=== PATIENT | male | born 1980 | race Caucasian/White ===

== ENCOUNTER 2017-11-16 19:10 | Emergency (ER) | payer OTHER, MEDICAID, SELFPAY ==
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
[2017-11-16 19:22] VITALS: BP 171/113; PULSE 94; RESP 15; TEMP 36.4; O2SAT 100; BMI 19.1
[2017-11-16] MEDS: DOXYCYCLINE HYCLATE 100 MG TABLET PO (19:53)
[2017-11-16] MEDS: IBUPROFEN 400 MG TABLET 800 MG PO (19:53)
[2017-11-16] MEDS: levETIRAcetam 250 MG TABLET 1000 MG PO (19:54)
[2017-11-16 20:17] VITALS: BP 160/90; PULSE 92; RESP 18; TEMP 36.3; O2SAT 98
--- NOTE | 2017-11-21 16:38 | PC.NURSE ---
Called for pt follow up,no answer
== END 2017-11-16 20:17 | disposition home or self-care (01) ==
PROVIDERS: Emergency Provider Emergency Medicine
DX: L03.116 Cellulitis of left lower limb (principal)
CPT/HCPCS: 99282; 99283

== ENCOUNTER 2019-07-07 16:43 | Emergency (ER) | payer MEDICARE, MEDICAID, SELFPAY ==
[2019-07-07 16:56] VITALS: BP 173/111; PULSE 79; RESP 22; TEMP 37.1; O2SAT 99; BMI 22.4
--- NOTE | 2019-07-07 16:59 | DI.RAD.S_ITS ---
PROCEDURE: XR HAND LT MIN 3V INDICATIONS: swelling / pain TECHNIQUE: 3 views of the hand(s) acquired. COMPARISON: [facility], , HAND 3V LEFT, 07/25/2009, 17:20. FINDINGS: Bones: There is suggestion of cortical irregularity involving the base of the left fourth or fifth metacarpal seen only on the lateral projection. There is moderate overlying soft tissue swelling. No definite fractures or dislocations identified otherwise. Carpal bones are normally aligned. No suspicious bony lesions. Soft tissues: No suspicious soft tissue calcifications. IMPRESSION: Moderate soft tissue swelling of the left hand with possible nondisplaced base of fourth or fifth metacarpal fracture seen only on the lateral projection. Recommend immobilization and repeat imaging in 10-14 days. Dictated by: Jamal Rao M.D. on 07/07/2019 at 17:23 Approved by: Jamal Rao M.D. on 07/07/2019 at 17:25
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
[2019-07-07] MEDS: CLINDAMYCIN 150 MG CAPSULE 300 MG PO (19:53)
[2019-07-07] MEDS: KETOROLAC 60 MG/2 ML VIAL IM (19:53)
[2019-07-07 20:05] VITALS: BP 155/91; PULSE 82; RESP 19; O2SAT 98
== END 2019-07-07 20:11 | disposition home or self-care (01) ==
PROVIDERS: Emergency Provider Nurse Practitioner Family
DX: S62.339A Displaced fracture of neck of unspecified metacarpal bone, initial encounter for closed fracture (principal); L03.114 Cellulitis of left upper limb; W22.8XXA Striking against or struck by other objects, initial encounter
CPT/HCPCS: 29125; 73130; 96372; 99283; 99284; J1885

== ENCOUNTER 2019-08-01 17:34 | Emergency (ER) | payer MEDICARE, MEDICAID, SELFPAY ==
--- NOTE | 2019-08-01 18:13 | ED_ITS ---
HPI - Extremity Injury (Upper) General Chief Complaint: Extremity Problem,Nontraumatic Stated Complaint: Bilateral wrist/hand pain Time Seen by Provider: 08/01/19 18:02 Source: patient Mode of arrival: Ambulatory Limitations: no limitations History of Present Illness HPI narrative: 39M daily smoker and user of IV drugs presents with bilateral hand and wrist pain since falling off his scooter a few days ago. His pain is worse with motion and improves with rest. He denies other injury. Also he had a small superficial abscess on the dorsum of R foream which he drained himself, but has some surrounding erythema. He denies systemic findings such as fever, chills, nausea or vomiting. Has no chest pain or shortness of breath. Finally, patient states that he is out of his seizure medication MD complaint: injury to: left, right, wrist and hand Onset (ago): day(s) Other injuries: none Handedness: right Place: outdoors Severity: moderate Relieving factors: immobilization Exacerbating factors: movement of extremity Context: fall and direct blow Associated symptoms: denies other symptoms Related Data Home Medications Medication Instructions Recorded Confirmed Diltiazem Hydrochloride (Cardizem) 240 mg PO Q DAY #0 10/28/09 FUROSEMIDE (Lasix) 20 mg Q DAY #0 10/28/09 HYDROCHLOROTHIAZIDE (Hydrodiuril / 25 mg Q DAY #0 10/28/09 Hctz) LISINOPRIL (Zestril / Prinivil) 10 mg Q DAY #0 10/28/09 [ISOSORBIDE] 30 mg PO Q DAY #0 10/28/09 [LEVETIRACETA] 1,500 mg BID #0 11/04/09 Previous Rx's Medication Instructions Recorded levetiracetam [Keppra] 1,000 mg PO BID #120 tab 11/16/17 sertraline 25 mg PO DAILY #30 tab 11/16/17 clindamycin HCl 300 mg PO QID #40 cap 07/07/19 doxycycline hyclate 100 mg PO BID #20 cap 08/01/19 levetiracetam [Keppra] 1,500 mg PO BID 30 Days #180 tab 08/01/19 Allergies Allergy/AdvReac Type Severity Reaction Status Date / Time morphine [MORPHINE] Allergy Severe mccann on Verified 11/16/17 19:22 skin Penicillins [PENICILLINS] AdvReac Severe vomiting Verified 11/16/17 19:22 Review of Systems Constitutional Constitutional: Denies chills, Denies fatigue, Denies fever(s), Denies frequent falls, Denies lethargy and Denies weakness Eyes Eyes: Denies change in vision, Denies eye discharge, Denies irritation and Denies loss of vision ENT Ears, Nose, Mouth, and Throat: Denies change in voice, Denies dizziness, Denies neck pain, Denies sore throat and Denies throat swelling Cardiovascular Cardiovascular: Denies chest pain, Denies irregular heart rhythm, Denies lightheadedness, Denies palpitations, Denies dyspnea, Denies dyspnea on exertion and Denies orthopnea Respiratory Respiratory: Denies cough, Denies dyspnea, Denies dyspnea on exertion and Denies wheezing Gastrointestinal Gastrointestinal: Denies abdominal pain, Denies change in bowel habits, Denies diarrhea, Denies nausea and Denies vomiting Musculoskeletal Musculoskeletal: Reports arthralgias, Reports joint swelling, Denies neck pain and Denies numbness Integumentary/Breasts Skin/Breast: Denies pruritus, Reports erythema, Denies rash, Reports skin pain, Reports skin swelling and Denies wounds Neurologic Neurologic: Denies behavioral changes, Denies confusion, Denies dizziness, Denies frequent falls, Denies loss of vision, Denies numbness and Denies weakness Psychiatric Psychiatric: Denies anxiety, Denies behavioral changes, Denies confusion, Denies depression, Denies homicidal ideation and Denies suicidal ideation Endocrine Endocrine: Denies fatigue, Denies flushing and Denies palpitations Hematologic/Lymphatic Hematologic/Lymphatic: Denies easy bruising Allergic/Immunologic Allergic/Immunologic: Denies urticaria, Denies throat swelling and Denies wheezing Patient History Medical History Epilepsy (Acute) Hypertension (Acute) Surgical History No pertinent past surgical history (Acute) Social History Smoking Status: Current every day smoker Smoking Status: Current every day smoker tobacco type: cigarettes alcohol intake frequency: a few times a week Substance Use Type: marijuana Exam Narrative Exam Narrative: GENERAL: [39] year old patient appears stated age. Well- nourished, well-developed patient, in mild distress. HEAD: Atraumatic. Normocephalic. EYES: Pupils equal round and reactive. Extraocular motions intact. No scleral icterus. No injection or drainage. ENT: Nose without bleeding, purulent drainage. Throat without erythema, tonsill ar hypertrophy or exudate. Airway patent. NECK: Trachea midline. Non tender CARDIOVASCULAR: Regular rate and rhythm without murmurs, gallops, or rubs. RESPIRATORY: Clear to auscultation. Breath sounds equal bilaterally. No wheezes, rales, or rhonchi. GASTROINTESTINAL: Abdomen soft, non-tender, nondistended. EXTREMITIES: Pain with full ROM of B/L hand/wrist. No obvious deformity. Closed. No numbness or tingling. BACK: Nontender without deformity or crepitance. No flank tenderness. NEURO: AOx3. SKIN: No rash or erythema of visible areas Initial Vital Signs Initial Vital Signs: Vital Signs Temperature 98.3 F 08/01/19 18:18 Pulse Rate 80 08/01/19 18:18 Respiratory Rate 18 08/01/19 18:18 Blood Pressure 166/113 H 08/01/19 18:18 Pulse Oximetry 99 08/01/19 18:18 Course Orders Ordered: ED Orders 08/01/19 18:13 XR hand LT min 3V Stat XR hand RT min 3V Stat XR wrist LT min 3V Stat XR wrist RT min 3V Stat Vital Signs Vital signs: Vital Signs - 8 hr 08/01/19 18:18 Temperature 98.3 F Pulse Rate 80 Respiratory Rate 18 Blood Pressure 166/113 H Pulse Oximetry 99 MDM - Extremity Injury (Upper) Imaging Data Extremity x-ray #1: Radiologist's Impression: [address] [address] XRay Report Signed Patient: Amish Marc LMR#: [id number] : 1980Acct:[id number] Age/Sex: 39 / MDate of Service: 08/01/19 Loc: ED Accession Number: [id number] Procedure: XR wrist RT min 3V Ordering Provider: Mike Powell D.O. PROCEDURE: XR WRIST RT MIN 3V INDICATIONS: fall with wrist pain TECHNIQUE: 4 views of the wrist were acquired. COMPARISON: [facility], , WRIST MINIMUM 3 VIEWS LEFT, 07/25/2009, 17:26. FINDINGS: Bones: No fractures or dislocations. No suspicious bony lesions. Scaphoid view: Scaphoid is intact. Soft tissues: No suspicious soft tissue calcifications. IMPRESSION: No acute right wrist fracture or dislocation. Dictated by: Nemesio Gray M.D. on 08/01/2019 at 18:43 Approved by: Nemesio Gray M.D. on 08/01/2019 at 18:[address] [address] XRay Report Signed Patient: Amish Marc LMR#: [id number] : 1980Acct:[id number] Age/Sex: 39 / MDate of Service: 08/01/19 Loc: ED Accession Number: [id number] Procedure: XR wrist LT min 3V Ordering Provider: Mike Powell D.O. PROCEDURE: XR WRIST LT MIN 3V INDICATIONS: fall with wrist pain TECHNIQUE: 4 views of the wrist were acquired. COMPARISON: [facility], WRIST MINIMUM 3 VIEWS LEFT, 07/25/2009, 17:26. FINDINGS: Bones: No fractures or dislocations. No suspicious bony lesions. Scaphoid view: Scaphoid is grossly intact. Soft tissues: No suspicious soft tissue calcifications. IMPRESSION: No acute left wrist fracture or dislocation. Dictated by: Nemesio Gray M.D. on 08/01/2019 at 18:42 Approved by: Nemesio Gray M.D. on 08/01/2019 at 18:43 Amish Marc 39 M [address] [address] XRay Report Signed Patient: Amish Marc LMR#: [id number] : 1980Acct:[id number] Age/Sex: 39 / MDate of Service: 08/01/19 Loc: ED Accession Number: [id number] Procedure: XR hand LT min 3V Ordering Provider: Mike Powell D.O. PROCEDURE: XR HAND LT MIN 3V INDICATIONS: fall with hand/wrist pain TECHNIQUE: 3 views of the hand(s) acquired. COMPARISON: [facility], XR HAND LT MIN 3V, 07/07/2019, 15:59. FINDINGS: Bones: No fractures or dislocations. Carpal bones are normally aligned. No s uspicious bony lesions. Soft tissues: No suspicious soft tissue calcifications. Mild dorsal soft tissue swelling is seen. IMPRESSION: Mild dorsal soft tissue swelling. No acute left hand fracture or dislocation. Dictated by: Nemesio Gray M.D. on 08/01/2019 at 18:44 Approved by: Nemesio Gray M.D. on 08/01/2019 at 18:45 Chart [facility] DATE TYPE STATUS REF RANGE/AUTHOR Hx 08/01/19 18:13 Gray,Nemesio 08/01/19 18:13 Gray,Nemesio 08/01/19 18:13 Gray,Nemesio 08/01/19 18:13 Gray,Nemesio 07/07/19 16:59 MairaAmish Pierson 39, M0 1980 [facility] ER, Main ED [place] 185.42cm 72.575kg BMI: 21.1kg/m? Extremity Problem,Nontraumatic Search Chart No Data to Display NF - Not included in interaction checking mccann on skin vomiting ONSET Today 18:18 Amish Marc 39 M 1980 [place] [address] XRay Report Signed Patient: Amish Marc LMR#: [id number] : 1980Acct:[id number] Age/Sex: 39 / MDate of Service: 08/01/19 Loc: ED Accession Number: [id number] Procedure: XR hand RT min 3V Ordering Provider: Mike Powell D.O. PROCEDURE: XR HAND RT MIN 3V INDICATIONS: fall with hand and wrist pain TECHNIQUE: 3 views of the hand(s) acquired. COMPARISON: [facility], CR, XR HAND LT MIN 3V, 07/07/2019, 15:59. FINDINGS: Bones: No fractures or dislocations. Carpal bones are normally aligned. No suspicious bony lesions. Soft tissues: No suspicious soft tissue calcifications. IMPRESSION: No acute right hand fracture or dislocation. Dictated by: Nemesio Gray M.D. on 08/01/2019 at 18:43 Approved by: Nemesio Gray M.D. on 08/01/2019 at 18:44 Discharge Plan Departure Patient Disposition: Home Clinical Impression: Acute wrist pain, Bilateral hand pain, Abscess Discharge Date/Time: 08/01/19 19:05 Instructions: DI for Cellulitis -- Adult, DI for Wrist Pain Activity Restrictions/Additional Instructions: *You have been diagnosed with [ bilateral hand and wrist pain, healing abscess and medical non-compliance ] *What to do: *Take medications as directed *Follow up with your primary care provider in 2-3 days, call for an appointment. Let them know you were seen in the Emergency Department and that we ask that you be seen in follow up *Return to ER if you should have any new, worsening or concerning symptoms 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: New doxycycline hyclate 100 mg capsule 100 mg PO BID Qty: 20 RF: 0 levetiracetam [Keppra] 500 mg tablet 1,500 mg PO BID 30 Days Qty: 180 RF: 0 No Action Diltiazem Hydrochloride (Cardizem) 240 mg PO Q DAY Qty: 0 RF: 0 LISINOPRIL (Zestril / Prinivil) 10 mg Q DAY Qty: 0 RF: 0 [ISOSORBIDE] 30 mg PO Q DAY Qty: 0 RF: 0 HYDROCHLOROTHIAZIDE (Hydrodiuril / Hctz) 25 mg Q DAY Qty: 0 RF: 0 FUROSEMIDE (Lasix) 20 mg Q DAY Qty: 0 RF: 0 [LEVETIRACETA] 1,500 mg BID Qty: 0 RF: 0 levetiracetam [Keppra] 500 mg tablet 1,000 mg PO BID Qty: 120 RF: 0 sertraline 25 mg tablet 25 mg PO DAILY Qty: 30 RF: 0 clindamycin HCl 300 mg capsule 300 mg PO QID Qty: 40 RF: 0
[2019-08-01 18:18] VITALS: BP 166/113; PULSE 80; RESP 18; TEMP 36.8; O2SAT 99; BMI 21.1
== END 2019-08-01 19:05 | disposition home or self-care (01) ==
PROVIDERS: Emergency Provider Emergency Medicine
DX: M25.532 Pain in left wrist (principal); M25.531 Pain in right wrist; L02.413 Cutaneous abscess of right upper limb; W05.1XXA Fall from non-moving nonmotorized scooter, initial encounter
CPT/HCPCS: 73110; 73130; 99283

== ENCOUNTER 2019-09-06 17:09 | Emergency (ER) | payer MEDICARE, MEDICAID, SELFPAY ==
[2019-09-06 17:13] VITALS: BP 179/106; PULSE 98; RESP 22; TEMP 37.2; O2SAT 100
[2019-09-06] MEDS: CLINDAMYCIN 150 MG CAPSULE 300 MG PO (19:25)
[2019-09-06] MEDS: LIDO 1%/SOD BICARB 8.4% (10ML) 10 ML SYRINGE INJ (19:26)
[2019-09-06 19:38] VITALS: BP 165/90; PULSE 88; RESP 16; TEMP 37.2; O2SAT 99
--- NOTE | 2019-09-06 20:33 | ED.SKABFB ---
HPI - Skin/Abscess/Foreign Bdy <PA Rodgers - Last Filed: 09/06/19 20:39> General Chief complaint: Skin/Abscess/Foreign Body Stated complaint: Abcess on Lt Arm Time Seen by Provider: 09/06/19 18:19 Source: patient Mode of arrival: Ambulatory Limitations: no limitations History of Present Illness HPI narrative: The patient is a 39-year-old male current smoker with history of IV drug use who presents with a chief complaint of an abscess on his left forearm. He has noticed it 4 days ago. He took a single doxycycline that he had left over from a previous prescription. Denies any fevers nausea vomiting or diarrhea. He states he usually tries to drain them himself, but did not do that this time. He states it is very hard, does not think that I would get anything out of it but would like me to try. Related Data Home Medications Medication Instructions Recorded Confirmed Diltiazem Hydrochloride (Cardizem) 240 mg PO Q DAY #0 10/28/09 FUROSEMIDE (Lasix) 20 mg Q DAY #0 10/28/09 HYDROCHLOROTHIAZIDE (Hydrodiuril / 25 mg Q DAY #0 10/28/09 Hctz) LISINOPRIL (Zestril / Prinivil) 10 mg Q DAY #0 10/28/09 [ISOSORBIDE] 30 mg PO Q DAY #0 10/28/09 [LEVETIRACETA] 1,500 mg BID #0 11/04/09 Previous Rx's Medication Instructions Recorded levetiracetam [Keppra] 1,000 mg PO BID #120 tab 11/16/17 sertraline 25 mg PO DAILY #30 tab 11/16/17 clindamycin HCl 300 mg PO QID #40 cap 07/07/19 doxycycline hyclate 100 mg PO BID #20 cap 08/01/19 clindamycin HCl 300 mg PO QID #40 cap 09/06/19 Allergies Allergy/AdvReac Type Severity Reaction Status Date / Time morphine [MORPHINE] Allergy Severe mccann on Verified 11/16/17 19:22 skin Penicillins [PENICILLINS] AdvReac Severe vomiting Verified 11/16/17 19:22 Review of Systems <PA Rodgers - Last Filed: 09/06/19 20:39> Review of Systems Narrative: GENERAL: Denies chills, fatigue, malaise, fever, sweats. HEENT: Denies sinus pain, ear pain, sore throat, difficulty swallowing, dizziness. RESPIRATORY: Denies dyspnea, cough, wheezing, hemoptysis, sputum. CARDIOVASCULAR: Denies chest pain, palpitations, orthopnea, edema, GASTROINTESTINAL: Denies nausea, vomiting, abdominal pain, diarrhea, constipation, melena. : Denies dysuria, frequency, incontinence, hematuria, urinary retention. MUSCULOSKELETAL: denies weakness, joint pain, or bony pain SKIN: See HPI NEUROLOGIC: Denies weakness, headache, numbness, change in speech, confusion, seizures, incoordination. PSYCHIATRIC: No concerning psychosocial issues. 12 point review of systems is negative except for those stated above Patient History <PA Rodgers - Last Filed: 09/06/19 20:39> Medical History (Updated 09/06/19 @ 19:13 by PA Rodgers) Epilepsy (Acute) Hypertension (Acute) Surgical History No pertinent past surgical history (Acute) Social History Smoking Status: Current every day smoker Smoking Status: Current every day smoker tobacco type: cigarettes alcohol intake frequency: a few times a week Substance Use Type: heroin Exam <PA Rodgers - Last Filed: 09/06/19 20:39> Narrative Exam Narrative: GENERAL: This is a well-nourished, well-developed patient, no acute distress HEAD: Atraumatic. Normocephalic. No temporal or scalp tenderness. EYES: Pupils equal round and reactive. Extraocular motions intact. No scleral icterus. No injection or drainage. ENT: Nose without bleeding, purulent drainage or septal hematoma. Throat without erythema, tonsillar hypertrophy or exudate. Uvula midline. Airway patent. NECK: Trachea midline. No JVD or lymphadenopathy. Supple, nontender, no meningeal signs. CARDIOVASCULAR: Regular rate and rhythm RESPIRATORY: Clear to auscultation. Breath sounds equal bilaterally. No wheezes, rales, or rhonchi. No cough. No increased respiratory effort. No accessory muscle use. GASTROINTESTINAL: Abdomen soft, non-tender, nondistended. No hepato-splenomegaly, or palpable masses. No guarding. EXTREMITIES: Full range of motion left arm, including left elbow and left wrist. Positive left radial pulse. Capillary refill less than 2 seconds all fingers left hand. Skin exam is noted. BACK: Nontender without deformity or crepitance. No flank tenderness. NEURO: AOx3. SKIN: The 2 x 2 cm abscess noted on posterior aspect of left forearm, surrounded by 8 cm of erythema. No obvious drainage. 0.5 cm area of fluctuant in noted in center. Initial Vital Signs Initial Vital Signs: Vital Signs Temperature 98.9 F 09/06/19 17:13 Pulse Rate 98 H 09/06/19 17:13 Respiratory Rate 22 09/06/19 17:13 Blood Pressure 179/106 H 09/06/19 17:13 Pulse Oximetry 100 09/06/19 17:13 <Faheem Penny DO - Last Filed: 09/06/19 23:52> Initial Vital Signs Initial Vital Signs: Vital Signs Temperature 98.9 F 09/06/19 17:13 Pulse Rate 98 H 09/06/19 17:13 Respiratory Rate 22 09/06/19 17:13 Blood Pressure 179/106 H 09/06/19 17:13 Pulse Oximetry 100 09/06/19 17:13 Procedures <PA Rodgers - Last Filed: 09/06/19 20:39> Abscess I/D I&D #1: Site: upper extremity Side (if applicable): left Local Anesthetic: lidocaine 1% and with bicarb Amount of anesthesia used (mL): 4 Technique: incised with #11 blade Irrigation: Yes Scores <PA Rodgers - Last Filed: 09/06/19 20:39> GCS [place] coma scale eye opening: Spontaneous [place] coma scale verbal response: Orientated [place] coma scale motor response: Obey commands [place] coma scale total score: 15 Course <PA Rodgers - Last Filed: 09/06/19 20:39> Orders Ordered: Discontinued Medications Clindamycin HCl (Cleocin) 300 mg PO NOW ONE Stop: 09/06/19 19:06 Last Admin: 09/06/19 19:25 Dose: 300 mg Documented by: SURJIT Lidocaine/Sodium Bicarbonate (Buffered Lidocaine 10 Ml Syr) 10 ml INJ NOW ONE Stop: 09/06/19 18:30 Last Admin: 09/06/19 19:26 Dose: 10 ml Documented by: SURJIT Vital Signs Vital signs: Vital Signs - 8 hr 09/06/19 17:13 09/06/19 19:38 Temperature 98.9 F 98.9 F Pulse Rate 98 H 88 Respiratory Rate 22 16 Blood Pressure 179/106 H 165/90 H Pulse Oximetry 100 99 <Faheem Penny DO - Last Filed: 09/06/19 23:52> Orders Ordered: Discontinued Medications Clindamycin HCl (Cleocin) 300 mg PO NOW ONE Stop: 09/06/19 19:06 Last Admin: 09/06/19 19:25 Dose: 300 mg Documented by: SURJIT Lidocaine/Sodium Bicarbonate (Buffered Lidocaine 10 Ml Syr) 10 ml INJ NOW ONE Stop: 09/06/19 18:30 Last Admin: 09/06/19 19:26 Dose: 10 ml Documented by: SURJIT Vital Signs Vital signs: Vital Signs - 8 hr 09/06/19 17:13 09/06/19 19:38 Temperature 98.9 F 98.9 F Pulse Rate 98 H 88 Respiratory Rate 22 16 Blood Pressure 179/106 H 165/90 H Pulse Oximetry 100 99 MDM - Skin/Abscess/Foreign Bdy <PA Rodgers - Last Filed: 09/06/19 20:39> MDM Narrative Medical decision making narrative: The patient is a 39-year-old male who presents with a chief complaint of possible abscess. He was very hard, very little fluctuance. I did offer to try to needle aspirate rather than incised with an 11 blade, but the patient elected for me to use a scalpel. He initially requested numbing medicine, the declined, and stated he wanted no more numbing medicine, so I stopped using lidocaine. Incised with an 11 blade. No pus was removed. Patient requested that I stop, so I did. Wound was cleansed with povidone iodine. Patient does need a MRSA coverage given that he has a history of MRSA, does use IV drugs. I placed him on clindamycin. Patient has no signs of systemic illness, is afebrile in the emergency department, eating and drinking well. He requested to leave. I discussed at length coming back to the emergency department for any acute concerns such as inability keep down food or fluids, high fevers etcetera. Patient has no questions or concerns upon discharge and states understanding of return precautions as well as follow-up care. Discharge Plan Departure Patient Disposition: Home Clinical Impression: Abscess of skin or subcutaneous tissue Qualifiers: Site of cutaneous abscess: extremity Site of cutaneous abscess of extremity: upper extremity Laterality: left Qualified Code(s): L02.414 - Cutaneous abscess of left upper limb Discharge Date/Time: 09/06/19 19:38 Instructions: DI for Skin Abscess Activity Restrictions/Additional Instructions: Thank you for trusting us with your care today Please follow-up with primary care provider. I have given contact information at Located within [facility] lands resource manager. I sent a prescription of an antibiotic to [facility]. Please take this with a yogurt or probiotic. I suggest continued warm packs as well. Please come back to the emergency department for any acute concerns. Please monitor for signs of systemic illness such as fever, extending redness etcetera. Please come back to the emergency department for any acute concerns 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: New clindamycin HCl 300 mg capsule 300 mg PO QID Qty: 40 RF: 0 No Action Diltiazem Hydrochloride (Cardizem) 240 mg PO Q DAY Qty: 0 RF: 0 LISINOPRIL (Zestril / Prinivil) 10 mg Q DAY Qty: 0 RF: 0 [ISOSORBIDE] 30 mg PO Q DAY Qty: 0 RF: 0 HYDROCHLOROTHIAZIDE (Hydrodiuril / Hctz) 25 mg Q DAY Qty: 0 RF: 0 FUROSEMIDE (Lasix) 20 mg Q DAY Qty: 0 RF: 0 [LEVETIRACETA] 1,500 mg BID Qty: 0 RF: 0 levetiracetam [Keppra] 500 mg tablet 1,000 mg PO BID Qty: 120 RF: 0 sertraline 25 mg tablet 25 mg PO DAILY Qty: 30 RF: 0 clindamycin HCl 300 mg capsule 300 mg PO QID Qty: 40 RF: 0 doxycycline hyclate 100 mg capsule 100 mg PO BID Qty: 20 RF: 0 Referrals: [facility] [Outside] <Faheem Penny, DO - Last Filed: 09/06/19 23:52> Cosign ED Attending Cosignature Attestation: Dr Penny Co-Sign Statement: I was available for consultation during this patient's emergency department visit. This chart is signed by myself for administrative purposes only. I did not have direct contact with this patient during this visit. They were seen independently by the APC.
== END 2019-09-06 19:38 | disposition home or self-care (01) ==
PROVIDERS: Emergency Provider Nurse Practitioner Family
DX: L02.414 Cutaneous abscess of left upper limb (principal)
CPT/HCPCS: 10060; 99283

== ENCOUNTER → 2019-10-02 15:34 | Outpatient (CLI) | payer MEDICARE, MEDICAID, SELFPAY ==
--- NOTE | 2019-10-02 15:39 | DI.US.S_ITS ---
PROCEDURE: US PERIPH VENOUS LOW EXTREM RT INDICATIONS: LEG EDEMA RIGHT TECHNIQUE: Real-time imaging, as well as color and pulse Doppler interrogation, were performed of the lower extremity deep veins from the inguinal ligament to the popliteal fossa. COMPARISON: None. FINDINGS: The common femoral, femoral and popliteal veins are normally compressible, and free of intraluminal thrombus. Color and pulse Doppler demonstrate normal phasic intraluminal flow. There is normal augmentation response to distal compression maneuver. IMPRESSION: No deep venous thrombosis identified within the right lower extremity. Dictated by: Yony Mcmullen [facility] Interpreted: Negro Luna MD on 10/02/2019 at 16:53 Approved by: Negro Luna M.D. on 10/05/2019 at 13:05
== END ==
PROVIDERS: Referring Provider Family Medicine; Visit Provider Family Medicine
DX: R60.0 Localized edema (principal)
CPT/HCPCS: 93971

== ENCOUNTER 2019-10-21 21:34 | Inpatient (IN) | payer MEDICARE, MEDICAID, SELFPAY ==
[2019-10-21 21:42] VITALS: BP 169/99; PULSE 90; RESP 22; TEMP 36.5; O2SAT 99; BMI 26.4
--- NOTE | 2019-10-21 22:16 | DI.CT.S_ITS ---
PROCEDURE: CT ABDOMEN PELVIS W CON INDICATIONS: abscess Left lower quadrant with abdominal pain , deep vs superficial TECHNIQUE: After the administration of intravenous contrast, 5 mm thick sections acquired from the diaphragm to the symphysis. 5 mm coronal and sagittal reformats were acquired. For radiation dose reduction, the following was used: automated exposure control, adjustment of mA and/or kV according to patient size. COMPARISON: None. FINDINGS: Image quality: Excellent. ABDOMEN: Lung bases: A 3 mm nodule is incidentally noted in the posterior right lung base. The heart is normal in size. Solid organs: Liver is normal in size and enhancement. Gallbladder appears normal. Biliary system is non dilated. Pancreas enhances normally. Spleen is normal in size and enhancement. No adrenal nodules. The right kidney appears small with multifocal cortical scarring, which appears chronic. An exophytic cyst is seen at the inferior pole of the left kidney measuring up to 2 x 1.5 cm. The left kidney has a partially duplex and anteriorly rotated appearance without signs of significant hydronephrosis. Peritoneum and bowel: The appendix appears normal. Bowel loops demonstrate normal wall thickness and caliber. Moderate stool is noted in the colon. No free fluid or air. Nodes and vessels: No retroperitoneal or mesenteric adenopathy by size criteria. Aorta and inferior vena cava are normal in size. Miscellaneous: Subcutaneous edema is noted at the left anterior abdominal wall just anterior to the anterosuperior iliac crest. No definite drainable fluid collection is seen in this location. No involvement of the abdominal musculature or intra-abdominal extension is seen. PELVIS: Genitourinary: Bladder wall thickness is normal. Miscellaneous: No inguinal hernias or adenopathy. Bones: No suspicious bony lesions. No vertebral body compression fractures. Area of sclerosis in the right superior femoral head is suspicious for remote prior osteonecrosis without articular surface collapse. IMPRESSION: Subcutaneous edema at the left lower anterior abdominal wall is compatible with the clinical area of infection. No drainable abscess is seen. There is no intra-abdominal extension or involvement of the abdominal wall musculature. Dictated by: Negro Luna M.D. on 10/22/2019 at 8:26 Approved by: Negro Luna M.D. on 10/22/2019 at 8:37
--- NOTE | 2019-10-21 22:17 | DI.RAD.S_ITS ---
PROCEDURE: XR CHEST 1V INDICATIONS: fever, IVDA TECHNIQUE: One view of the chest was acquired. COMPARISON: [facility], , CHEST 1 VIEW, 10/28/2009, 12:12. FINDINGS: Surgical changes and devices: None. Lungs and pleura: Lungs are clear. No pleural effusions or pneumothorax. Mediastinum: Mediastinal contours appear normal. Heart is at the upper limits of normal for size. Bones and chest wall: No suspicious bony lesions. Overlying soft tissues appear unremarkable. IMPRESSION: No acute cardiopulmonary disease process. Dictated by: Pilar Mcdonald MD, PhD on 10/22/2019 at 7:53 Approved by: Pilar Mcdonald MD, PhD on 10/22/2019 at 7:54
[2019-10-21 22:28] VITALS: PULSE 82; RESP 14; O2SAT 99
[2019-10-21 22:30] VITALS: BP 151/89; PULSE 80; RESP 15; O2SAT 99
[2019-10-21] MEDS: SODIUM CHLORIDE 0.9% 1,000 ML 1000 ML IV (22:35)
[2019-10-21] MEDS: NICOTINE 21 MG PATCH TOP (22:36)
[2019-10-21 22:42] LABS: Add Manual Diff / Slide Review NO; Basophils Absolute Auto 0 /uL (0-100); Basophils Percent Auto 0.2 % (0-2); Eosinophils Absolute Auto 100 /uL (0-450); Eosinophils Percent Auto 1.4 % (2-4); Hematocrit 35.7 % (41-53); Hemoglobin 12.4 g/dL (13.5-17.5); Lymphocytes Absolute Auto 1600 /uL (1100-4500); Lymphocytes Percent Auto 17.6 % (25-40); Mean Corpuscular HGB Conc 34.9 % (30-36); Mean Corpuscular Hemoglobin 30.5 PG (26-34); Mean Corpuscular Volume 87.3 fL (80-100); Monocytes Absolute Auto 900 /uL (0-900); Monocytes Percent Auto 9.3 % (3-14); Neutrophils Absolute Auto 6600 /uL (1500-7000); Neutrophils Percent Auto 71.5 % (50-75); Platelet Count 181 X10^3/uL (150-400); Red Blood Cell Count 4.08 X10^6/uL (4.5-5.9); Red Cell Distribution Width 13.6 % (11.6-14.8); White Blood Cell Count 9.2 X10^3/uL (4.5-11.0)
[2019-10-21 22:48] LABS: Alanine Aminotransferase 14 IU/L (<50); Albumin 3.7 g/dL (3.5-5.0); Albumin Globulin Ratio 0.9 (1.0-2.8); Alkaline Phosphatase 108 U/L (38-126); Aspartate Aminotransferase 23 IU/L (17-59); BUN Creatinine Ratio 14.9 (6-22); Bilirubin Total 0.5 mg/dL (0.2-1.3); Blood Urea Nitrogen 15 mg/dL (9-20); Calcium 8.8 mg/dL (8.4-10.2); Carbon Dioxide 36 mmol/L (22-32); Chloride 97 mmol/L (98-107); Estimated Glomerular Filt Rate > 60.0 mL/min (>60); Globulin 4.1 g/dL (1.7-4.1); Glucose 109 mg/dL (70-100); HEMOLYSIS < 15 (0-50); Lipase 20 U/L (23-300); Magnesium 1.7 mg/dL (1.6-2.3); Sodium 136 mmol/L (137-145); Total Protein 7.8 g/dL (6.3-8.2)
[2019-10-21 22:49] LABS: Lactate (Lactic Acid) 0.9 mmol/L (0.7-2.1)
[2019-10-21 23:00] VITALS: PULSE 88; RESP 18
[2019-10-21 23:00] LABS: Troponin I < 0.012 ng/mL (0.01-0.034)
[2019-10-21 23:03] LABS: Procalcitonin 0.05 ng/mL (<0.5)
[2019-10-21] MEDS: VANCOMYCIN 1,500 MG/300 ML FROZ.PIGGY 200 MG IV (23:21)
[2019-10-21 23:30] VITALS: PULSE 90; RESP 19; O2SAT 98
--- NOTE | 2019-10-21 23:44 | PC.NURSE ---
Multiple raised/red areas all over body from IV drug use. MD Fajardo started EJ IV. Left hand red/swollen. Right forearm with wound from pt trying to address abscess himself, new bandage placed by MD. Left calf red/swollen. Left lower abdomen with red/raised/hard area, bruising also present. Last used this afternoon. Says he wants to get help with detox/rehab.
[2019-10-21 23:48] VITALS: BP 147/80; PULSE 93; RESP 19; O2SAT 97
[2019-10-22] VITALS (20 sets, daily range): BP systolic 128–159; BP diastolic 77–100; PULSE 80–102; RESP 12–21; TEMP 35.6–36.8; O2SAT 92–100; BMI 25.6
[2019-10-22 01:19] LABS: Bacteria Urine None Seen; RBC Urine None Seen (0-5/HPF); WBC Urine None Seen (0-5/HPF)
[2019-10-22 01:24] LABS: Appearance Urine UA CLEAR; Bilirubin Urine UA NEGATIVE (NEGATIVE); Color Urine UA YELLOW; Glucose Urine UA NEGATIVE (Negative); Ketones Urine UA NEGATIVE (NEGATIVE); Leukocyte Esterase Urine UA NEGATIVE (NEGATIVE); Nitrite Urine UA NEGATIVE (Negative); Occult Blood Urine UA NEGATIVE (Negative); Protein Urine UA NEGATIVE (Negative); Specific Gravity Urine UA 1.015 (1.000-1.035); Urobilinogen Urine UA 0.2 E.U./dL (0.2)
[2019-10-22 01:29] LABS: Culture Indicated Urine Cult Not Indicated; Urine Comments Microscopic Normal
--- NOTE | 2019-10-22 01:36 | ED.SKABFB ---
HPI - Skin/Abscess/Foreign Bdy General Chief complaint: Skin/Abscess/Foreign Body Stated complaint: Multiple wounds Time Seen by Provider: 10/21/19 21:41 Source: patient Mode of arrival: Ambulatory Limitations: no limitations History of Present Illness HPI narrative: 39-year-old gentleman with the long history of opiate use disorder with IV drug use presents with a complaint of abscesses all over. He was seen in an urgent care clinic last week was started on doxycycline and told to follow-up in the emergency room as he had enough issues that the provider there did not think that oral antibiotics were going to be adequate. He states that he has had fevers and chills, generally feeling unwell, increasing pain, fatigue, exertional dyspnea, developing abdominal pain and multiple skin areas of concern for abscess formation. He states is interested in treatment, will commit to staying in the hospital and would like help with long-term inpatient care for his drug use disorder. He notes that he did use heroin earlier today and is not currently experiencing any withdrawal symptoms. Related Data Home Medications Medication Instructions Recorded Confirmed Diltiazem Hydrochloride (Cardizem) 240 mg PO Q DAY #0 10/28/09 FUROSEMIDE (Lasix) 20 mg Q DAY #0 10/28/09 HYDROCHLOROTHIAZIDE (Hydrodiuril / 25 mg Q DAY #0 10/28/09 Hctz) LISINOPRIL (Zestril / Prinivil) 10 mg Q DAY #0 10/28/09 [ISOSORBIDE] 30 mg PO Q DAY #0 10/28/09 [LEVETIRACETA] 1,500 mg BID #0 11/04/09 Previous Rx's Medication Instructions Recorded levetiracetam [Keppra] 1,000 mg PO BID #120 tab 11/16/17 sertraline 25 mg PO DAILY #30 tab 11/16/17 clindamycin HCl 300 mg PO QID #40 cap 07/07/19 doxycycline hyclate 100 mg PO BID #20 cap 08/01/19 clindamycin HCl 300 mg PO QID #40 cap 09/06/19 Allergies Allergy/AdvReac Type Severity Reaction Status Date / Time morphine [MORPHINE] Allergy Severe mccann on Verified 10/21/19 21:42 skin Penicillins [PENICILLINS] AdvReac Severe vomiting Verified 10/21/19 21:42 Review of Systems Review of Systems Narrative: Remainder of review of systems including constitutional, ENT, cardiovascular, respiratory, GI, , musculoskeletal, skin, neurologic and psychiatric systems reviewed and are unremarkable except as noted in HPI. Patient History Medical History (Updated 10/22/19 @ 01:58 by Gladys Fajardo MD) Epilepsy (Acute) Hypertension (Acute) Opioid use disorder (Acute) Surgical History No pertinent past surgical history (Acute) Social History Smoking Status: Current every day smoker Smoking Status: Current every day smoker tobacco type: cigarettes alcohol intake frequency: a few times a week Substance Use Type: marijuana, heroin and methamphetamine Exam Narrative Exam Narrative: General: Appears generally unwell, pale mildly diaphoretic, able to relay complete history and is cooperative HEENT: No trauma to his head, pupils are 2-3 mm and reactive, sclera are mildly injected, poor dentition with dry mucous membranes Neck: Thrombophlebitis of the right external jugular from injection use with no redness or abscess Chest: Clear auscultation, no wheezes no rhonchi Cardiac: Mild tachycardia with regular rate and rhythm. With careful auscultation I do not hear murmurs or clicks Abdomen: Mildly tender throughout. He has 4 x 6 area of increasing erythema that does not feel fluctuant just superior to the anterior iliac crest with significant tendinous extending deeper and medially from this superficial area of cellulitis Spine and pelvis: No tenderness along the axial lumbar spine. No tenderness with pelvic ring manipulation Skin: Significant track allred. Significant scarring and scabs from methamphetamine ?picking?, cellulitis involving the left lower extremity beginning probably from a posterior tibial vein injection site. Left hand with cellulitis, swelling, erythema over the dorsum. Neurologic: Globally weak but nonfocal Extremities: Good peripheral perfusion. He has multiple scratches on his fingernails that I believe are trauma related and not splinter hemorrhages. The tips of his toes there are couple small petechiae toe areas that are more concerning for splinter hemorrhages Psych: Frightened, anxious, no evidence of auditory or visual hallucinations Initial Vital Signs Initial Vital Signs: Vital Signs Temperature 97.7 F 10/21/19 21:42 Pulse Rate 90 10/21/19 21:42 Respiratory Rate 22 10/21/19 21:42 Blood Pressure 169/99 H 10/21/19 21:42 Pulse Oximetry 99 10/21/19 21:42 Scores ABCD2 Citation: Lancet. 2006Mar 09;369(9198):283-92. Validation and refinement of scores to predict very early stroke risk after transient ischaemic attack. Snehal SC1, William PM, Cassy MN, Eliceo MF, Asad JS, Shayy AL, Bernabe S. Course Orders Ordered: ED Orders 10/21/19 22:05 Blood Culture Stat 10/21/19 22:10 Complete Blood Count AUTO DIFF Stat Comprehensive Metabolic Panel Stat Lactate (Lactic Acid) Stat Lipase Stat Magnesium Stat Procalcitonin Stat Troponin I Stat 10/21/19 22:16 CT abdomen pelvis w con Stat 10/21/19 22:17 XR chest 1V Stat 10/22/19 01:07 Urinalysis and Microscopic Stat 10/22/19 04:30 Complete Blood Count AUTO DIFF DAILY Comprehensive Metabolic Panel DAILY 10/22/19 04:47 COVID19 -ED/INPAT/OR/L&D Stat Imipenem/Cilastatin Sodium 1, (000 mg/ Sodium Chloride) 250 mls @ 250 mls/hr IV Q8HR DARLENE Discontinued Medications Sodium Chloride (Normal Saline 0.9%) 1,000 mls @ 1,000 mls/hr IV BOLUS ONE Stop: 10/21/19 23:14 Last Infusion: 10/22/19 01:52 Dose: 0 mls/hr Documented by: Admin: 10/21/19 22:35 Dose: 1,000 mls/hr Documented by: GADIEL Imipenem/Cilastatin Sodium 1, (000 mg/ Sodium Chloride) 250 mls @ 250 mls/hr IV NOW ONE Stop: 10/21/19 22:21 Last Admin: 10/22/19 01:52 Dose: Not Given Documented by: BHAVNA Vancomycin HCl/Dextrose (Vancomycin) 1,500 mg in 300 mls @ 200 mls/hr IV NOW ONE Stop: 10/21/19 23:49 Last Infusion: 10/22/19 01:16 Dose: 0 mls/hr Documented by: Admin: 10/21/19 23:21 Dose: 200 mls/hr Documented by: GADIEL Imipenem/Cilastatin Sodium 250 (mg/ Sodium Chloride) 100 mls @ 200 mls/hr IV NOW ONE Stop: 10/22/19 01:28 Last Admin: 10/22/19 02:04 Dose: Not Given Documented by: BHAVNA Imipenem/Cilastatin Sodium 1, (000 mg/ Sodium Chloride) 250 mls @ 250 mls/hr IV NOW ONE Stop: 10/22/19 01:33 Last Infusion: 10/22/19 03:13 Dose: 0 mls/hr Documented by: Admin: 10/22/19 01:45 Dose: 250 mls/hr Documented by: BHAVNA Nicotine (Nicoderm) 21 mg TOP NOW ONE Stop: 10/21/19 22:16 Last Admin: 10/21/19 22:36 Dose: 21 mg Documented by: GADIEL Potassium Chloride (Klor-Con M20) 40 meq PO NOW ONE Stop: 10/22/19 01:48 Last Admin: 10/22/19 02:30 Dose: 40 meq Documented by: BHAVNA Vital Signs Vital signs: Vital Signs - 8 hr 10/21/19 23:00 10/21/19 23:30 10/21/19 23:48 Pulse Rate 88 90 93 H Respiratory Rate 18 19 19 Blood Pressure 147/80 H Pulse Oximetry 98 97 10/22/19 00:00 10/22/19 00:30 10/22/19 01:00 Pulse Rate 92 H 97 H 93 H Respiratory Rate 16 17 17 Blood Pressure 142/81 H 159/88 H 148/86 H Pulse Oximetry 96 94 96 10/22/19 01:30 10/22/19 02:00 10/22/19 02:30 Pulse Rate 83 89 92 H Respiratory Rate 15 16 15 Blood Pressure 151/88 H 151/93 H 151/83 H Pulse Oximetry 96 95 93 10/22/19 03:00 10/22/19 03:30 10/22/19 04:00 Pulse Rate 88 92 H 94 H Respiratory Rate 16 17 17 Blood Pressure 145/82 H 155/91 H 145/97 H Pulse Oximetry 93 94 92 10/22/19 04:30 10/22/19 05:00 10/22/19 05:30 Pulse Rate 101 H 84 86 Respiratory Rate 21 16 12 Blood Pressure 157/90 H 134/77 137/85 Pulse Oximetry 93 93 93 10/22/19 06:00 Pulse Rate 82 Respiratory Rate 13 Blood Pressure 146/88 H Pulse Oximetry 93 MDM - Skin/Abscess/Foreign Bdy Medical Records Attestation: I reviewed the patient's medical records. Lab Data Attestation: I reviewed the patient's lab results. Result diagrams: 10/22/19 04:30 10/22/19 04:30 Labs: Lab Results 10/21/19 10/21/19 10/21/19 Range/Units 22:10 22:10 22:10 WBC 9.2 (4.5-11.0) X10^3/uL RBC 4.08 L (4.5-5.9) X10^6/uL Hgb 12.4 L (13.5-17.5) g/dL Hct 35.7 L (41-53) % MCV 87.3 (80-100) fL MCH 30.5 (26-34) PG MCHC 34.9 (30-36) % RDW 13.6 (11.6-14.8) % Plt Count 181 (150-400) X10^3/uL Neut % (Auto) 71.5 (50-75) % Lymph % (Auto) 17.6 L (25-40) % [place] % (Auto) 9.3 (3-14) % Eos % (Auto) 1.4 L (2-4) % Baso % (Auto) 0.2 (0-2) % Neut # (Auto) 6600 (7341-9823) /uL Lymph # (Auto) 1600 (1742-6776) /uL [place] # (Auto) 900 (0-900) /uL Eos # (Auto) 100 (0-450) /uL Baso # (Auto) 0 (0-100) /uL Sodium 136 L (137-145) mmol/L Potassium 3.0 L (3.4-5.1) mmol/L Chloride 97 L (98-107) mmol/L Carbon Dioxide 36 H (22-32) mmol/L BUN 15 (9-20) mg/dL Creatinine 1.01 (0.66-1.25) mg/dL Estimated GFR > 60.0 (>60) mL/min BUN/Creatinine Ratio 14.9 (6-22) Glucose 109 H (70-100) mg/dL Lactate (0.7-2.1) mmol/L Calcium 8.8 (8.4-10.2) mg/dL Magnesium 1.7 (1.6-2.3) mg/dL Total Bilirubin 0.5 (0.2-1.3) mg/dL AST 23 (17-59) IU/L ALT 14 (<50) IU/L Alkaline Phosphatase 108 (38-126) U/L Troponin I < 0.012 (0.01-0.034) ng/mL Total Protein 7.8 (6.3-8.2) g/dL Albumin 3.7 (3.5-5.0) g/dL Globulin 4.1 (1.7-4.1) g/dL Albumin/Globulin Ratio 0.9 L (1.0-2.8) Lipase 20 L (23-300) U/L Procalcitonin 0.05 (<0.5) ng/mL Urine Color Urine Appearance Urine pH (4.5-8.0) Ur Specific [place] (1.000-1.035) Urine Protein (Negative) Urine Glucose (UA) (Negative) g/dL Urine Ketones (NEGATIVE) Urine Occult Blood (Negative) Urine Nitrate (Negative) Urine Bilirubin (NEGATIVE) Urine Urobilinogen (0.2) E.U./dL Ur Leukocyte Esterase (NEGATIVE) Urine RBC (0-5/HPF) Urine WBC (0-5/HPF) Urine Bacteria (None) Ur Culture Indicated? Micro UA Comment COVID-19 PCR (Negative) 10/21/19 10/22/19 10/22/19 Range/Units 22:10 01:07 04:30 WBC 9.6 (4.5-11.0) X10^3/uL RBC 4.09 L (4.5-5.9) X10^6/uL Hgb 12.4 L (13.5-17.5) g/dL Hct 35.8 L (41-53) % MCV 87.5 (80-100) fL MCH 30.2 (26-34) PG MCHC 34.5 (30-36) % RDW 13.3 (11.6-14.8) % Plt Count 163 (150-400) X10^3/uL Neut % (Auto) 75.1 H (50-75) % Lymph % (Auto) 15.0 L (25-40) % [place] % (Auto) 7.8 (3-14) % Eos % (Auto) 1.6 L (2-4) % Baso % (Auto) 0.5 (0-2) % Neut # (Auto) 7200 H (9107-6269) /uL Lymph # (Auto) 1400 (9629-3862) /uL [place] # (Auto) 800 (0-900) /uL Eos # (Auto) 200 (0-450) /uL Baso # (Auto) 0 (0-100) /uL Sodium (137-145) mmol/L Potassium (3.4-5.1) mmol/L Chloride (98-107) mmol/L Carbon Dioxide (22-32) mmol/L BUN (9-20) mg/dL Creatinine (0.66-1.25) mg/dL Estimated GFR (>60) mL/min BUN/Creatinine Ratio (6-22) Glucose (70-100) mg/dL Lactate 0.9 (0.7-2.1) mmol/L Calcium (8.4-10.2) mg/dL Magnesium (1.6-2.3) mg/dL Total Bilirubin (0.2-1.3) mg/dL AST (17-59) IU/L ALT (<50) IU/L Alkaline Phosphatase (38-126) U/L Troponin I (0.01-0.034) ng/mL Total Protein (6.3-8.2) g/dL Albumin (3.5-5.0) g/dL Globulin (1.7-4.1) g/dL Albumin/Globulin Ratio (1.0-2.8) Lipase (23-300) U/L Procalcitonin (<0.5) ng/mL Urine Color Yellow Urine Appearance Clear Urine pH 6.0 (4.5-8.0) Ur Specific [place] 1.015 (1.000-1.035) Urine Protein Negative (Negative) Urine Glucose (UA) Negative (Negative) g/dL Urine Ketones Negative (NEGATIVE) Urine Occult Blood Negative (Negative) Urine Nitrate Negative (Negative) Urine Bilirubin Negative (NEGATIVE) Urine Urobilinogen 0.2 (0.2) E.U./dL Ur Leukocyte Esterase Negative (NEGATIVE) Urine RBC None seen (0-5/HPF) Urine WBC None seen (0-5/HPF) Urine Bacteria None seen (None) Ur Culture Indicated? Cult not indicated Micro UA Comment Microscopic normal COVID-19 PCR (Negative) 10/22/19 10/22/19 Range/Units 04:30 04:47 WBC (4.5-11.0) X10^3/uL RBC (4.5-5.9) X10^6/uL Hgb (13.5-17.5) g/dL Hct (41-53) % MCV (80-100) fL MCH (26-34) PG MCHC (30-36) % RDW (11.6-14.8) % Plt Count (150-400) X10^3/uL Neut % (Auto) (50-75) % Lymph % (Auto) (25-40) % [place] % (Auto) (3-14) % Eos % (Auto) (2-4) % Baso % (Auto) (0-2) % Neut # (Auto) (5132-4421) /uL Lymph # (Auto) (1268-5544) /uL [place] # (Auto) (0-900) /uL Eos # (Auto) (0-450) /uL Baso # (Auto) (0-100) /uL Sodium 134 L (137-145) mmol/L Potassium 3.8 (3.4-5.1) mmol/L Chloride 99 (98-107) mmol/L Carbon Dioxide 33 H (22-32) mmol/L BUN 13 (9-20) mg/dL Creatinine 0.79 (0.66-1.25) mg/dL Estimated GFR > 60.0 (>60) mL/min BUN/Creatinine Ratio 16.5 (6-22) Glucose 120 H (70-100) mg/dL Lactate (0.7-2.1) mmol/L Calcium 8.4 (8.4-10.2) mg/dL Magnesium (1.6-2.3) mg/dL Total Bilirubin 0.9 (0.2-1.3) mg/dL AST 25 (17-59) IU/L ALT 13 (<50) IU/L Alkaline Phosphatase 109 (38-126) U/L Troponin I (0.01-0.034) ng/mL Total Protein 7.2 (6.3-8.2) g/dL Albumin 3.3 L (3.5-5.0) g/dL Globulin 3.9 (1.7-4.1) g/dL Albumin/Globulin Ratio 0.8 L (1.0-2.8) Lipase (23-300) U/L Procalcitonin (<0.5) ng/mL Urine Color Urine Appearance Urine pH (4.5-8.0) Ur Specific [place] (1.000-1.035) Urine Protein (Negative) Urine Glucose (UA) (Negative) g/dL Urine Ketones (NEGATIVE) Urine Occult Blood (Negative) Urine Nitrate (Negative) Urine Bilirubin (NEGATIVE) Urine Urobilinogen (0.2) E.U./dL Ur Leukocyte Esterase (NEGATIVE) Urine RBC (0-5/HPF) Urine WBC (0-5/HPF) Urine Bacteria (None) Ur Culture Indicated? Micro UA Comment COVID-19 PCR Negative (Negative) MDM Narrative Medical decision making narrative: 39-year-old gentleman with severe opiate use disorder who is interested in help with inpatient treatment. Currently left lower extremity cellulitis developing cellulitis and phlegmon not yet an abscess over the left anterior iliac crest without evidence of full abscess formation or intra-abdominal component. Significant constipation likely contributing to his abdominal pain consistent with his chronic opioid use. Still concern for with endocarditis however white count and CRP are both unremarkable. Suspect that he would benefit from an echocardiogram and to sets of blood cultures (4 bottles) were drawn prior to antibiotic starting today. He is not septic at this point within normal lactic acid normal blood pressure and normal white blood cell count. No intra-abdominal component aside from the severe obstipation. He is mildly hypokalemic. With the cellulitis and multiple other abscesses, worse while taking oral doxycycline, I believe admission and IV antibiotics at this point is most appropriate. Social work consult to help with discharge planning and addiction treatment will also be helpful. 130 Will call hospitalist, Dr Dey 340 confirm night hospitalist 345 general warehouse associate confirms hospitalist, number and inabilty to reach her. suggests calling day hospitalist. Will order am labs, and next abx dose and wait for early am to call day hospitalist. 650 Dr Song returns call, accepts admti. Discharge Plan Departure Patient Disposition: Admitted As Inpatient Clinical Impression: Opioid use disorder, Cellulitis of left leg, Abdominal wall cellulitis, Cellulitis of hand
[2019-10-22] MEDS: IMIPENEM/CILASTATIN 1,000 MG in SODIUM CHLORIDE 0.9% 250 ML IV (01:45)
[2019-10-22] MEDS: POTASSIUM CHLORIDE 20 MEQ TAB 40 MEQ PO (02:30)
[2019-10-22 04:41] LABS: Add Manual Diff / Slide Review NO; Basophils Absolute Auto 0 /uL (0-100); Basophils Percent Auto 0.5 % (0-2); Eosinophils Absolute Auto 200 /uL (0-450); Eosinophils Percent Auto 1.6 % (2-4); Hematocrit 35.8 % (41-53); Hemoglobin 12.4 g/dL (13.5-17.5); Lymphocytes Absolute Auto 1400 /uL (1100-4500); Mean Corpuscular HGB Conc 34.5 % (30-36); Mean Corpuscular Hemoglobin 30.2 PG (26-34); Mean Corpuscular Volume 87.5 fL (80-100); Monocytes Absolute Auto 800 /uL (0-900); Monocytes Percent Auto 7.8 % (3-14); Neutrophils Absolute Auto 7200 /uL (1500-7000); Neutrophils Percent Auto 75.1 % (50-75); Platelet Count 163 X10^3/uL (150-400); Red Blood Cell Count 4.09 X10^6/uL (4.5-5.9); Red Cell Distribution Width 13.3 % (11.6-14.8); White Blood Cell Count 9.6 X10^3/uL (4.5-11.0)
[2019-10-22 04:49] LABS: Alanine Aminotransferase 13 IU/L (<50); Albumin 3.3 g/dL (3.5-5.0); Albumin Globulin Ratio 0.8 (1.0-2.8); Alkaline Phosphatase 109 U/L (38-126); Aspartate Aminotransferase 25 IU/L (17-59); BUN Creatinine Ratio 16.5 (6-22); Bilirubin Total 0.9 mg/dL (0.2-1.3); Blood Urea Nitrogen 13 mg/dL (9-20); Calcium 8.4 mg/dL (8.4-10.2); Carbon Dioxide 33 mmol/L (22-32); Chloride 99 mmol/L (98-107); Estimated Glomerular Filt Rate > 60.0 mL/min (>60); Globulin 3.9 g/dL (1.7-4.1); Glucose 120 mg/dL (70-100); HEMOLYSIS 23 (0-50); Potassium 3.8 mmol/L (3.4-5.1); Sodium 134 mmol/L (137-145); Total Protein 7.2 g/dL (6.3-8.2)
[2019-10-22 05:12] LABS: COVID19 -Nasal RAPID Negative (Negative)
--- NOTE | 2019-10-22 06:26 | PC.NURSE ---
Pt asleep, waiting bed placement
--- NOTE | 2019-10-22 07:37 | PC.NURSE ---
Day shift: Pt on unit at [facility] 0735 from ED. Denies chest pain or nausea. C/o pain in bilat knees and back. He is A&Ox3 and calm and cooperative with care at this time. IV in left neck and is SL. Per ED RN Pt daily meth user. Left hand is swollen and redness present. Covid neg. Oriented to room and call light.
--- NOTE | 2019-10-22 08:21 | P.HP_ITS ---
History of Present Illness History of Present Illness Date Patient Seen: 10/22/19 Time Patient Seen: 08:21 Chief complaint: Multiple wounds Narrative: Amish Marc With a past medical history of epilepsy and hypertension who presented with multiple skin abscesses. He went to an urgent care and received a prescription for doxycycline last week, but these have been ineffective in patient presented to the ER with worsening pain at the sites. He denies recent fevers, chills. He denies any chest pain or palpitations, nausea, vomiting, abdominal pain other than from a lesion that is present on both sides. He denies any diarrhea or constipation. He has not had any shortness of breath or dyspnea on exertion. He states that he uses heroin daily, smokes met hamphetamine, occasionally uses alcohol and marijuana. He reports that all of his abscesses are at sites of previous injections, including his hands, legs, arms, and abdomen. He denies lesions in any place that he did not inject. His last heroin use was yesterday morning. In the emergency room, his vital signs are unremarkable. Initial laboratory findings did not show any leukocytosis with a WBC count of 9.6. He has a mild anemia with a hemoglobin of 12.4, but no other abnormal findings on his CBC. Chemistries showed a sodium of 134 and a CO2 of 33. Glucose was 120. Troponin was negative. Procalcitonin was negative. Urinalysis was negative for infection. COVID-19 PCR was negative. He was started on imipenem and vancomycin in the emergency room. He was admitted to Medicine for further management of multiple injection site abscesses. Patient History Medical History (Updated 10/22/19 @ 01:58 by Gladys Fajardo MD) Epilepsy (Acute) Hypertension (Acute) Opioid use disorder (Acute) Surgical History No pertinent past surgical history (Acute) Family & Social History Safety & Behavioral: Feels Safe in Current Yes Environment Tobacco & Substance use: Smoking Status Current every day smoker alcohol intake frequency a few times a week Substance Use Type marijuana,heroin,methamphetamine Meds Home Medications and Allergies Home Medications Medication Instructions Recorded Confirmed Type Diltiazem Hydrochloride (Cardizem) 240 mg PO Q DAY #0 10/28/09 History FUROSEMIDE (Lasix) 20 mg Q DAY #0 10/28/09 History HYDROCHLOROTHIAZIDE (Hydrodiuril / 25 mg Q DAY #0 10/28/09 History Hctz) LISINOPRIL (Zestril / Prinivil) 10 mg Q DAY #0 10/28/09 History [ISOSORBIDE] 30 mg PO Q DAY #0 10/28/09 History [LEVETIRACETA] 1,500 mg BID #0 11/04/09 History levetiracetam [Keppra] 1,000 mg PO BID #120 tab 11/16/17 Rx sertraline 25 mg PO DAILY #30 tab 11/16/17 Rx clindamycin HCl 300 mg PO QID #40 cap 07/07/19 Rx doxycycline hyclate 100 mg PO BID #20 cap 08/01/19 Rx clindamycin HCl 300 mg PO QID #40 cap 09/06/19 Rx Allergies Allergy/AdvReac Type Severity Reaction Status Date / Time morphine [MORPHINE] Allergy Severe mccann on Verified 10/21/19 21:42 skin Penicillins [PENICILLINS] AdvReac Severe vomiting Verified 10/21/19 21:42 Review of Systems Review of Systems Narrative: All other systems reviewed with the patient and are negative unless otherwise stated. Exam Vital Signs (past 8 hours): - 10/22/19 00:30 10/22/19 01:00 10/22/19 01:30 Temperature Pulse Rate 97 H 93 H 83 Respiratory Rate 17 17 15 Blood Pressure 159/88 H 148/86 H 151/88 H Pulse Oximetry 94 96 96 10/22/19 02:00 10/22/19 02:30 10/22/19 03:00 Temperature Pulse Rate 89 92 H 88 Respiratory Rate 16 15 16 Blood Pressure 151/93 H 151/83 H 145/82 H Pulse Oximetry 95 93 93 10/22/19 03:30 10/22/19 04:00 10/22/19 04:30 Temperature Pulse Rate 92 H 94 H 101 H Respiratory Rate 17 17 21 Blood Pressure 155/91 H 145/97 H 157/90 H Pulse Oximetry 94 92 93 10/22/19 05:00 10/22/19 05:30 10/22/19 06:00 Temperature Pulse Rate 84 86 82 Respiratory Rate 16 12 13 Blood Pressure 134/77 137/85 146/88 H Pulse Oximetry 93 93 93 10/22/19 07:30 Temperature 96.3 F L Pulse Rate 80 Respiratory Rate 18 Blood Pressure 133/83 Pulse Oximetry 99 Oxygen Delivery Method Room Air Oxygen Flow Rate 0 Narrative Exam Narrative: GENERAL APPEARANCE: Well developed, well nourished, young male. Shifting frequently and mildly diaphoretic. SKIN: multiple small areas of induration, erythma, and warmth including in his upper extremities, lower extremities. There are track allred in his left upper extremity with erythema and tenderness. Worst area is his left lower extremity with circumferential erythema, moderate tenderness, and possible small induration. HEENT: Normocephalic atraumatic, extraocular muscles are intact, oropharynx is clear and mucous membranes are moist, neck is supple without adenopathy NECK: Supple and symmetric. There was no thyroid enlargement, and no tenderness, or masses were felt. CHEST: Normal AP diameter and normal contour without any kyphoscoliosis. LUNGS: Auscultation of the lungs revealed no wheezes, rhonchi, or rales. CARDIOVASCULAR: There was a regular rate and rhythm without any murmurs, gallops, rubs. Peripheral pulses were 2+ and symmetric. ABDOMEN: Soft and nontender with normal bowel sounds. No ascites was noted. MUSCULOSKELETAL: There was no tenderness or effusions noted. Muscle strength and tone were normal. EXTREMITIES: No cyanosis, clubbing. There is bilateral hand edema. NEUROLOGIC: Alert and oriented x 3. Strength is +5/5 in the Upper Extremities and Lower Extremities Bilaterally. Sensation to touch was normal. Objective Labs Result Diagrams: 10/22/19 04:30 10/22/19 04:30 Labs: Laboratory Results - last 24 hr 10/21/19 10/21/19 10/21/19 22:10 22:10 22:10 WBC 9.2 RBC 4.08 L Hgb 12.4 L Hct 35.7 L MCV 87.3 MCH 30.5 MCHC 34.9 RDW 13.6 Plt Count 181 Neut % (Auto) 71.5 Lymph % (Auto) 17.6 L [place] % (Auto) 9.3 Eos % (Auto) 1.4 L Baso % (Auto) 0.2 Neut # (Auto) 6600 Lymph # (Auto) 1600 [place] # (Auto) 900 Eos # (Auto) 100 Baso # (Auto) 0 Sodium 136 L Potassium 3.0 L Chloride 97 L Carbon Dioxide 36 H BUN 15 Creatinine 1.01 Estimated GFR > 60.0 BUN/Creatinine Ratio 14.9 Glucose 109 H Lactate Calcium 8.8 Magnesium 1.7 Total Bilirubin 0.5 AST 23 ALT 14 Alkaline Phosphatase 108 Troponin I < 0.012 Total Protein 7.8 Albumin 3.7 Globulin 4.1 Albumin/Globulin Ratio 0.9 L Lipase 20 L Procalcitonin 0.05 Urine Color Urine Appearance Urine pH Ur Specific [place] Urine Protein Urine Glucose (UA) Urine Ketones Urine Occult Blood Urine Nitrate Urine Bilirubin Urine Urobilinogen Ur Leukocyte Esterase Urine RBC Urine WBC Urine Bacteria Ur Culture Indicated? Micro UA Comment COVID-19 10/21/19 10/22/19 10/22/19 22:10 01:07 04:30 WBC 9.6 RBC 4.09 L Hgb 12.4 L Hct 35.8 L MCV 87.5 MCH 30.2 MCHC 34.5 RDW 13.3 Plt Count 163 Neut % (Auto) 75.1 H Lymph % (Auto) 15.0 L [place] % (Auto) 7.8 Eos % (Auto) 1.6 L Baso % (Auto) 0.5 Neut # (Auto) 7200 H Lymph # (Auto) 1400 [place] # (Auto) 800 Eos # (Auto) 200 Baso # (Auto) 0 Sodium Potassium Chloride Carbon Dioxide BUN Creatinine Estimated GFR BUN/Creatinine Ratio Glucose Lactate 0.9 Calcium Magnesium Total Bilirubin AST ALT Alkaline Phosphatase Troponin I Total Protein Albumin Globulin Albumin/Globulin Ratio Lipase Procalcitonin Urine Color Yellow Urine Appearance Clear Urine pH 6.0 Ur Specific [place] 1.015 Urine Protein Negative Urine Glucose (UA) Negative Urine Ketones Negative Urine Occult Blood Negative Urine Nitrate Negative Urine Bilirubin Negative Urine Urobilinogen 0.2 Ur Leukocyte Esterase Negative Urine RBC None seen Urine WBC None seen Urine Bacteria None seen Ur Culture Indicated? Cult not indicated Micro UA Comment Microscopic normal COVID-19 10/22/19 10/22/19 04:30 04:47 WBC RBC Hgb Hct MCV MCH MCHC RDW Plt Count Neut % (Auto) Lymph % (Auto) [place] % (Auto) Eos % (Auto) Baso % (Auto) Neut # (Auto) Lymph # (Auto) [place] # (Auto) Eos # (Auto) Baso # (Auto) Sodium 134 L Potassium 3.8 Chloride 99 Carbon Dioxide 33 H BUN 13 Creatinine 0.79 Estimated GFR > 60.0 BUN/Creatinine Ratio 16.5 Glucose 120 H Lactate Calcium 8.4 Magnesium Total Bilirubin 0.9 AST 25 ALT 13 Alkaline Phosphatase 109 Troponin I Total Protein 7.2 Albumin 3.3 L Globulin 3.9 Albumin/Globulin Ratio 0.8 L Lipase Procalcitonin Urine Color Urine Appearance Urine pH Ur Specific [place] Urine Protein Urine Glucose (UA) Urine Ketones Urine Occult Blood Urine Nitrate Urine Bilirubin Urine Urobilinogen Ur Leukocyte Esterase Urine RBC Urine WBC Urine Bacteria Ur Culture Indicated? Micro UA Comment COVID-19 PCR Negative Assessment & Plan Assessment & Plan narrative: Amish Marc With a past medical history of epilepsy and hypertension who presented with multiple skin abscesses. He failed outpatient treatment with doxycycline and will be admitted for further management. 1. Multiple injection site skin and soft tissue infections/possible abscesses, acute, present on admission -patient with multiple injection site reactions and possible abscesses throughout. He does not have a procalcitonin elevation. Blood cultures are currently pending. Some concern for myositis or a large abscess in his left lower extremity which is the largest area of erythema and appears the most t carin. Will obtain an MRI for definitive imaging, this may also further elaborate if there is hematogenous spread given the multiple abscesses. -will continue broad therapy of meropenem and vancomycin pending blood cultures. If there appears to be a drainable collection will consult surgery. -depending on blood cultures there may be more concern for hematogenous spread and concern for endocarditis although he has no systemic signs of infection including fever or areas of infection other than at previous injection sites. -continue tylenol and toradol for pain control. Start methadone as noted below. Try and avoid additional opiate pain medications. -will send hepatitis panel and HIV testing 2. Heroin withdrawal, acute, present on admission -will start methadone 20 mg b.i.d. starting today -patient reports daily heroin use, using multiple bags 3. 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 Normocytic anemia, unclear chronicity, present on admission -unclear chronicity, no signs or symptoms of active bleeding. -will continue to follow. 5. HTN, chronic -patient reports taking medications for high blood pressure. Currently it only appears as if he has Lasix prescribed. His blood pressure is mildly elevated but this may be secondary to pain. Will manage pain and hold any additional agents given concern for severe infection. 6. Epilepsy, chronic -unclear Keppra dosing as an outpatient per patient but will continue at 1000 mg b.i.d. for nowl COVID-19 status: Negative Code: Full Dispo: Admitted under inpatient status as his stay is expected to exceed 2 midn ights.
--- NOTE | 2019-10-22 08:53 | DI.MRI.S_ITS ---
PROCEDURE: MR LOWER LEG LT WO CON COMPARISON: None. INDICATIONS: evaluation of possible abscess, myositis LLE hx IV drug use Technique: Multiplanar and multisequence MR images of left lower leg were obtained without IV contrast infusion. FINDINGS: Image quality: Diagnostic. Significant patient motion is noted. Bones and joints: There is no marrow edema. No fracture or dislocation. No bony erosive changes or cortical destruction. No periosteal reaction. No suspicious intraosseous lesion is seen. Soft tissues: Significant soft tissue swelling and edema throughout lower leg is seen particularly over medial and posterior aspect of lower leg extending to around the ankle joint. No discrete drainable fluid collection is seen. There is mild edema involving medial head of gastrocnemius muscle near musculotendinous junction suggestive of mild mild ascites. No intramuscular fluid collection. No other area of muscle signal abnormality. IMPRESSION: 1. Extensive cellulitis throughout right lower leg particularly along posterior medial aspect extending to ankle level. No discrete drainable abscess collection is identified. 2. Suggestion of low-grade mild situs involving superficial portion of the medial head gastrocnemius muscle. No other area of muscle signal abnormality. 3. No evidence of osteomyelitis. Dictated by: Nemesio Gray M.D. on 10/22/2019 at 11:41 Approved by: Nemesio Gray M.D. on 10/22/2019 at 11:45
[2019-10-22] MEDS: MEROPENEM 1 GM/50 ML PIGGYBACK IV ×2 (09:17→17:42)
[2019-10-22] MEDS: METHADONE 10 MG TABLET 20 MG PO ×2 (09:56→21:39)
[2019-10-22] MEDS: HEPARIN 5,000 UNIT/ML VIAL 5000 UNIT SUBCUT ×2 (09:58→21:38)
--- NOTE | 2019-10-22 10:06 | PC.NURSE ---
Day shift: Due to Pt's sores and cellulitis BLE's SCD's d/c'd per Dr Kim.
--- NOTE | 2019-10-22 10:36 | PC.NURSE ---
Day shift: Pt off unit for MRI at approx 1036.
[2019-10-22] MEDS: levETIRAcetam 250 MG TABLET 1000 MG PO ×2 (10:57→21:39)
--- NOTE | 2019-10-22 10:57 | PC.NURSE ---
Day shift: Pt back on AC unit at approx 1100.
[2019-10-22] MEDS: VANCOMYCIN 1,500 MG/300 ML FROZ.PIGGY 200 MG IV ×2 (14:10→21:38)
--- NOTE | 2019-10-22 15:45 | CM.SWNOTE ---
WEIGHT CHECKER Note WEIGHT CHECKER consult request received for this 39 yo male, resident of [place]. Patient presents w/multiple skin abscesses, active and daily user of heroin, meth, alcohol and marijuana. Patient states to staff and providers that he is interested in detox and treatment for poly substance abuse. Patient discussed in multidisciplinary rounds. Dr Kim indicates patient will require at least 3 days of IV abx and he is concerned that patient could have a blood infection and require transfer. For know, patient being treated here and monitored for s/sx of w/d, currently on Vanco for infection and Methadone for opioid w/d. This WEIGHT CHECKER met w/patient after multidisciplinary rounds, introduced role. Patient kept his eyes closed although was cooperative w/questions and calm. Patient states he has been to many treatment facilities, the last one was in [place], he was there for 2 days. Patient understands he will need a MADELAINE assessment before treatment, he has completed this process before. Patient agreeable to this WEIGHT CHECKER placing call to [facility] in [place] to arrange this on his behalf, with the intention he could complete MADELAINE assessment before DC . Patient admits to daily heroin and meth use. Patient unable to continue interview, lethargic and groggy, drifting off. Placed call to [facility] P#[phone], spoke to Berenice. She coordinated a bedside MADELAINE assessment between patient and Kemal Almendarez for Saturday at 1030. Tanesha has WEIGHT CHECKER team desk number for additional coordination or change in plans. Following closely for additional assessment and coordination of safe dispo on patient's behalf. KAREN Edwards
[2019-10-22] MEDS: ONDANSETRON 4 MG/2 ML INJ IV (15:53)
[2019-10-22] MEDS: ACETAMINOPHEN 325 MG TABLET 650 MG PO (15:53)
[2019-10-23] VITALS (12 sets, daily range): BP systolic 144–163; BP diastolic 79–103; PULSE 75–87; RESP 14–16; TEMP 36.1–36.9; O2SAT 97–100
[2019-10-23] MEDS: MEROPENEM 1 GM/50 ML PIGGYBACK IV ×3 (01:42→17:36)
[2019-10-23] MEDS: SODIUM CHLORIDE 0.9% 250 ML 21 ML IV (01:45)
[2019-10-23 03:38] LABS: Hepatitis B Core Antibody Positive (Negative)
[2019-10-23] MEDS: VANCOMYCIN 1,500 MG/300 ML FROZ.PIGGY 200 MG IV ×2 (05:01→13:44)
[2019-10-23 05:31] LABS: Add Manual Diff / Slide Review NO; Basophils Absolute Auto 0 /uL (0-100); Basophils Percent Auto 0.4 % (0-2); Eosinophils Absolute Auto 100 /uL (0-450); Eosinophils Percent Auto 1.1 % (2-4); Hematocrit 40.8 % (41-53); Hemoglobin 14.2 g/dL (13.5-17.5); Lymphocytes Absolute Auto 1600 /uL (1100-4500); Lymphocytes Percent Auto 19.5 % (25-40); Mean Corpuscular HGB Conc 34.8 % (30-36); Mean Corpuscular Hemoglobin 30.3 PG (26-34); Monocytes Absolute Auto 500 /uL (0-900); Monocytes Percent Auto 6.4 % (3-14); Neutrophils Absolute Auto 5800 /uL (1500-7000); Neutrophils Percent Auto 72.6 % (50-75); Platelet Count 191 X10^3/uL (150-400); Red Blood Cell Count 4.69 X10^6/uL (4.5-5.9)
[2019-10-23 05:43] LABS: Alanine Aminotransferase 15 IU/L (<50); Albumin 3.8 g/dL (3.5-5.0); Albumin Globulin Ratio 0.8 (1.0-2.8); Alkaline Phosphatase 129 U/L (38-126); Aspartate Aminotransferase 25 IU/L (17-59); BUN Creatinine Ratio 10.3 (6-22); Bilirubin Total 0.8 mg/dL (0.2-1.3); Bilirubin Unconjugated 0.7 mg/dL (0.0-1.1); Blood Urea Nitrogen 8 mg/dL (9-20); Calcium 9.4 mg/dL (8.4-10.2); Carbon Dioxide 30 mmol/L (22-32); Chloride 101 mmol/L (98-107); Estimated Glomerular Filt Rate > 60.0 mL/min (>60); Globulin 4.7 g/dL (1.7-4.1); Glucose 109 mg/dL (70-100); HEMOLYSIS < 15 (0-50); Magnesium 1.6 mg/dL (1.6-2.3); Potassium 3.7 mmol/L (3.4-5.1); Sodium 135 mmol/L (137-145); Total Protein 8.5 g/dL (6.3-8.2)
[2019-10-23] MEDS: KETOROLAC 10 MG TABLET PO ×2 (06:04→19:36)
[2019-10-23] MEDS: diphenhydrAMINE 25 MG TABLET 50 MG PO ×3 (06:36→19:37)
--- NOTE | 2019-10-23 06:40 | PC.NURSE ---
Pt. C/O anxiety states I'm having some withdrawals. Tossing & turning in bed, almost pulled out his Midline. Coordinator & I checked the placement & noted brisk blood return. Dressing to Midline changed with sterile aseptic technique. C/O pain medicated with 10 mg. of Toradol PO. Also requested Benadryl to help him relax & sleep. Dr. Song notified & received an order for 50 mg. of Benadryl PO Q6hrs. PRN. Order implemented will cont. POC & monitor.
[2019-10-23] MEDS: SODIUM CHLORIDE 0.9% FLUSH 10 ML IV ×3 (07:29→20:29)
[2019-10-23 07:48] LABS: Hepatitis B Surface Antigen NEGATIVE s/c (NEGATIVE)
[2019-10-23 08:01] LABS: HIV 1 & 2 Ab/Ag 4th Gen Combo NEGATIVE (NEGATIVE); Hep C Virus Ab w/Reflex Quant REACTIVE s/c (NEGATIVE)
--- NOTE | 2019-10-23 09:22 | PM.PN.1 ---
Subjective Subjective Date Patient Seen: 10/23/19 Time Patient Seen: 09:22 Interval history: Amish Marc With a past medical history of epilepsy, IVDU, and hypertension who presented with multiple sites of cellulitis corresponding to prior IV injection sites. Overnight he complains of feeling hot and having joint aches and pains as well as generalized malaise. He is quite diaphoretic this morning. He was started on methadone for heroin withdrawal. He had not yet received his morning dose. HIV testing was negative. Hep C Ab positive with reflex quant testing pending. Hep B core Ab positive with negative surface Ag. Exam Vital Signs (past 8 hours): - 10/23/19 03:00 10/23/19 03:08 10/23/19 08:44 Temperature 97.0 F L 98.1 F Pulse Rate 77 86 Respiratory Rate 16 14 Blood Pressure 144/79 H 151/90 H Pulse Oximetry 99 99 98 Oxygen Delivery Method Room Air Oxygen Flow Rate 0 Narrative Exam Narrative: GENERAL APPEARANCE: Well developed, well nourished, young male. Shifting frequently and diaphoretic, warm. SKIN: multiple small areas of induration, erythma, and warmth including in his upper extremities, lower extremities. There are track allred in his left upper extremity with erythema and tenderness. Worst area yesterday in his LLE has markedly improved with minimal erythema. HEENT: Normocephalic atraumatic, extraocular muscles are intact, oropharynx is clear and mucous membranes are moist, neck is supple without adenopathy NECK: Supple and symmetric. There was no thyroid enlargement, and no tenderness, or masses were felt. CHEST: Normal AP diameter and normal contour without any kyphoscoliosis. LUNGS: Auscultation of the lungs revealed no wheezes, rhonchi, or rales. CARDIOVASCULAR: There was a regular rate and rhythm without any murmurs, gallops, rubs. Peripheral pulses were 2+ and symmetric. ABDOMEN: Soft and nontender with normal bowel sounds. No ascites was noted. MUSCULOSKELETAL: There was no tenderness or effusions noted. Muscle strength and tone were normal. EXTREMITIES: No cyanosis, clubbing. There is bilateral hand edema. NEUROLOGIC: Alert and oriented x 3. Strength is +5/5 in the Upper Extremities and Lower Extremities Bilaterally. Sensation to touch was normal. Objective Labs Result Diagrams: 10/23/19 05:13 10/23/19 05:13 Labs: Laboratory Results - last 24 hr 10/21/19 10/23/19 10/23/19 22:10 05:13 05:13 WBC 8.0 RBC 4.69 Hgb 14.2 Hct 40.8 L MCV 87.0 MCH 30.3 MCHC 34.8 RDW 13.0 Plt Count 191 Neut % (Auto) 72.6 Lymph % (Auto) 19.5 L [place] % (Auto) 6.4 Eos % (Auto) 1.1 L Baso % (Auto) 0.4 Neut # (Auto) 5800 Lymph # (Auto) 1600 [place] # (Auto) 500 Eos # (Auto) 100 Baso # (Auto) 0 Sodium 135 L Potassium 3.7 Chloride 101 Carbon Dioxide 30 BUN 8 L Creatinine 0.78 Estimated GFR > 60.0 BUN/Creatinine Ratio 10.3 Glucose 109 H Calcium 9.4 Magnesium 1.6 Total Bilirubin 0.8 Conjugated Bilirubin 0.0 Unconjugated Bilirubin 0.7 AST 25 ALT 15 Alkaline Phosphatase 129 H Total Protein 8.5 H Albumin 3.8 Globulin 4.7 H Albumin/Globulin Ratio 0.8 L Hep Bs Antigen Hep B Core Total Ab Positive A Hepatitis C Antibody HIV 1&2 Ab/P24 Ag 4thGn 10/23/19 05:13 WBC RBC Hgb Hct MCV MCH MCHC RDW Plt Count Neut % (Auto) Lymph % (Auto) [place] % (Auto) Eos % (Auto) Baso % (Auto) Neut # (Auto) Lymph # (Auto) [place] # (Auto) Eos # (Auto) Baso # (Auto) Sodium Potassium Chloride Carbon Dioxide BUN Creatinine Estimated GFR BUN/Creatinine Ratio Glucose Calcium Magnesium Total Bilirubin Conjugated Bilirubin Unconjugated Bilirubin AST ALT Alkaline Phosphatase Total Protein Albumin Globulin Albumin/Globulin Ratio Hep Bs Antigen Negative Hep B Core Total Ab Hepatitis C Antibody Reactive H HIV 1&2 Ab/P24 Ag 4thGn Negative Assessment & Plan Assessment & Plan narrative: Amish Marc With a past medical history of epilepsy and hypertension who presented with multiple skin abscesses. He failed outpatient treatment with doxycycline and will be admitted for further management. 1. Multiple injection site skin and soft tissue infections, both cellulitis and myositis, acute, present on admission, active. -patient with multiple injection site reactions and possible abscesses throughout. He does not have a procalcitonin elevation. Blood cultures are currently pending. MRI of worst area on admission showed possible small area of myositits as well but no osteomyelitis and predominantly cellulitic changes. -will continue broad therapy of meropenem and vancomycin pending blood cultures. No apparent drainable collections on CT abdominal imaging or MRI of LLE. -depending on blood cultures there may be more concern for hematogenous spread and concern for endocarditis although he has no systemic signs of infection including fever or areas of infection other than at previous injection sites. -continue tylenol and toradol for pain control. Started methadone shortly after admission, continue 20 mg BID. Try and avoid additional opiate pain medications. -hep C ab reactive, pending quantitative testing -HepB core Ab positive, Surface antigen negative, likely previous infection. Surface Ab pending. 2. Heroin withdrawal, acute, present on admission -continue methadone 20 mg. He remains diaphoretic and uncomfortable today but this was prior to methadone dosing. May need dosing adjustments. -patient reports daily heroin use, using multiple bags. 3. 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 Normocytic anemia, unclear chronicity, present on admission -unclear chronicity, no signs or symptoms of active bleeding. -will continue to follow. 5. HTN, chronic -patient reports taking medications for high blood pressure. Currently it only appears as if he has Lasix prescribed. His blood pressure is mildly elevated but this may be secondary to pain. Will manage pain and withdrawal and hold any additional agents given concern for severe infection. 6. Epilepsy, chronic -unclear Keppra dosing as an outpatient per patient (records state ? 1500 mg BID) but will continue at 1000 mg b.i.d. for now. 7. History of Hep B infection 8. Hepatitis C, unclear chronicity COVID-19 status: Negative Code: Full Dispo: Admitted under inpatient status, depending on response to IV antibiotics may be able to discharge in the next few days.
[2019-10-23] MEDS: METHADONE 10 MG TABLET 20 MG PO ×2 (09:28→20:20)
[2019-10-23] MEDS: HEPARIN 5,000 UNIT/ML VIAL 5000 UNIT SUBCUT ×2 (09:29→20:22)
[2019-10-23] MEDS: levETIRAcetam 250 MG TABLET 1000 MG PO ×2 (09:35→20:26)
--- NOTE | 2019-10-23 09:58 | PC.NURSE ---
Day shift: Pt remains A&Ox3. Cooperative with care. Has been tossing and turning in bed. Midline IV remains patent. Took PO meds this AM with no difficulty. Per rounding report Pt will meet w/ chemical dependency person tomorrow and possible d/c to rehab facility. VS ok with slight increease in BP. Dr Kim aware. WBC's remain WNL. Pt also afebrile w/ temp 98.1. Pt has been diaphoretic though. aware of this as well. Improvent noted in LLE and Pt's left hand in term of the cellulitis. Call light in reach. Pt uses urinal w/ good output.
--- NOTE | 2019-10-23 10:12 | CM.DPC ---
DCP Inpt CD tx planning Per MD, pt's cellulitis seems to be improved but still waiting pending cultures to determine if pt may need a few more days of IV-Abx prior to d/c and likely ready for d/c Sun at the very earliest. Pt having some withdrawal symptoms and RN monitoring. LAMAR received a call from Tanesha at [facility] [phone] who confirms she will complete bedside assessment with pt tomorrow 10/24/19 at 1030 and gathered additional information on pt. Tanesha plans to call [facility] ([facility]) Inpt tx facility today towards creating a plan for pt to be admitted directly to them from the hospital but they do not accept weekend admits but will confirm they have openings and will work to coordinate acceptance when medically stable for possibly Saturday pending cultures and IV-Abx needs. Plan: LAMAR to follow closely tomorrow after Tanesha at [facility] completes bedside MADELAINE assessment towards getting pt into Inpt CD tx at d/c. KAREN Aldridge
[2019-10-23] MEDS: NICOTINE 14 PATCH 14 MG TOP (12:58)
[2019-10-23 13:24] LABS: Vancomycin Trough 18.9 ug/mL (10-20)
[2019-10-23] MEDS: ONDANSETRON 4 MG/2 ML INJ IV (16:22)
[2019-10-23] MEDS: SODIUM CHLORIDE 0.9% 500 ML 21 ML IV (17:51)
[2019-10-23] MEDS: ACETAMINOPHEN 325 MG TABLET 650 MG PO (19:37)
--- NOTE | 2019-10-23 19:48 | PC.NURSE ---
Pt is able to nod off, but is restless and rates pain 8/10. He has intense episodes of diaphoresis and nausea with no emesis. He has eaten one sandwich and a bag of chips in bites over last 6 hours. He stated he drank 2 fifths of vodka 1.5 to 2 d ago. He says he has a high tolerance to all drugs incl EtOH.
[2019-10-23] MEDS: VANCOMYCIN 1,250 MG in SODIUM CHLORIDE 0.9% 250 ML IV (21:45)
--- NOTE | 2019-10-23 22:54 | PC.NURSE ---
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 Showed to nurse and disposed of glove.
[2019-10-24] MEDS: diphenhydrAMINE 25 MG TABLET 50 MG PO ×2 (01:19→08:13)
[2019-10-24] MEDS: KETOROLAC 10 MG TABLET PO ×2 (01:19→08:13)
[2019-10-24] MEDS: MEROPENEM 1 GM/50 ML PIGGYBACK IV ×2 (01:20→10:43)
[2019-10-24] MEDS: SODIUM CHLORIDE 0.9% FLUSH 10 ML IV ×2 (01:20→08:13)
[2019-10-24 05:30] VITALS: BP 142/80; PULSE 72; RESP 16; TEMP 36.7; O2SAT 97
[2019-10-24 06:01] LABS: Hepatitis B Surf Ab Qualitativ Reactive (.)
[2019-10-24] MEDS: VANCOMYCIN 1,250 MG in SODIUM CHLORIDE 0.9% 250 ML IV (06:26)
[2019-10-24] MEDS: ACETAMINOPHEN 325 MG TABLET 650 MG PO (08:13)
[2019-10-24] MEDS: METHADONE 10 MG TABLET 20 MG PO (08:14)
[2019-10-24] MEDS: HEPARIN 5,000 UNIT/ML VIAL 5000 UNIT SUBCUT (08:14)
[2019-10-24] MEDS: NICOTINE 14 PATCH 14 MG TOP (08:14)
[2019-10-24] MEDS: levETIRAcetam 250 MG TABLET 1000 MG PO (08:17)
[2019-10-24 08:40] LABS: Add Manual Diff / Slide Review NO; Basophils Absolute Auto 0 /uL (0-100); Basophils Percent Auto 0.3 % (0-2); Eosinophils Absolute Auto 200 /uL (0-450); Eosinophils Percent Auto 2.6 % (2-4); Hematocrit 37.7 % (41-53); Hemoglobin 12.8 g/dL (13.5-17.5); Lymphocytes Absolute Auto 1900 /uL (1100-4500); Lymphocytes Percent Auto 25.1 % (25-40); Mean Corpuscular Hemoglobin 29.8 PG (26-34); Mean Corpuscular Volume 87.7 fL (80-100); Monocytes Absolute Auto 500 /uL (0-900); Neutrophils Absolute Auto 5000 /uL (1500-7000); Platelet Count 208 X10^3/uL (150-400); Red Cell Distribution Width 13.6 % (11.6-14.8); White Blood Cell Count 7.6 X10^3/uL (4.5-11.0)
--- NOTE | 2019-10-24 10:18 | CM.DPC ---
Addendum entered by KAREN Aldridge 10/24/19 13:18: ADD: Imaging completed on pt's hand and he was still adamant that he would like to leave the hospital and MD agreeable to write d/c orders and RN discussed discharge instructions and new medication and walked pt down to the exit of the hospital. LAMAR called Tanesha with [facility] ([phone]) and updated on pt d/c/AMA from the hospital and she will follow up with pt in the outpt setting. BF Original Note: DCP Cont: Per MD, pt's left hand still quite swollen and would like to get imaging of his hand to confirm no surgical intervention needed and cultures still pending to determine how long IV-Abx needed. SW updated MD, pt, and RN bedside during rounding that Tanesha from [facility] will be bedside at 1030 today to complete MADELAINE assessment to get pt right into Inpt CD tx and pt agreeable with MADELAINE assessment but states once he discharges he would like to go home first to take care of some things and then go to Inpt tx. SW encouraged him to discuss this with Tanesha when she arrives. Pt states that he is feeling like leaving AMA today as he cannot imagine staying in the hospital for another night. Pt's withdrawals higher today and pt more agitated. Pt willing to stay currently for MADELAINE assessment and imaging and then further discussion with MD towards determining if pt will remain in the hospital for medical care or leave AMA. Plan: SW to follow closely after MADELAINE assessment this morning and imaging to determine if pt can remain in the hospital for medical care until stable for discharge vs AMA. KAREN Aldridge
[2019-10-24 11:00] VITALS: BP 153/117; PULSE 88; RESP 18; TEMP 36.6; O2SAT 97
--- NOTE | 2019-10-24 11:33 | DI.RAD.S_ITS ---
PROCEDURE: XR HAND LT MIN 3V INDICATIONS: swelling TECHNIQUE: 3 views of the hand(s) acquired. COMPARISON: [facility], CR, XR HAND LT MIN 3V, 08/01/2019, 18:13. FINDINGS: Bones: No fractures or dislocations. Carpal bones are normally aligned. No suspicious bony lesions. Soft tissues: No suspicious soft tissue calcifications. Soft tissue swelling is noted. No soft tissue gas or radiopaque foreign body. IMPRESSION: Soft tissue swelling. No radiopaque foreign body. No evidence acute bony abnormality of the left hand Dictated by: Kervin Yanez M.D. on 10/24/2019 at 11:05 Approved by: Kervin Yanez M.D. on 10/24/2019 at 11:06
--- NOTE | 2019-10-24 12:17 | PC.NURSE ---
Discharge: Patient was quite anxious, nearly left AMA, but ended up staying long enough for hand x-ray to be completed and for Dr Dey to formally discharge him. Reviewed d/c instructions thoroughly. Patient aware that he needs to f/u with PCP next week, advised sooner is better than later. Instructed to return to hospital with any worsening of symptoms, or new onset symptoms. He knows that there is a script for Augmentin at his pharmacy- advised to take as directed and for full course. Patient verbalized understanding of all d/c info and stated no further questions. All belongings collected and sent with patient. Ambulated out accompanied by this lyric writer.
[2019-10-24 13:48] LABS: Alanine Aminotransferase 13 IU/L (<50); Albumin 3.4 g/dL (3.5-5.0); Albumin Globulin Ratio 0.9 (1.0-2.8); Alkaline Phosphatase 104 U/L (38-126); Aspartate Aminotransferase 23 IU/L (17-59); BUN Creatinine Ratio 16.9 (6-22); Bilirubin Total 0.3 mg/dL (0.2-1.3); Bilirubin Unconjugated 0.1 mg/dL (0.0-1.1); Blood Urea Nitrogen 15 mg/dL (9-20); Calcium 8.9 mg/dL (8.4-10.2); Carbon Dioxide 27 mmol/L (22-32); Chloride 102 mmol/L (98-107); Estimated Glomerular Filt Rate > 60.0 mL/min (>60); Globulin 3.9 g/dL (1.7-4.1); Glucose 108 mg/dL (70-100); HEMOLYSIS < 15 (0-50); Magnesium 1.8 mg/dL (1.6-2.3); Potassium 3.6 mmol/L (3.4-5.1); Sodium 137 mmol/L (137-145); Total Protein 7.3 g/dL (6.3-8.2)
--- NOTE | 2019-10-25 15:58 | P.DS_ITS ---
History of Present Illness History of Present Illness Date Patient Seen: 10/24/19 Chief complaint: Multiple wounds Narrative: Amish Marc With a past medical history of epilepsy and hyper tension who presented with multiple skin abscesses. He went to an urgent care and received a prescription for doxycycline last week, but these have been ineffective in patient presented to the ER with worsening pain at the sites. He denies recent fevers, chills. He denies any chest pain or palpitations, nausea, vomiting, abdominal pain other than from a lesion that is present on both sides. He denies any diarrhea or constipation. He has not had any shortness of breath or dyspnea on exertion. He states that he uses heroin daily, smokes methamphetamine, occasionally uses alcohol and marijuana. He reports that all of his abscesses are at sites of previous injections, including his hands, legs, arms, and abdomen. He denies lesions in any place that he did not inject. His last heroin use was yesterday morning. In the emergency room, his vital signs are unremarkable. Initial laboratory findings did not show any leukocytosis with a WBC count of 9.6. He has a mild anemia with a hemoglobin of 12.4, but no other abnormal findings on his CBC. Chemistries showed a sodium of 134 and a CO2 of 33. Glucose was 120. Troponin was negative. Procalcitonin was negative. Urinalysis was negative for infection. COVID-19 PCR was negative. He was started on imipenem and vancomycin in the emergency room. He was admitted to Medicine for further management of multiple injection site abscesses. Discharge Providers Provider Date of admission: 10/22/19 06:55 Discharge Date: 10/24/19 Consults: 10/22/19 08:[address] [facility] - Training Professional Routine Comment: IV drug use Discharge provider: Marley Dey MD Summary Hospital Course Discharge Diagnosis: 1. Multiple skin abscesses/ 2. Polysubstance abuse 3. Heroin withdrawal 4. Seizure disorder 5. Hypertension Hospital Course: Patient was admitted to the hospital for treatment of multiple skin abscesses. The patient was placed on antibiotics with some improvement. The patient developed acute withdrawal from opiates. He was placed on methadone with improvement of symptomatology the patient had significant swelling of bilateral hands. The right hand swelling improved however the left hand swelling persisted. It an x-ray of the left hand was negative. The patient became agitated. He insisted upon leaving and was actually attempting to leave the hospital Against Medical Advice. In lieu of that patient was discharged home with plans to follow-up with urgent care as an outpatient. Exam Vital Signs (past 8 hours): Oxygen Delivery Method Room Air Oxygen Flow Rate 0 Narrative Exam Narrative: Chronically ill-appearing male Lungs: Clear to auscultation Cardiac exam: Regular rate and rhythm normal S1-S2 Abdomen: Soft nontender non- Extremities: Left hand swollen, no palpable masses no fluctuant lesions the right neck also had a palpable area no fluctuance noted id no erythema, and rashes noted on the skin Objective Labs Result Diagrams: 10/24/19 08:20 10/24/19 08:20 Discharge Assessment & Plan Assessment and Plan Assessment: 1. Multiple skin abscesses 2. Polysubstance abuse 3. Heroin withdrawal 4. Hypertension 5. Seizure disorder Plan of Treatment: Follow-up with PCP at urgent care as directed Continue medications as prescribed Discharge Plan Discharge Plan Patient Disposition: Home Discharge comment: Follow up with PCP next week. Return to the ED for increased swelling, pain, or redness Discharge orders & Medications 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: New amoxicillin-pot clavulanate [Augmentin] 875-125 mg tablet 1 tab PO BID Qty: 14 RF: 0 Continued LISINOPRIL (Zestril / Prinivil) 10 mg Q DAY Qty: 0 RF: 0 [ISOSORBIDE] 30 mg PO Q DAY Qty: 0 RF: 0 FUROSEMIDE (Lasix) 20 mg Q DAY Qty: 0 RF: 0 [LEVETIRACETA] 1,500 mg BID Qty: 0 RF: 0 levetiracetam [Keppra] 500 mg tablet 1,000 mg PO BID Qty: 120 RF: 0 sertraline 25 mg tablet 25 mg PO DAILY Qty: 30 RF: 0 Diet/Activity/Treatments Diet: Diet as Tolerated Skin/Wound/Dressing Care Report to your healthcare provider any signs of infection, such as:: chills, fever, night sweats, increased pain, unusual drainage and unusual redness Visit Report/Discharge Packet Instructions: DI for Cellulitis -- Adult, Cellulitis, DI for Opioid Use Disorder, Amoxicillin and Clavulanic Acid Visit Report Forms: Patient Portal/API, Stroke Signs & Symptoms Discharges patient from system. Discharge Date/Time: 10/24/19 12:24
[2019-10-29 20:07] LABS: HCV Genotype 1a (.); HCV LOG 10 6.645 (.)
== END 2019-10-24 12:24 | disposition home or self-care (01) | DRG 603 ==
LOC: ED 10-22 01:48 → AC 10-22 06:56
PROVIDERS: Internal Medicine; Admitting Provider Family Medicine; Emergency Provider Emergency Medicine; Referring Provider Emergency Medicine; Visit Provider Family Medicine
DX: L03.116 Cellulitis of left lower limb (principal); L03.114 Cellulitis of left upper limb; F11.23 Opioid dependence with withdrawal; L02.414 Cutaneous abscess of left upper limb; F15.10 Other stimulant abuse, uncomplicated; F10.10 Alcohol abuse, uncomplicated; F12.10 Cannabis abuse, uncomplicated; G40.909 Epilepsy, unspecified, not intractable, without status epilepticus; F17.210 Nicotine dependence, cigarettes, uncomplicated; I10 Essential (primary) hypertension; Z11.59 Encounter for screening for other viral diseases; Z86.19 Personal history of other infectious and parasitic diseases
CPT/HCPCS: 36415; 36592; 71045; 73130; 73718; 74177; 80048; 80053; 80076; 80202; 81001; 83605; 83690; 83735; 84145; 84484; 85025; 86704; 86706; 86803; 87040; 87340; 87389; 87522; 87635; 87902; 96361; 96365; 96366; 96367; 99284; 99285; J0743; J1642; J1644; J2405; Q9967

== ENCOUNTER 2020-06-24 04:36 | Emergency (ER) | payer MEDICARE, MEDICAID, SELFPAY ==
[2019-10-22 10:09] VITALS: BMI 25.6
[2020-06-24 04:46] VITALS: BP 171/102; PULSE 91; RESP 16; TEMP 36.5; O2SAT 99; BMI 23.1
[2020-06-24 05:00] VITALS: PULSE 100; O2SAT 97
--- NOTE | 2020-06-24 05:05 | ED_ITS ---
HPI - Skin/Abscess/Foreign Bdy General Chief complaint: Skin/Abscess/Foreign Body Stated complaint: red streak going up left arm Time Seen by Provider: 06/24/20 04:55 Source: patient Mode of arrival: Ambulatory Limitations: no limitations History of Present Illness HPI narrative: 40-year-old gentleman with a history of opiate and methamphetamine use disorder. Recently hospitalized for multiple abscesses and then almost a week in the hospital. From there he has almost entirely stopped injecting and is set up with [facility] and scheduled to go to inpatient services. He comes in with an abscess developing the superior portion of the left antecubital fossa with dramatic cellulitis extending up toward the axilla. He describes no fevers, chills, myalgias no neuropathic pain down the forearm and no drainage from the area. He describes no palpitations, cough, chest pain, dyspnea, vomiting or diarrhea. Related Data Home Medications Medication Instructions Recorded Confirmed FUROSEMIDE (Lasix) 20 mg Q DAY #0 10/28/09 10/22/19 LISINOPRIL (Zestril / Prinivil) 10 mg Q DAY #0 10/28/09 10/22/19 [ISOSORBIDE] 30 mg PO Q DAY #0 10/28/09 10/22/19 [LEVETIRACETA] 1,500 mg BID #0 11/04/09 10/22/19 Previous Rx's Medication Instructions Recorded levetiracetam [Keppra] 1,000 mg PO BID #120 tab 11/16/17 sertraline 25 mg PO DAILY #30 tab 11/16/17 amoxicillin-pot clavulanate 1 tab PO BID #14 tab 10/24/19 [Augmentin] clindamycin HCl 300 mg PO TID #30 cap 06/24/20 sulfamethoxazole-trimethoprim 1 tab PO BID #20 tab 06/24/20 [Bactrim DS] Allergies Allergy/AdvReac Type Severity Reaction Status Date / Time morphine [MORPHINE] Allergy Severe mccann on Verified 10/21/19 21:42 skin Penicillins [PENICILLINS] AdvReac Severe vomiting Verified 10/21/19 21:42 Review of Systems Review of Systems Narrative: Remainder of complete review of systems is otherwise unremarkable except for that included in the HPI. Patient History Medical History Epilepsy Hypertension Opioid use disorder Surgical History No pertinent past surgical history Social History Smoking Status: Current every day smoker Smoking Status: Current every day smoker tobacco type: cigarettes alcohol intake frequency: a few times a week Substance Use Type: marijuana, heroin, IV drugs and methamphetamine Exam Narrative Exam Narrative: General: Alert appropriate in no acute distress Respiratory: Able to speak in full sentences, no obvious respiratory distress Skin: No obvious rashes, warm and dry Neurologic: Grossly intact no obvious asymmetries or abnormalities Psych: appropriate insight and affect, cooperative Extremity: Left upper extremity with firmness in the superior portion of the antecubital fossa with cellulitic spread of to the almost axillary area with no axillary adenopathy. Bedside ultrasound does indicate abscess formation rather than just phlegmon at the site. Initial Vital Signs Initial Vital Signs: Vital Signs Temperature 97.7 F 06/24/20 04:46 Pulse Rate 91 H 06/24/20 04:46 Respiratory Rate 16 06/24/20 04:46 Blood Pressure 171/102 H 06/24/20 04:46 Pulse Oximetry 99 06/24/20 04:46 Procedures Abscess I/D Left upper extremity: Site: upper extremity Side (if applicable): left Local Anesthetic: lidocaine 1% Amount of anesthesia used (mL): 5 Technique: incised with #11 blade Amount of fluid expressed (mL): 5 Irrigation: Yes Course Orders Ordered: ED Orders 06/24/20 05:31 Wound Culture and Gram Stain Stat Discontinued Medications Clindamycin HCl (Clindamycin 150 Mg Capsule) 300 mg PO NOW ONE Stop: 06/24/20 05:33 Trimethoprim/Sulfamethoxazole (Trimeth/Sulfa 160/800 (Ds) Tablet) 1 tab PO NOW ONE Stop: 06/24/20 05:33 Vital Signs Vital signs: Vital Signs - 8 hr 06/24/20 04:46 Temperature 97.7 F Pulse Rate 91 H Respiratory Rate 16 Blood Pressure 171/102 H Pulse Oximetry 99 MDM - Skin/Abscess/Foreign Bdy Medical Records Attestation: I reviewed the patient's medical records. MDM Narrative Medical decision making narrative: 40-year-old gentleman who has been doing significantly better since his most recent hospitalization for multiple abscesses. His skin is dramatically improved. He states that he has been doing very little injecting however the 1 time that he did has created this abscess in the forearm. Ultrasound did confirm abscess collection. Eleven blade scalp was used to open a 1.5 cm area approximately 5 cc of purulent material returns. The area is irrigated with saline with a bit more purulence return. Wound cultures are obtain. Will place him on both clindamycin and Septra assuming this is MRSA. Importance of completing all antibiotics reviewed with patient. Importance of returning should the abscess worsen or this cellulitis worsen or he show any signs or symptoms of sepsis. He is safe for home discharge Discharge Plan Departure Patient Disposition: Home Clinical Impression: Opioid use disorder Cellulitis Qualifiers: Site of cellulitis: extremity Site of cellulitis of extremity: upper extremity Laterality: left Qualified Code(s): L03.114 - Cellulitis of left upper limb Abscess of skin or subcutaneous tissue Qualifiers: Site of cutaneous abscess: extremity Site of cutaneous abscess of extremity: upper extremity Laterality: left Qualified Code(s): L02.414 - Cutaneous abscess of left upper limb Instructions: DI for Cellulitis -- Adult, DI for Skin Abscess Activity Restrictions/Additional Instructions: Thank you for coming in today You did have a bit of an abscess forming and we did drain the pus that was in place. You have quite a bit of cellulitis spreading out from that abscess. I have given you prescriptions for both Bactrim and clindamycin. It is very important that you complete 10 days of both antibiotics. If you feel that you are getting worse please return to the ER I wish you the best in your inpatient rehab stay coming up 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: New sulfamethoxazole-trimethoprim [Bactrim DS] 800-160 mg tablet 1 tab PO BID Qty: 20 RF: 0 clindamycin HCl 300 mg capsule 300 mg PO TID Qty: 30 RF: 0 No Action LISINOPRIL (Zestril / Prinivil) 10 mg Q DAY Qty: 0 RF: 0 [ISOSORBIDE] 30 mg PO Q DAY Qty: 0 RF: 0 FUROSEMIDE (Lasix) 20 mg Q DAY Qty: 0 RF: 0 [LEVETIRACETA] 1,500 mg BID Qty: 0 RF: 0 levetiracetam [Keppra] 500 mg tablet 1,000 mg PO BID Qty: 120 RF: 0 sertraline 25 mg tablet 25 mg PO DAILY Qty: 30 RF: 0 amoxicillin-pot clavulanate [Augmentin] 875-125 mg tablet 1 tab PO BID Qty: 14 RF: 0
[2020-06-24] MEDS: LIDOCAINE 2% INJ MDV 20 ML (05:14)
[2020-06-24 05:16] VITALS: BP 149/87; PULSE 91; O2SAT 98
[2020-06-24 05:30] VITALS: PULSE 85; O2SAT 98
[2020-06-24] MEDS: CLINDAMYCIN 150 MG CAPSULE 300 MG PO (05:44)
[2020-06-24] MEDS: TRIMETH/SULFA 160/800 (DS) TABLET 1 TAB PO (05:44)
== END 2020-06-24 05:54 | disposition home or self-care (01) ==
PROVIDERS: Emergency Provider Emergency Medicine
DX: L03.114 Cellulitis of left upper limb (principal); L02.414 Cutaneous abscess of left upper limb; F11.99 Opioid use, unspecified with unspecified opioid-induced disorder
CPT/HCPCS: 10060; 87070; 87075; 87077; 87205; 99283

== ENCOUNTER 2020-07-17 00:04 | Emergency (ER) | payer MEDICARE, MEDICAID, SELFPAY ==
[2019-10-22 10:09] VITALS: BMI 25.6
--- NOTE | 2020-07-17 00:14 | ED_ITS ---
HPI - General Adult General Chief complaint: Skin/Abscess/Foreign Body Stated complaint: thinks left shoulder is infected Time Seen by Provider: 07/17/20 00:14 History of Present Illness HPI narrative: 40-year-old gentleman with opioid use disorder presents with an abscess and cellulitis developing on the left upper arm. It developed an area where he ?muscled? some heroin of last week some time. Abscess developed in he did puncture it himself with significant drainage but in the last 48 hours he is noticing increasing erythema spreading to the medial aspect of his forearm and heading toward antecubital fossa. He describes nose fevers, cough, chills. He has had no vomiting or diarrhea recently. He continues to consider rehab but notes that his mother was admitted yesterday with stroke. She has a history of heavy alcohol use disorder and this is clearly caused him to seriously reconsider treatment options for himself. Related Data Home Medications Medication Instructions Recorded Confirmed FUROSEMIDE (Lasix) 20 mg Q DAY #0 10/28/09 10/22/19 LISINOPRIL (Zestril / Prinivil) 10 mg Q DAY #0 10/28/09 10/22/19 [ISOSORBIDE] 30 mg PO Q DAY #0 10/28/09 10/22/19 [LEVETIRACETA] 1,500 mg BID #0 11/04/09 10/22/19 Previous Rx's Medication Instructions Recorded levetiracetam [Keppra] 1,000 mg PO BID #120 tab 11/16/17 sertraline 25 mg PO DAILY #30 tab 11/16/17 amoxicillin-pot clavulanate 1 tab PO BID #14 tab 10/24/19 [Augmentin] clindamycin HCl 300 mg PO TID #30 cap 06/24/20 sulfamethoxazole-trimethoprim 1 tab PO BID #20 tab 06/24/20 [Bactrim DS] clindamycin HCl 300 mg PO BID 7 Days #14 cap 07/17/20 sulfamethoxazole-trimethoprim 1 tab PO BID #14 tab 07/17/20 [Bactrim DS] Allergies Allergy/AdvReac Type Severity Reaction Status Date / Time morphine [MORPHINE] Allergy Severe mccann on Verified 10/21/19 21:42 skin Penicillins [PENICILLINS] AdvReac Severe vomiting Verified 10/21/19 21:42 Review of Systems Review of Systems Narrative: Remainder of complete review of systems is otherwise unremarkable except for that included in the HPI. Patient History Medical History Epilepsy Hypertension Opioid use disorder Surgical History No pertinent past surgical history Social History Smoking Status: Current every day smoker Smoking Status: Current every day smoker tobacco type: cigarettes alcohol intake frequency: a few times a week Substance Use Type: marijuana, heroin, IV drugs and methamphetamine Exam Narrative Exam Narrative: General: Alert appropriate in no acute distress Respiratory: Able to speak in full sentences, no obvious respiratory distress Skin: No obvious rashes, warm and dry Neurologic: Grossly intact no obvious asymmetries or abnormalities Psych: appropriate insight and affect, cooperative Extremity: There is a 4 x 4 cm area of erythema and resolving abscess outer aspect of the left upper arm with a 1 cm puncture wound centrally no continued drainage. Medial to that and heading toward the medial portion of his elbow is expanding erythema consistent with cellulitis. Bedside ultrasound does not show new fluid collection that needs to be drained, there is significant induration throughout the tissue. Initial Vital Signs Initial Vital Signs: Vital Signs Temperature 97.5 F L 07/17/20 00:18 Pulse Rate 87 07/17/20 00:18 Respiratory Rate 16 07/17/20 00:18 Blood Pressure 198/121 H 07/17/20 00:18 Pulse Oximetry 100 07/17/20 00:18 Course Orders Ordered: Discontinued Medications Ceftriaxone Sodium (Ceftriaxone 2,000 Mg Vial) 1,000 mg IM NOW ONE Stop: 07/17/20 00:18 Last Admin: 07/17/20 00:54 Dose: 1,000 mg Documented by: MERE Lidocaine HCl (Lidocaine 1% 20 Ml) 4.2 ml INJ NOW ONE Stop: 07/17/20 00:18 Last Admin: 07/17/20 00:55 Dose: 4.2 ml Documented by: MERE Vital Signs Vital signs: Vital Signs - 8 hr 07/17/20 00:18 Temperature 97.5 F L Pulse Rate 87 Respiratory Rate 16 Blood Pressure 198/121 H Pulse Oximetry 100 Medical Decision Making Medical Records Medical records reviewed: Yes I reviewed the patient's medical records. MDM Narrative Medical decision making narrative: 40-year-old gentleman with recurrent abscess and cellulitis. He does note that he does have trouble consistently taking the antibiotics. Given a dose of IM ceftriaxone to try to get a jump start on treatment for the cellulitis. At this point he is not exhibiting any signs or symptoms of sepsis. We again discussed getting in to treatment either inpatient or outpatient. He continues to think about it. He is safe for home discharge Discharge Plan Departure Patient Disposition: Home Clinical Impression: Opioid use disorder Cellulitis Qualifiers: Site of cellulitis: extremity Site of cellulitis of extremity: upper extremity Laterality: left Qualified Code(s): L03.114 - Cellulitis of left upper limb Instructions: DI for Cellulitis -- Adult Activity Restrictions/Additional Instructions: Thank you for coming in today The area on your arm does not have more pus that needs to be drained. They are still quite a bit of swelling in the tissue and the bacteria are beginning to spread down the front of your arm You half to be consistent with your antibiotics. The big white once, Bactrim need to be morning and night for a minimum of 5 days The greenish capsules, clindamycin need to be 3 times a day for a minimum of 5 days Consider setting an alarm on your phone to remind you to take the medications If things are getting worse please come back Please consider following up with [facility] for methadone or [place] [facility] [phone] for suboxone. You can get to healthy and sober. I hope you mom recovers after her stroke. 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: New clindamycin HCl 300 mg capsule 300 mg PO BID 7 Days Qty: 14 RF: 0 sulfamethoxazole-trimethoprim [Bactrim DS] 800-160 mg tablet 1 tab PO BID Qty: 14 RF: 0 No Action LISINOPRIL (Zestril / Prinivil) 10 mg Q DAY Qty: 0 RF: 0 [ISOSORBIDE] 30 mg PO Q DAY Qty: 0 RF: 0 FUROSEMIDE (Lasix) 20 mg Q DAY Qty: 0 RF: 0 [LEVETIRACETA] 1,500 mg BID Qty: 0 RF: 0 levetiracetam [Keppra] 500 mg tablet 1,000 mg PO BID Qty: 120 RF: 0 sertraline 25 mg tablet 25 mg PO DAILY Qty: 30 RF: 0 sulfamethoxazole-trimethoprim [Bactrim DS] 800-160 mg tablet 1 tab PO BID Qty: 20 RF: 0 clindamycin HCl 300 mg capsule 300 mg PO TID Qty: 30 RF: 0 amoxicillin-pot clavulanate [Augmentin] 875-125 mg tablet 1 tab PO BID Qty: 14 RF: 0
[2020-07-17 00:18] VITALS: BP 198/121; PULSE 87; RESP 16; TEMP 36.4; O2SAT 100; BMI 23.1
[2020-07-17] MEDS: cefTRIAXone 2,000 MG VIAL 1000 MG IM (00:54)
[2020-07-17] MEDS: LIDOCAINE 1% 20 ML 4.2 ML INJ (00:55)
== END 2020-07-17 01:25 | disposition home or self-care (01) ==
PROVIDERS: Emergency Provider Emergency Medicine
DX: L03.114 Cellulitis of left upper limb (principal); F11.99 Opioid use, unspecified with unspecified opioid-induced disorder
CPT/HCPCS: 96372; 99283; J0696

== ENCOUNTER 2020-10-10 20:28 | Emergency (ER) | payer MEDICARE, MEDICAID, SELFPAY ==
[2019-10-22 10:09] VITALS: BMI 25.6
[2020-10-10 20:30] VITALS: BP 178/98; PULSE 91; RESP 14; TEMP 36.6; O2SAT 99
[2020-10-10] MEDS: LIDO 1%/SOD BICARB 8.4% (10ML) 10 ML SYRINGE INJ (22:36)
[2020-10-10] MEDS: KETOROLAC 30 MG/ML VIAL IM (22:36)
[2020-10-10] MEDS: cefTRIAXone 2,000 MG VIAL 2000 MG IM (22:36)
--- NOTE | 2020-10-11 01:39 | PC.NURSE ---
As I passed the room I observed Pt stuffing supplies into backpack. in his hand was a kurin device. I told him that that was not for him and asked him to show me what was in his backpack. I observed him having some gauze ( which was given to him by Physician) in his bag but nothing more, but was unable to see completely to the bottom of the bag. Pt was annoyed that I asked to look, but was compliant. I locked the IV drawer and he preceded to leave AMA.
--- NOTE | 2020-10-11 04:25 | ED_ITS ---
HPI - Extremity Problem General Chief complaint: Extremity Problem,Nontraumatic Stated complaint: RIGHT ARM SWELLING RED ABSCESS Time Seen by Provider: 10/10/20 22:00 Source: patient Mode of arrival: Ambulatory Limitations: no limitations History of Present Illness HPI Narrative: 40-year-old gentleman with history of opioid and methamphetamine use disorder presents with bright upper extremity abscess significant pain inability to fully extend his right elbow, fevers and complaints of mid back pain. He notes that he has been consistently using heroin and currently is homeless. He attributes the midback pain to sleeping in his car. He reports fevers, generally feeling unwell, body aches and notes that the right arm abscess swelling and dysfunction has been getting worse for the last at least week. He does believe that it is related to an injection in the area about a week ago. He also notes a poorly healing wound on his right anterior vital. He describes no obvious cough, palpitations, orthopnea, abdominal pain, diarrhea, constipation, dysuria. Related Data Home Medications Medication Instructions Recorded Confirmed FUROSEMIDE (Lasix) 20 mg Q DAY #0 10/28/09 10/22/19 LISINOPRIL (Zestril / Prinivil) 10 mg Q DAY #0 10/28/09 10/22/19 [ISOSORBIDE] 30 mg PO Q DAY #0 10/28/09 10/22/19 [LEVETIRACETA] 1,500 mg BID #0 11/04/09 10/22/19 levetiracetam 500 mg tablet 1,500 mg PO BID 10/10/20 10/10/20 Previous Rx's Medication Instructions Recorded levetiracetam 500 mg tablet 1,000 mg PO BID #120 tab 11/16/17 (Keppra) sertraline 25 mg tablet 25 mg PO DAILY #30 tab 11/16/17 amoxicillin 875 mg-potassium 1 tab PO BID #14 tab 10/24/19 clavulanate 125 mg tablet (Augmentin) clindamycin HCl 300 mg capsule 300 mg PO TID #30 cap 06/24/20 sulfamethoxazole 800 1 tab PO BID #20 tab 06/24/20 mg-trimethoprim 160 mg tablet (Bactrim DS) sulfamethoxazole 800 1 tab PO BID #14 tab 07/17/20 mg-trimethoprim 160 mg tablet (Bactrim DS) cephalexin 500 mg capsule 500 mg PO TID #30 cap 10/11/20 sulfamethoxazole 800 1 tab PO BID #20 tab 10/11/20 mg-trimethoprim 160 mg tablet (Bactrim DS) Allergies Allergy/AdvReac Type Severity Reaction Status Date / Time morphine [MORPHINE] Allergy Severe mccann on Verified 10/10/20 20:34 skin Penicillins [PENICILLINS] AdvReac Severe vomiting Verified 10/10/20 20:34 Review of Systems Review of Systems Narrative: Remainder of complete review of systems is otherwise unremarkable except for that included in the HPI. Patient History Medical History Epilepsy Hypertension Opioid use disorder Surgical History No pertinent past surgical history Social History Smoking Status: Current every day smoker Smoking Status: Current every day smoker tobacco type: cigarettes alcohol intake frequency: a few times a week Substance Use Type: marijuana, heroin, IV drugs and methamphetamine Exam Narrative Exam Narrative: General: 40-year-old gentleman in some pain due to the right upper extremity swelling and pain, able to give limited history HEENT: Moist mucous membranes, normal sclera with pinpoint pupils, Neck: No JVD, supple Respiratory: Lungs with mild scattered wheeze but no rales no rhonchi. Full and symmetrical air movement Cardiac: Tachycardic but otherwise Regular rate and rhythm, no murmurs with careful auscultation, no bruits Abdomen: Soft, nontender, good bowel tones, no flank pain Skin: Multiple track allred, pale. Neurologic: Grossly neurologically intact with no obvious asymmetries or abnormalities Extremities: Right upper extremity with large abscess in the proximal forearm. Unable to fully extend the elbow with erythema and tenderness extending across the dorsum of the forearm and edema extending down into the hand. Multiple track allred both upper extremities. Right anterior vital has a 2 x 1 cm ulcer that does not appear to be infected. Spine: Tenderness to palpation from T10-11 and 12 without obvious skin changes Psych: Appears intoxicated, distracted and somewhat agitated Initial Vital Signs Initial Vital Signs: Vital Signs Temperature 97.8 F 10/10/20 20:30 Pulse Rate 91 H 10/10/20 20:30 Respiratory Rate 14 10/10/20 20:30 Blood Pressure 178/98 H 10/10/20 20:30 Pulse Oximetry 99 10/10/20 20:30 Procedures Abscess I/D Right forearm: Site: upper extremity Side (if applicable): right Local Anesthetic: lidocaine 1% and with bicarb Amount of anesthesia used (mL): 10 Technique: incised with #11 blade Amount of fluid expressed (mL): 20 Irrigation: Yes Packing used?: plain Complications: other (Drainage was limited with significant swelling in the forearm and concern for intra-articular involvement as well.) Course Orders Ordered: Discontinued Medications Ceftriaxone Sodium (Ceftriaxone 2,000 Mg Vial) 2,000 mg IM NOW ONE Stop: 10/10/20 22:12 Last Admin: 10/10/20 22:36 Dose: 2,000 mg Documented by: SURJIT Ketorolac Tromethamine (Ketorolac 30 Mg/Ml Vial) 30 mg IM NOW ONE Stop: 10/10/20 22:12 Last Admin: 10/10/20 22:36 Dose: 30 mg Documented by: SURJIT Lidocaine/Sodium Bicarbonate (Lido 1%/Sod Bicarb 8.4% (10ml) 10 Ml Syringe) 10 ml INJ NOW ONE Stop: 10/10/20 22:12 Last Admin: 10/10/20 22:36 Dose: 10 ml Documented by: SURJIT Vital Signs Vital signs: Vital Signs - 8 hr 10/10/20 20:30 Temperature 97.8 F Pulse Rate 91 H Respiratory Rate 14 Blood Pressure 178/98 H Pulse Oximetry 99 MDM - Extremity (Nontraumatic) MDM Narrative Medical decision making narrative: 40-year-old gentleman with severe opioid use disorder large abscess of the right forearm that appears to have started in the right antecubital fossa. 20 cc of fluid, purulence, returned however and still concerned that there is significant purulence if not overt necrotic tissue present. Also concern for intra-articular involvement. Similarly, with T10-11 12 point tenderness, IV drug use and fevers and concern for possibility of an epidural abscess. All of these findings are reviewed with patient we strongly recommended hospital admission with IV antibiotics and further imaging studies of his spine as well as orthopedic consultation for surgical intervention in I and D of the elbow and right arm. Patient was adamant that he was not interested in staying. He needed to be redirected at least 4 times during his emergency room stay to wait for antibiotics and at least superficial I and D. He was given 2 g of IM ceftriaxone and left almost as soon as the I and D was completed. Asked him again to wait for printed discharge summary as well as antibiotic prescriptions and he chose not to. He left prior to obtaining dis charge instructions and prior to signing Against Medical Advice paperwork. I was very clear with him that I was concerned about multiple life-threatening infections, offered him multiple concessions and reassured him that we could help with his opioid addiction while in the hospital. He continued to decline additional care. Discharge Plan Departure Patient Disposition: Left Against Medical Advice Clinical Impression: Cellulitis and abscess of upper arm and forearm, Opioid use disorder Back pain Qualifiers: Back pain location: thoracic back pain Chronicity: acute Back pain laterality: midline Qualified Code(s): M54.6 - Pain in thoracic spine Instructions: DI for Cellulitis -- Adult Activity Restrictions/Additional Instructions: I am sorry that you felt that you were not able to stay in the hospital You have a large abscess of the right forearm that I am concerned could erode into the bone, your elbow joint or cause permanent disability of your right hand. I am also concerned that you are developing an infection in and around your spine as reason for your back pain Your IV drug use is killing you. Your risk for developing endocarditis, and infection around your heart goes up with each visit and each worsening abscess Please consider following up with [facility]amy or [facility] option for help with her opioid addiction. Even though you have chosen to go home today, you are welcome to return at any time and we will help you. 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: New sulfamethoxazole-trimethoprim [Bactrim DS] 800-160 mg tablet 1 tab PO BID Qty: 20 RF: 0 cephalexin 500 mg capsule 500 mg PO TID Qty: 30 RF: 0 No Action LISINOPRIL (Zestril / Prinivil) 10 mg Q DAY Qty: 0 RF: 0 [ISOSORBIDE] 30 mg PO Q DAY Qty: 0 RF: 0 FUROSEMIDE (Lasix) 20 mg Q DAY Qty: 0 RF: 0 [LEVETIRACETA] 1,500 mg BID Qty: 0 RF: 0 levetiracetam [Keppra] 500 mg tablet 1,000 mg PO BID Qty: 120 RF: 0 sertraline 25 mg tablet 25 mg PO DAILY Qty: 30 RF: 0 sulfamethoxazole-trimethoprim [Bactrim DS] 800-160 mg tablet 1 tab PO BID Qty: 20 RF: 0 clindamycin HCl 300 mg capsule 300 mg PO TID Qty: 30 RF: 0 levetiracetam 500 mg tablet 1,500 mg PO BID RF: 0 amoxicillin-pot clavulanate [Augmentin] 875-125 mg tablet 1 tab PO BID Qty: 14 RF: 0 sulfamethoxazole-trimethoprim [Bactrim DS] 800-160 mg tablet 1 tab PO BID Qty: 14 RF: 0 Stand Alone Forms: Against Medical Advice
== END 2020-10-11 01:27 | disposition left against medical advice (07) ==
PROVIDERS: Emergency Provider Emergency Medicine
DX: L03.113 Cellulitis of right upper limb (principal); L02.413 Cutaneous abscess of right upper limb; M54.6 Pain in thoracic spine; F11.99 Opioid use, unspecified with unspecified opioid-induced disorder; R50.9 Fever, unspecified
CPT/HCPCS: 10060; 96372; 96374; 96375; 99283; J0696; J1885

== ENCOUNTER 2021-01-27 06:18 | Inpatient (IN) | payer MEDICARE, MEDICAID, SELFPAY ==
[2019-10-22 10:09] VITALS: BMI 25.6
[2021-01-27] VITALS (16 sets, daily range): BP systolic 126–178; BP diastolic 59–109; PULSE 75–106; RESP 16–20; TEMP 36.7–37.6; O2SAT 94–100; BMI 24.8
--- NOTE | 2021-01-27 06:40 | ED_ITS ---
HPI - Skin/Abscess/Foreign Bdy <Charis Maurice, DO - Last Filed: 01/29/21 23:15> General Chief complaint: Skin/Abscess/Foreign Body Stated complaint: right arm infected x5 days Time Seen by Provider: 01/27/21 06:39 Source: patient Mode of arrival: Ambulatory Limitations: no limitations History of Present Illness HPI narrative: Patient is a 40-year-old male with who has history of IVDA heroin and methamphetamine, he states he has it seizure disorder, in the heart this order med of which he is taking medication for. A presenting today with 2 months of right arm swelling and redness. He says it has gotten worse. It initially started with an abscess which was I and D he went to halfway at that time and did not see antibiotics. Since and has slowly been getting worse. No fever or chi lls now no numbness tingling or Related Data Home Medications Medication Instructions Recorded Confirmed FUROSEMIDE (Lasix) 20 mg Q DAY #0 10/28/09 10/22/19 LISINOPRIL (Zestril / Prinivil) 10 mg Q DAY #0 10/28/09 10/22/19 [ISOSORBIDE] 30 mg PO Q DAY #0 10/28/09 10/22/19 [LEVETIRACETA] 1,500 mg BID #0 11/04/09 10/22/19 levetiracetam 500 mg tablet 1,500 mg PO BID 10/10/20 10/10/20 Previous Rx's Medication Instructions Recorded levetiracetam 500 mg tablet 1,000 mg PO BID #120 tab 11/16/17 (Keppra) sertraline 25 mg tablet 25 mg PO DAILY #30 tab 11/16/17 amoxicillin 875 mg-potassium 1 tab PO BID #14 tab 10/24/19 clavulanate 125 mg tablet (Augmentin) clindamycin HCl 300 mg capsule 300 mg PO TID #30 cap 06/24/20 sulfamethoxazole 800 1 tab PO BID #20 tab 06/24/20 mg-trimethoprim 160 mg tablet (Bactrim DS) sulfamethoxazole 800 1 tab PO BID #14 tab 07/17/20 mg-trimethoprim 160 mg tablet (Bactrim DS) cephalexin 500 mg capsule 500 mg PO TID #30 cap 10/11/20 sulfamethoxazole 800 1 tab PO BID #20 tab 10/11/20 mg-trimethoprim 160 mg tablet (Bactrim DS) Allergies Allergy/AdvReac Type Severity Reaction Status Date / Time morphine [MORPHINE] Allergy Severe mccann on Verified 10/10/20 20:34 skin Penicillins [PENICILLINS] AdvReac Severe vomiting Verified 10/10/20 20:34 <Mike Powell DO - Last Filed: 01/27/21 16:40> History of Present Illness HPI narrative: Patient is a 40-year-old male with who has history of IVDA heroin and methamphetamine, he states he has it seizure disorder, in the heart this order m ed of which he is taking medication for. A presenting today with 2 months of right arm swelling and redness. He says it has gotten worse. It initially started with an abscess which was I and D he went to halfway at that time and did not see antibiotics. Since and has slowly been getting worse. No fever or chills now no numbness tingling or weakness. Review of Systems <DO Eunice Medina Last Filed: 01/29/21 23:15> Review of Systems Narrative: GENERAL: Denies chills,fever HEENT: Denies throat pain RESPIRATORY: Denies dyspnea, cough, wheezing CARDIOVASCULAR: Denies chest pain, palpitations GASTROINTESTINAL: Denies nausea, vomiting MUSCULOSKELETAL: Denies extremity pain, injury SKIN: See PI NEUROLOGIC: Denies weakness, dizziness, headache, numbness 8 point review of systems is negative except for those stated above and HPI Patient History <DO Eunice Medina Last Filed: 01/29/21 23:15> Medical History (Updated 01/27/21 @ 10:49 by Mike Powell DO) Epilepsy Hypertension Opioid use disorder Surgical History No pertinent past surgical history Social History household members: none Smoking Status: Current every day smoker alcohol intake: current Smoking Status: Current every day smoker tobacco type: cigarettes alcohol intake frequency: a few times a week Substance Use Type: marijuana, heroin, IV drugs and methamphetamine Exam <DO Eunice Medina Last Filed: 01/29/21 23:15> Initial Vital Signs Initial Vital Signs: Vital Signs Temperature 99.5 F 01/27/21 06:28 Pulse Rate 106 H 01/27/21 06:28 Respiratory Rate 17 01/27/21 06:28 Blood Pressure 178/109 H 01/27/21 06:28 Pulse Oximetry 99 01/27/21 06:28 GENERAL: Dishevelled 40-year-old male sleepy but responds easily CARDIOVASCULAR: peripheral pulses in tact, cap refill <2 sec RESPIRATORY: No respiratory distress, speaks in full sentences without difficulty EXTREMITIES: Normal range of motion, no clubbing or edema. Neurovascularly int act NEUROLOGICAL: Cranial nerves II through XII grossly intact. Normal gait and speech. SKIN: Left arm forearm significantly swollen erythematous streaking up upper arm. Distal radial pulse intact to finger, compartments soft <Mike Powell DO - Last Filed: 01/27/21 16:40> Initial Vital Signs Initial Vital Signs: Vital Signs Temperature 99.5 F 01/27/21 06:28 Pulse Rate 106 H 01/27/21 06:28 Respiratory Rate 17 01/27/21 06:28 Blood Pressure 178/109 H 01/27/21 06:28 Pulse Oximetry 99 01/27/21 06:28 Course <Charis Richards, DO - Last Filed: 01/29/21 23:15> Orders Ordered: Acetaminophen (Acetaminophen 325 Mg Tablet) 650 mg PO Q6HR PRN PRN Reason: Fever/Mild Pain (1-3) Last Admin: 01/27/21 13:07 Dose: 650 mg Documented by: RHEA Chlordiazepoxide HCl (Chlordiazepoxide 25 Mg Capsule) 25 mg PO TID [facility] Last Admin: 01/29/21 21:07 Dose: 25 mg Documented by: Admin: 01/29/21 14:07 Dose: 25 mg Documented by: Admin: 01/29/21 09:21 Dose: 25 mg Documented by: Admin: 01/28/21 21:11 Dose: 25 mg Documented by: Admin: 01/28/21 16:39 Dose: 25 mg Documented by: Admin: 01/28/21 12:31 Dose: Not Given Documented by: Admin: 01/27/21 20:44 Dose: 25 mg Documented by: Admin: 01/27/21 17:03 Dose: 25 mg Documented by: Admin: 01/27/21 15:01 Dose: Not Given Documented by: RHEA Enoxaparin Sodium (Enoxaparin 40 Mg/0.4 Ml Syringe) 40 mg SUBCUT DAILY [facility] Last Admin: 01/29/21 09:00 Dose: Not Given Documented by: Admin: 01/28/21 09:11 Dose: 40 mg Documented by: Admin: 01/27/21 13:07 Dose: 40 mg Documented by: RHEA Gabapentin (Gabapentin 300 Mg Capsule) 300 mg PO TID [facility] Last Admin: 01/29/21 21:07 Dose: 300 mg Documented by: Admin: 01/29/21 14:08 Dose: 300 mg Documented by: Admin: 01/29/21 09:21 Dose: 300 mg Documented by: Admin: 01/28/21 21:10 Dose: 300 mg Documented by: Admin: 01/28/21 16:39 Dose: 300 mg Documented by: Admin: 01/28/21 12:31 Dose: Not Given Documented by: Admin: 01/27/21 21:13 Dose: 300 mg Documented by: Admin: 01/27/21 17:03 Dose: 300 mg Documented by: Admin: 01/27/21 15:01 Dose: Not Given Documented by: RHEA Heparin Sodium (Porcine) (Heparin Flush (Cl/Picc/Mid-Line) 50 Unit/5 Ml Syringe) 50 unit IV PRN PRN PRN Reason: Flush Last Admin: 01/28/21 05:56 Dose: 50 unit Documented by: EMMANUEL Heparin Sodium (Porcine) (Heparin Flush (Cl/Picc/Mid-Line) 50 Unit/5 Ml Syringe) 50 unit IV BID [facility] Last Admin: 01/29/21 21:07 Dose: 50 unit Documented by: Admin: 01/29/21 09:00 Dose: 50 unit Documented by: Admin: 01/28/21 21:10 Dose: 50 unit Documented by: Admin: 01/28/21 10:18 Dose: 50 unit Documented by: Admin: 01/27/21 20:44 Dose: 50 unit Documented by: EMMANUEL Hydromorphone HCl (Hydromorphone 1 Mg Inj) 1 mg IV Q4H PRN PRN Reason: Pain, Moderate (4-6) Last Admin: 01/29/21 01:34 Dose: 1 mg Documented by: Admin: 01/28/21 19:57 Dose: 1 mg Documented by: Admin: 01/28/21 15:08 Dose: 1 mg Documented by: Admin: 01/28/21 10:17 Dose: 1 mg Documented by: JANKI Potassium Chloride/Dextrose/Sod Cl (Dextrose 5%-0.45%Ns W/Kcl 20meq) 1,000 mls @ 100 mls/hr IV CONT [facility] Last Infusion: 01/29/21 18:34 Dose: 100 mls/hr Documented by: Infusion: 01/29/21 09:11 Dose: 0 mls/hr Documented by: Admin: 01/29/21 09:11 Dose: 100 mls/hr Documented by: Infusion: 01/29/21 07:09 Dose: 100 mls/hr Documented by: Admin: 01/28/21 21:09 Dose: 100 mls/hr Documented by: Infusion: 01/28/21 21:09 Dose: 100 mls/hr Documented by: Admin: 01/28/21 15:03 Dose: 100 mls/hr Documented by: Infusion: 01/28/21 12:39 Dose: 100 mls/hr Documented by: Admin: 01/28/21 02:39 Dose: 100 mls/hr Documented by: EMMANUEL Sodium Chloride (Normal Saline 0.9%) 250 mls @ 21 mls/hr IV Q24H PRN PRN Reason: Flush Last Infusion: 01/28/21 16:30 Dose: 0 mls/hr Documented by: Admin: 01/27/21 17:28 Dose: 21 mls/hr Documented by: RHEA Vancomycin HCl (Vancomycin) 1,250 mg in 250 mls @ 250 mls/hr IV Q8H [facility] Last Infusion: 01/29/21 19:47 Dose: 0 mls/hr Documented by: Admin: 01/29/21 18:31 Dose: 250 mls/hr Documented by: Admin: 01/29/21 13:26 Dose: Not Given Documented by: Infusion: 01/29/21 04:39 Dose: 250 mls/hr Documented by: Admin: 01/29/21 03:39 Dose: 250 mls/hr Documented by: Infusion: 01/28/21 21:06 Dose: 0 mls/hr Documented by: Admin: 01/28/21 19:46 Dose: 250 mls/hr Documented by: JACKELYN Cefepime HCl 1 gm/ Sodium (Chloride) 100 mls @ 200 mls/hr IV Q12H [facility] Last Infusion: 01/29/21 20:18 Dose: 0 mls/hr Documented by: Admin: 01/29/21 19:46 Dose: 200 mls/hr Documented by: MARYCARMEN Lactobacillus Acidophilus (Lactobacillus Acidophilus Tablet) 1 each PO TIDWM [facility] Last Admin: 01/29/21 18:02 Dose: Not Given Documented by: Admin: 01/29/21 13:26 Dose: Not Given Documented by: Admin: 01/29/21 09:21 Dose: 1 each Documented by: Admin: 01/28/21 16:39 Dose: 1 each Documented by: ZAKI Lorazepam (Lorazepam 2 Mg/Ml Inj) 1 mg IV Q4HR PRN PRN Reason: Anxiety Last Admin: 01/29/21 03:47 Dose: 1 mg Documented by: Admin: 01/28/21 23:38 Dose: 1 mg Documented by: Admin: 01/28/21 19:46 Dose: 1 mg Documented by: Admin: 01/28/21 14:53 Dose: 1 mg Documented by: Admin: 01/28/21 09:00 Dose: 1 mg Documented by: JANKI Melatonin (Melatonin 3 Mg Tablet) 6 mg PO BEDTIME [facility] Last Admin: 01/29/21 21:07 Dose: 6 mg Documented by: Admin: 01/28/21 21:10 Dose: 6 mg Documented by: ZAKI Methocarbamol (Methocarbamol 500 Mg Tablet) 500 mg PO QID PRN PRN Reason: Muscle Spasm Metronidazole (Metronidazole 500 Mg Tablet) 500 mg PO TID [facility] Last Admin: 01/29/21 21:07 Dose: 500 mg Documented by: Admin: 01/29/21 14:07 Dose: 500 mg Documented by: Admin: 01/29/21 09:21 Dose: 500 mg Documented by: Admin: 01/28/21 21:10 Dose: 500 mg Documented by: Admin: 01/28/21 16:39 Dose: 500 mg Documented by: Admin: 01/28/21 12:31 Dose: Not Given Documented by: Admin: 01/27/21 20:44 Dose: 500 mg Documented by: Admin: 01/27/21 17:04 Dose: 500 mg Documented by: Admin: 01/27/21 15:01 Dose: Not Given Documented by: Admin: 01/27/21 13:06 Dose: 500 mg Documented by: RHEA Naloxone HCl (Naloxone 0.4 Mg/Ml Vial) 0.2 mg IV Q2MIN PRN PRN Reason: Opiate Reversal Nicotine (Nicotine 21 Mg Patch) 21 mg TOP DAILY [facility] Last Admin: 01/29/21 09:02 Dose: 21 mg Documented by: Admin: 01/28/21 09:11 Dose: 21 mg Documented by: Admin: 01/27/21 14:59 Dose: 21 mg Documented by: RHEA Ondansetron HCl (Ondansetron 4 Mg/2 Ml Inj) 4 mg IV Q8HR PRN PRN Reason: Nausea And Vomiting Sennosides (Sennosides 8.6 Mg Tablet) 17.2 mg PO BEDTIME [facility] Admin: 01/29/21 21:08 Dose: 17.2 mg Documented by: Admin: 01/28/21 21:11 Dose: 17.2 mg Documented by: Admin: 01/27/21 20:44 Dose: 17.2 mg Documented by: EMMANUEL Sodium Chloride (Sodium Chloride 0.9% Flush) 10 ml IV PRN PRN PRN Reason: Flush Sodium Chloride (Sodium Chloride 0.9% Flush) 10 ml IV BID [facility] Admin: 01/29/21 21:08 Dose: 10 ml Documented by: Admin: 01/29/21 09:02 Dose: 10 ml Documented by: Admin: 01/28/21 21:11 Dose: 10 ml Documented by: Admin: 01/28/21 10:18 Dose: 10 ml Documented by: Admin: 01/27/21 20:45 Dose: 10 ml Documented by: EMMANUEL Tramadol HCl (Tramadol 50 Mg Tablet) 50 mg PO QID [facility] Last Admin: 01/29/21 21:06 Dose: 50 mg Documented by: Admin: 01/29/21 18:02 Dose: Not Given Documented by: Admin: 01/29/21 14:09 Dose: 50 mg Documented by: Admin: 01/29/21 09:21 Dose: 50 mg Documented by: Admin: 01/28/21 21:10 Dose: 50 mg Documented by: Admin: 01/28/21 16:40 Dose: Not Given Documented by: Admin: 01/28/21 16:39 Dose: 50 mg Documented by: ZAKI Trazodone HCl (Trazodone 100 Mg Tablet) 100 mg PO BEDTIME [facility] Last Admin: 01/29/21 21:08 Dose: 100 mg Documented by: Admin: 01/28/21 21:10 Dose: 100 mg Documented by: ZAKI Discontinued Medications Hydromorphone HCl (Hydromorphone 1 Mg Inj) 1 mg IV NOW ONE Stop: 01/28/21 13:07 Last Admin: 01/28/21 15:13 Dose: Not Given Documented by: ZAKI Ceftriaxone Sodium 1,000 mg/ (Sodium Chloride) 100 mls @ 200 mls/hr IV NOW ONE Stop: 01/27/21 06:41 Last Infusion: 01/27/21 08:28 Dose: 0 mls/hr Documented by: Admin: 01/27/21 08:01 Dose: 200 mls/hr Documented by: LISETH Vancomycin HCl (Vancomycin) 1,250 mg in 250 mls @ 250 mls/hr IV NOW ONE Stop: 01/27/21 07:39 Last Infusion: 01/27/21 09:24 Dose: 0 mls/hr Documented by: Admin: 01/27/21 08:28 Dose: 250 mls/hr Documented by: LISETH Cefepime HCl 1 gm/ Sodium (Chloride) 100 mls @ 200 mls/hr IV Q12H [facility] Last Admin: 01/29/21 13:26 Dose: Not Given Documented by: Admin: 01/28/21 12:52 Dose: 200 mls/hr Documented by: Infusion: 01/28/21 12:52 Dose: 200 mls/hr Documented by: Admin: 01/28/21 12:49 Dose: 200 mls/hr Documented by: Infusion: 01/28/21 03:10 Dose: 0 mls/hr Documented by: Admin: 01/28/21 02:40 Dose: 200 mls/hr Documented by: Infusion: 01/27/21 14:40 Dose: 0 mls/hr Documented by: Admin: 01/27/21 13:19 Dose: 200 mls/hr Documented by: RHEA Vancomycin HCl (Vancomycin) 1,000 mg in 200 mls @ 200 mls/hr IV Q6H [facility] Last Admin: 01/28/21 16:30 Dose: Not Given Documented by: Infusion: 01/28/21 12:30 Dose: 0 mls/hr Documented by: Admin: 01/28/21 10:13 Dose: 200 mls/hr Documented by: Infusion: 01/28/21 04:17 Dose: 200 mls/hr Documented by: Admin: 01/28/21 03:17 Dose: 200 mls/hr Documented by: Infusion: 01/27/21 21:50 Dose: 0 mls/hr Documented by: Admin: 01/27/21 20:45 Dose: 200 mls/hr Documented by: Infusion: 01/27/21 15:47 Dose: 200 mls/hr Documented by: Admin: 01/27/21 14:47 Dose: 200 mls/hr Documented by: RHEA Vancomycin HCl (Vancomycin) 1,000 mg in 200 mls @ 200 mls/hr IV Q6H [facility] Influenza Virus Vaccine (Influenza Vaccine Qiv 0.5 Ml Syringe) 0.5 ml IM .ONCE ONE Stop: 01/27/21 13:24 Last Admin: 01/28/21 12:27 Dose: Not Given Documented by: ZAKI Tramadol HCl (Tramadol 50 Mg Tablet) 50 mg PO QID PRN PRN Reason: Pain, Moderate (4-6) Last Admin: 01/27/21 17:03 Dose: 50 mg Documented by: RHEA Vancomycin HCl (Vancomycin Trough) 1 request [facility] 0830 ONE Stop: 01/28/21 08:31 Last Admin: 01/28/21 09:07 Dose: Not Given Documented by: JANKI Vancomycin HCl (Vancomycin Peak) 1 request [facility] 1100 ONE Stop: 01/28/21 11:01 Last Admin: 01/28/21 15:08 Dose: 1 request Documented by: ZAKI Vital Signs Vital signs: Vital Signs - 8 hr 01/27/21 08:41 01/27/21 09:00 01/27/21 09:30 Pulse Rate 85 94 H 97 H Respiratory Rate 18 20 Blood Pressure 156/70 H 153/71 H Pulse Oximetry 95 98 97 01/27/21 09:31 01/27/21 09:47 01/27/21 10:00 Pulse Rate 96 H 98 H 98 H Respiratory Rate 18 18 16 Blood Pressure 140/59 L 156/74 H 157/72 H Pulse Oximetry 98 100 99 01/27/21 10:30 01/27/21 11:00 Pulse Rate 90 90 Respiratory Rate 16 16 Blood Pressure 149/77 H 134/67 Pulse Oximetry 97 96 <Mike Powell, - Last Filed: 01/27/21 16:40> Orders Ordered: Acetaminophen (Acetaminophen 325 Mg Tablet) 650 mg PO Q6HR PRN PRN Reason: Fever/Mild Pain (1-3) Last Admin: 01/27/21 13:07 Dose: 650 mg Documented by: RHEA Chlordiazepoxide HCl (Chlordiazepoxide 25 Mg Capsule) 25 mg PO TID [facility] Last Admin: 01/29/21 21:07 Dose: 25 mg Documented by: Admin: 01/29/21 14:07 Dose: 25 mg Documented by: Admin: 01/29/21 09:21 Dose: 25 mg Documented by: Admin: 01/28/21 21:11 Dose: 25 mg Documented by: Admin: 01/28/21 16:39 Dose: 25 mg Documented by: Admin: 01/28/21 12:31 Dose: Not Given Documented by: Admin: 12/17/21 20:44 Dose: 25 mg Documented by: Admin: 01/27/21 17:03 Dose: 25 mg Documented by: Admin: 01/27/21 15:01 Dose: Not Given Documented by: RHEA Enoxaparin Sodium (Enoxaparin 40 Mg/0.4 Ml Syringe) 40 mg SUBCUT DAILY [facility] Last Admin: 01/29/21 09:00 Dose: Not Given Documented by: Admin: 01/28/21 09:11 Dose: 40 mg Documented by: Admin: 01/27/21 13:07 Dose: 40 mg Documented by: RHEA Gabapentin (Gabapentin 300 Mg Capsule) 300 mg PO TID [facility] Last Admin: 01/29/21 21:07 Dose: 300 mg Documented by: Admin: 01/29/21 14:08 Dose: 300 mg Documented by: Admin: 01/29/21 09:21 Dose: 300 mg Documented by: Admin: 01/28/21 21:10 Dose: 300 mg Documented by: Admin: 01/28/21 16:39 Dose: 300 mg Documented by: Admin: 01/28/21 12:31 Dose: Not Given Documented by: Admin: 01/27/21 21:13 Dose: 300 mg Documented by: Admin: 01/27/21 17:03 Dose: 300 mg Documented by: Admin: 01/27/21 15:01 Dose: Not Given Documented by: RHEA Heparin Sodium (Porcine) (Heparin Flush (Cl/Picc/Mid-Line) 50 Unit/5 Ml Syringe) 50 unit IV PRN PRN PRN Reason: Flush Last Admin: 01/28/21 05:56 Dose: 50 unit Documented by: EMMANUEL Heparin Sodium (Porcine) (Heparin Flush (Cl/Picc/Mid-Line) 50 Unit/5 Ml Syringe) 50 unit IV BID [facility] Last Admin: 01/29/21 21:07 Dose: 50 unit Documented by: Admin: 01/29/21 09:00 Dose: 50 unit Documented by: Admin: 01/28/21 21:10 Dose: 50 unit Documented by: Admin: 01/28/21 10:18 Dose: 50 unit Documented by: Admin: 01/27/21 20:44 Dose: 50 unit Documented by: EMMANUEL Hydromorphone HCl (Hydromorphone 1 Mg Inj) 1 mg IV Q4H PRN PRN Reason: Pain, Moderate (4-6) Last Admin: 01/29/21 01:34 Dose: 1 mg Documented by: Admin: 01/28/21 19:57 Dose: 1 mg Documented by: Admin: 01/28/21 15:08 Dose: 1 mg Documented by: Admin: 01/28/21 10:17 Dose: 1 mg Documented by: JANKI Potassium Chloride/Dextrose/Sod Cl (Dextrose 5%-0.45%Ns W/Kcl 20meq) 1,000 mls @ 100 mls/hr IV CONT [facility] Last Infusion: 01/29/21 18:34 Dose: 100 mls/hr Documented by: Infusion: 01/29/21 09:11 Dose: 0 mls/hr Documented by: Admin: 01/29/21 09:11 Dose: 100 mls/hr Documented by: Infusion: 01/29/21 07:09 Dose: 100 mls/hr Documented by: Admin: 01/28/21 21:09 Dose: 100 mls/hr Documented by: Infusion: 01/28/21 21:09 Dose: 100 mls/hr Documented by: Admin: 01/28/21 15:03 Dose: 100 mls/hr Documented by: Infusion: 01/28/21 12:39 Dose: 100 mls/hr Documented by: Admin: 01/28/21 02:39 Dose: 100 mls/hr Documented by: EMMANUEL Sodium Chloride (Normal Saline 0.9%) 250 mls @ 21 mls/hr IV Q24H PRN PRN Reason: Flush Last Infusion: 01/28/21 16:30 Dose: 0 mls/hr Documented by: Admin: 01/27/21 17:28 Dose: 21 mls/hr Documented by: RHEA Vancomycin HCl (Vancomycin) 1,250 mg in 250 mls @ 250 mls/hr IV Q8H [facility] Last Infusion: 01/29/21 19:47 Dose: 0 mls/hr Documented by: Admin: 01/29/21 18:31 Dose: 250 mls/hr Documented by: Admin: 01/29/21 13:26 Dose: Not Given Documented by: Infusion: 01/29/21 04:39 Dose: 250 mls/hr Documented by: Admin: 01/29/21 03:39 Dose: 250 mls/hr Documented by: Infusion: 01/28/21 21:06 Dose: 0 mls/hr Documented by: Admin: 01/28/21 19:46 Dose: 250 mls/hr Documented by: JACKELYN Cefepime HCl 1 gm/ Sodium (Chloride) 100 mls @ 200 mls/hr IV Q12H [facility] Last Infusion: 01/29/21 20:18 Dose: 0 mls/hr Documented by: Admin: 01/29/21 19:46 Dose: 200 mls/hr Documented by: MARYCARMEN Lactobacillus Acidophilus (Lactobacillus Acidophilus Tablet) 1 each PO TIDWM [facility] Last Admin: 01/29/21 18:02 Dose: Not Given Documented by: Admin: 01/29/21 13:26 Dose: Not Given Documented by: Admin: 01/29/21 09:21 Dose: 1 each Documented by: Admin: 01/28/21 16:39 Dose: 1 each Documented by: ZAKI Lorazepam (Lorazepam 2 Mg/Ml Inj) 1 mg IV Q4HR PRN PRN Reason: Anxiety Last Admin: 01/29/21 03:47 Dose: 1 mg Documented by: Admin: 01/28/21 23:38 Dose: 1 mg Documented by: Admin: 01/28/21 19:46 Dose: 1 mg Documented by: Admin: 01/28/21 14:53 Dose: 1 mg Documented by: Admin: 01/28/21 09:00 Dose: 1 mg Documented by: JANKI Melatonin (Melatonin 3 Mg Tablet) 6 mg PO BEDTIME [facility] Last Admin: 01/29/21 21:07 Dose: 6 mg Documented by: Admin: 01/28/21 21:10 Dose: 6 mg Documented by: KKNOTT Methocarbamol (Methocarbamol 500 Mg Tablet) 500 mg PO QID PRN PRN Reason: Muscle Spasm Metronidazole (Metronidazole 500 Mg Tablet) 500 mg PO TID [facility] Last Admin: 01/29/21 21:07 Dose: 500 mg Documented by: Admin: 01/29/21 14:07 Dose: 500 mg Documented by: Admin: 01/29/21 09:21 Dose: 500 mg Documented by: Admin: 01/28/21 21:10 Dose: 500 mg Documented by: Admin: 01/28/21 16:39 Dose: 500 mg Documented by: Admin: 01/28/21 12:31 Dose: Not Given Documented by: Admin: 01/27/21 20:44 Dose: 500 mg Documented by: Admin: 01/27/21 17:04 Dose: 500 mg Documented by: Admin: 01/27/21 15:01 Dose: Not Given Documented by: Admin: 01/27/21 13:06 Dose: 500 mg Documented by: RHEA Naloxone HCl (Naloxone 0.4 Mg/Ml Vial) 0.2 mg IV Q2MIN PRN PRN Reason: Opiate Reversal Nicotine (Nicotine 21 Mg Patch) 21 mg TOP DAILY [facility] Last Admin: 01/29/21 09:02 Dose: 21 mg Documented by: Admin: 01/28/21 09:11 Dose: 21 mg Documented by: Admin: 01/27/21 14:59 Dose: 21 mg Documented by: RHEA Ondansetron HCl (Ondansetron 4 Mg/2 Ml Inj) 4 mg IV Q8HR PRN PRN Reason: Nausea And Vomiting Sennosides (Sennosides 8.6 Mg Tablet) 17.2 mg PO BEDTIME [facility] Last Admin: 01/29/21 21:08 Dose: 17.2 mg Documented by: Admin: 01/28/21 21:11 Dose: 17.2 mg Documented by: Admin: 01/27/21 20:44 Dose: 17.2 mg Documented by: EMMANUEL Sodium Chloride (Sodium Chloride 0.9% Flush) 10 ml IV PRN PRN PRN Reason: Flush Sodium Chloride (Sodium Chloride 0.9% Flush) 10 ml IV BID [facility] Last Admin: 01/29/21 21:08 Dose: 10 ml Documented by: Admin: 01/29/21 09:02 Dose: 10 ml Documented by: Admin: 01/28/21 21:11 Dose: 10 ml Documented by: Admin: 01/28/21 10:18 Dose: 10 ml Documented by: Admin: 01/27/21 20:45 Dose: 10 ml Documented by: EMMANUEL Tramadol HCl (Tramadol 50 Mg Tablet) 50 mg PO QID [facility] Last Admin: 01/29/21 21:06 Dose: 50 mg Documented by: Admin: 01/29/21 18:02 Dose: Not Given Documented by: Admin: 01/29/21 14:09 Dose: 50 mg Documented by: Admin: 01/29/21 09:21 Dose: 50 mg Documented by: Admin: 01/28/21 21:10 Dose: 50 mg Documented by: Admin: 01/28/21 16:40 Dose: Not Given Documented by: Admin: 01/28/21 16:39 Dose: 50 mg Documented by: ZAKI Trazodone HCl (Trazodone 100 Mg Tablet) 100 mg PO BEDTIME [facility] Last Admin: 01/29/21 21:08 Dose: 100 mg Documented by: Admin: 01/28/21 21:10 Dose: 100 mg Documented by: ZAKI Discontinued Medications Hydromorphone HCl (Hydromorphone 1 Mg Inj) 1 mg IV NOW ONE Stop: 01/28/21 13:07 Last Admin: 01/28/21 15:13 Dose: Not Given Documented by: ZAKI Ceftriaxone Sodium 1,000 mg/ (Sodium Chloride) 100 mls @ 200 mls/hr IV NOW ONE Stop: 01/27/21 06:41 Last Infusion: 01/27/21 08:28 Dose: 0 mls/hr Documented by: Admin: 01/27/21 08:01 Dose: 200 mls/hr Documented by: LISETH Vancomycin HCl (Vancomycin) 1,250 mg in 250 mls @ 250 mls/hr IV NOW ONE Stop: 01/27/21 07:39 Last Infusion: 01/27/21 09:24 Dose: 0 mls/hr Documented by: Admin: 01/27/21 08:28 Dose: 250 mls/hr Documented by: LISETH Cefepime HCl 1 gm/ Sodium (Chloride) 100 mls @ 200 mls/hr IV Q12H [facility] Last Admin: 01/29/21 13:26 Dose: Not Given Documented by: Admin: 01/28/21 12:52 Dose: 200 mls/hr Documented by: Infusion: 01/28/21 12:52 Dose: 200 mls/hr Documented by: Admin: 01/28/21 12:49 Dose: 200 mls/hr Documented by: Infusion: 01/28/21 03:10 Dose: 0 mls/hr Documented by: Admin: 01/28/21 02:40 Dose: 200 mls/hr Documented by: Infusion: 01/27/21 14:40 Dose: 0 mls/hr Documented by: Admin: 01/27/21 13:19 Dose: 200 mls/hr Documented by: RHEA Vancomycin HCl (Vancomycin) 1,000 mg in 200 mls @ 200 mls/hr IV Q6H [facility] Last Admin: 01/28/21 16:30 Dose: Not Given Documented by: Infusion: 01/28/21 12:30 Dose: 0 mls/hr Documented by: Admin: 01/28/21 10:13 Dose: 200 mls/hr Documented by: Infusion: 01/28/21 04:17 Dose: 200 mls/hr Documented by: Admin: 01/28/21 03:17 Dose: 200 mls/hr Documented by: Infusion: 01/27/21 21:50 Dose: 0 mls/hr Documented by: Admin: 01/27/21 20:45 Dose: 200 mls/hr Documented by: Infusion: 01/27/21 15:47 Dose: 200 mls/hr Documented by: Admin: 01/27/21 14:47 Dose: 200 mls/hr Documented by: RHEA Vancomycin HCl (Vancomycin) 1,000 mg in 200 mls @ 200 mls/hr IV Q6H [facility] [facility] Influenza Virus Vaccine (Influenza Vaccine Qiv 0.5 Ml Syringe) 0.5 ml IM .ONCE ONE Stop: 01/27/21 13:24 Last Admin: 01/28/21 12:27 Dose: Not Given Documented by: ZAKI Tramadol HCl (Tramadol 50 Mg Tablet) 50 mg PO QID PRN PRN Reason: Pain, Moderate (4-6) Last Admin: 01/27/21 17:03 Dose: 50 mg Documented by: RHEA Vancomycin HCl (Vancomycin Trough) 1 request [facility] 0830 ONE Stop: 01/28/21 08:31 Last Admin: 01/28/21 09:07 Dose: Not Given Documented by: JANKI Vancomycin HCl (Vancomycin Peak) 1 request [facility] 1100 ONE Stop: 01/28/21 11:01 Last Admin: 01/28/21 15:08 Dose: 1 request Documented by: ZAKI Vital Signs Vital signs: Vital Signs - 8 hr 01/27/21 08:41 01/27/21 09:00 01/27/21 09:30 Pulse Rate 85 94 H 97 H Respiratory Rate 18 20 Blood Pressure 156/70 H 153/71 H Pulse Oximetry 95 98 97 01/27/21 09:31 01/27/21 09:47 01/27/21 10:00 Pulse Rate 96 H 98 H 98 H Respiratory Rate 18 18 16 Blood Pressure 140/59 L 156/74 H 157/72 H Pulse Oximetry 98 100 99 01/27/21 10:30 01/27/21 11:00 Pulse Rate 90 90 Respiratory Rate 16 16 Blood Pressure 149/77 H 134/67 Pulse Oximetry 97 96 MDM - Skin/Abscess/Foreign Bdy <Charis Richards, - Last Filed: 01/29/21 23:15> Lab Data Result diagrams: 01/29/21 05:40 01/28/21 06:00 Labs: Lab Results 01/27/21 01/27/21 01/27/21 Range/Units 07:35 07:35 07:35 WBC 11.0 (4.5-11.0) X10^3/uL RBC 3.84 L (4.5-5.9) X10^6/uL Hgb 11.3 L (13.5-17.5) g/dL Hct 32.0 L (41-53) % MCV 83.4 (80-100) fL MCH 29.3 (26-34) PG MCHC 35.2 (30-36) % RDW 14.2 (11.6-14.8) % Plt Count 195 (150-400) X10^3/uL Neut % (Auto) 76.8 H (50-75) % Lymph % (Auto) 13.5 L (25-40) % [place] % (Auto) 7.7 (3-14) % Eos % (Auto) 1.8 L (2-4) % Baso % (Auto) 0.2 (0-2) % Neut # (Auto) 8400 H (9173-8414) /uL Lymph # (Auto) 1500 (2149-6542) /uL [place] # (Auto) 800 (0-900) /uL Eos # (Auto) 200 (0-450) /uL Baso # (Auto) 0 (0-100) /uL Sodium 135 L (137-145) mmol/L Potassium 3.5 (3.4-5.1) mmol/L Chloride 99 (98-107) mmol/L Carbon Dioxide 31 (22-32) mmol/L BUN 17 (9-20) mg/dL Creatinine 0.75 (0.66-1.25) mg/dL Estimated GFR > 60.0 (>60) mL/min BUN/Creatinine Ratio 22.7 H (6-22) Glucose 111 H (70-100) mg/dL Lactate 0.7 (0.7-2.1) mmol/L Calcium 8.7 (8.4-10.2) mg/dL Total Bilirubin 0.4 (0.2-1.3) mg/dL AST 26 (17-59) IU/L ALT 18 (<50) IU/L Alkaline Phosphatase 76 (38-126) U/L Total Creatine Kinase (55-170) U/L Total Protein 7.7 (6.3-8.2) g/dL Albumin 3.5 (3.5-5.0) g/dL Globulin 4.2 H (1.7-4.1) g/dL Albumin/Globulin Ratio 0.8 L (1.0-2.8) Procalcitonin 0.13 (<0.5) ng/mL SARS-CoV-2 (PCR) (Negative) 01/27/21 01/27/21 Range/Units 07:35 07:40 WBC (4.5-11.0) X10^3/uL RBC (4.5-5.9) X10^6/uL Hgb (13.5-17.5) g/dL Hct (41-53) % MCV (80-100) fL MCH (26-34) PG MCHC (30-36) % RDW (11.6-14.8) % Plt Count (150-400) X10^3/uL Neut % (Auto) (50-75) % Lymph % (Auto) (25-40) % [place] % (Auto) (3-14) % Eos % (Auto) (2-4) % Baso % (Auto) (0-2) % Neut # (Auto) (5444-0853) /uL Lymph # (Auto) (5809-7898) /uL [place] # (Auto) (0-900) /uL Eos # (Auto) (0-450) /uL Baso # (Auto) (0-100) /uL Sodium (137-145) mmol/L Potassium (3.4-5.1) mmol/L Chloride (98-107) mmol/L Carbon Dioxide (22-32) mmol/L BUN (9-20) mg/dL Creatinine (0.66-1.25) mg/dL Estimated GFR (>60) mL/min BUN/Creatinine Ratio (6-22) Glucose (70-100) mg/dL Lactate (0.7-2.1) mmol/L Calcium (8.4-10.2) mg/dL Total Bilirubin (0.2-1.3) mg/dL AST (17-59) IU/L ALT (<50) IU/L Alkaline Phosphatase (38-126) U/L Total Creatine Kinase 121 (55-170) U/L Total Protein (6.3-8.2) g/dL Albumin (3.5-5.0) g/dL Globulin (1.7-4.1) g/dL Albumin/Globulin Ratio (1.0-2.8) Procalcitonin (<0.5) ng/mL SARS-CoV-2 (PCR) Negative (Negative) MDM Narrative Medical decision making narrative: Patient initially briefly seen by myself, noted to have significantly erythematous swollen right arm after IVDA, arm was soft with distal radial pulse intact. Orders were placed by me and Dr. Powell immediately took over. <Mike Powell, DO - Last Filed: 01/27/21 16:40> Lab Data Labs: Lab Results 01/27/21 01/27/21 01/27/21 Range/Units 07:35 07:35 07:35 WBC 11.0 (4.5-11.0) X10^3/uL RBC 3.84 L (4.5-5.9) X10^6/uL Hgb 11.3 L (13.5-17.5) g/dL Hct 32.0 L (41-53) % MCV 83.4 (80-100) fL MCH 29.3 (26-34) PG MCHC 35.2 (30-36) % RDW 14.2 (11.6-14.8) % Plt Count 195 (150-400) X10^3/uL Neut % (Auto) 76.8 H (50-75) % Lymph % (Auto) 13.5 L (25-40) % [place] % (Auto) 7.7 (3-14) % Eos % (Auto) 1.8 L (2-4) % Baso % (Auto) 0.2 (0-2) % Neut # (Auto) 8400 H (4645-5699) /uL Lymph # (Auto) 1500 (7492-5508) /uL [place] # (Auto) 800 (0-900) /uL Eos # (Auto) 200 (0-450) /uL Baso # (Auto) 0 (0-100) /uL Sodium 135 L (137-145) mmol/L Potassium 3.5 (3.4-5.1) mmol/L Chloride 99 (98-107) mmol/L Carbon Dioxide 31 (22-32) mmol/L BUN 17 (9-20) mg/dL Creatinine 0.75 (0.66-1.25) mg/dL Estimated GFR > 60.0 (>60) mL/min BUN/Creatinine Ratio 22.7 H (6-22) Glucose 111 H (70-100) mg/dL Lactate 0.7 (0.7-2.1) mmol/L Calcium 8.7 (8.4-10.2) mg/dL Total Bilirubin 0.4 (0.2-1.3) mg/dL AST 26 (17-59) IU/L ALT 18 (<50) IU/L Alkaline Phosphatase 76 (38-126) U/L Total Creatine Kinase (55-170) U/L Total Protein 7.7 (6.3-8.2) g/dL Albumin 3.5 (3.5-5.0) g/dL Globulin 4.2 H (1.7-4.1) g/dL Albumin/Globulin Ratio 0.8 L (1.0-2.8) Procalcitonin 0.13 (<0.5) ng/mL SARS-CoV-2 (PCR) (Negative) 01/27/21 01/27/21 Range/Units 07:35 07:40 WBC (4.5-11.0) X10^3/uL RBC (4.5-5.9) X10^6/uL Hgb (13.5-17.5) g/dL Hct (41-53) % MCV (80-100) fL MCH (26-34) PG MCHC (30-36) % RDW (11.6-14.8) % Plt Count (150-400) X10^3/uL Neut % (Auto) (50-75) % Lymph % (Auto) (25-40) % [place] % (Auto) (3-14) % Eos % (Auto) (2-4) % Baso % (Auto) (0-2) % Neut # (Auto) (1526-5650) /uL Lymph # (Auto) (1075-0823) /uL [place] # (Auto) (0-900) /uL Eos # (Auto) (0-450) /uL Baso # (Auto) (0-100) /uL Sodium (137-145) mmol/L Potassium (3.4-5.1) mmol/L Chloride (98-107) mmol/L Carbon Dioxide (22-32) mmol/L BUN (9-20) mg/dL Creatinine (0.66-1.25) mg/dL Estimated GFR (>60) mL/min BUN/Creatinine Ratio (6-22) Glucose (70-100) mg/dL Lactate (0.7-2.1) mmol/L Calcium (8.4-10.2) mg/dL Total Bilirubin (0.2-1.3) mg/dL AST (17-59) IU/L ALT (<50) IU/L Alkaline Phosphatase (38-126) U/L Total Creatine Kinase 121 (55-170) U/L Total Protein (6.3-8.2) g/dL Albumin (3.5-5.0) g/dL Globulin (1.7-4.1) g/dL Albumin/Globulin Ratio (1.0-2.8) Procalcitonin (<0.5) ng/mL SARS-CoV-2 (PCR) Negative (Negative) Imaging Data CT UE: Radiologist's Impression: Amish Marc??40??M??1980 ? Allergy/Adv: morphine, Penicillins Close Upper Extremity CT (Signed) Chris Valenzuela - 01/27/21 Hand X-Ray (Signed) Kervin Yanez - 10/24/19 Lower Extremity MRI (Signed) Nemesio Gray - 10/22/19 Telemetry Strips 10/22/19 Chest X-Ray (Signed) Pilar Mcdonald - 10/21/19 Abdomen/Pelvis CT (Signed) Negro Luna - 10/21/19 Vascular Ultrasound (Signed) Negro Luna - 10/02/19 Wrist X-Ray (Signed) Nemesio Gray - 08/01/19 Wrist X-Ray (Signed) Nemesio Gray - 08/01/19 Hand X-Ray (Signed) Nemesio Gray - 08/01/19 Hand X-Ray (Signed) Nemesio Gray - 08/01/19 Hand X-Ray (Signed) Jamal Rao - 07/07/19 [place] [id number] CT Scan Report Signed Patient: Amish Marc MR#: [id number] : 1980 Acct:[id number] Age/Sex: 40 / M Date of Service: 01/27/21 Loc: ED Accession Number: [id number] ?? Procedure: CT UE RT w con Ordering Provider: Mike Powell D.O. PROCEDURE:? CT UE RT W CON ? INDICATIONS:? pain swelling, redness ? TECHNIQUE:? After the administration of intravenous contrast, 3 mm axial sections acquired of the right upper extremity , with coronal and sagittal reformats. ? ? COMPARISON:? None. ? FINDINGS:? Image quality:? Excellent.? ? Bones:? No acute, displaced fracture.? No cortical destruction is seen to suggest osteomyelitis. Os acromiale.? An intra-articular body is seen adjacent to the coronoid process. ? Soft tissues:? Reticulated and confluent soft tissue density seen in the subcutaneous fat as well as skin thickening, compatible with edema/cellulitis.? A 9 mm hyp oattenuating focus is seen in the antecubital fossa musculature (series 3, image 288), which may reflect phlegmon or small abscess.? No fascial gas is appreciated.? Mild edematous change of the musculature in the antecubital fossa. ? Prominent right axillary lymph nodes, which may be reactive. ? IMPRESSION:? 1. No acute osseous abnormality. 2. Abnormal appearance of the soft tissues as detailed above, most consistent with edema/cellulitis.? 3. Mild edematous change of the musculature in the antecubital fossa, which may reflect reactive edema.? Myositis cannot be excluded.? 4. Subcentimeter hypoattenuating focus in the antecubital fossa musculature, which may reflect phlegmon or small abscess.? ? Dictated by: Chris Valenzuela M.D. on 01/27/2021 at 10:10 ? ? Approved by: Chris Valenzuela M.D. on 01/27/2021 at 10:18 ? Discharge Plan Departure Patient Disposition: Admitted As Inpatient Clinical Impression: Cellulitis and abscess of upper arm and forearm Admit Date/Time: 01/27/21 11:27 Admit Provider: Yumiko Valadez
[2021-01-27 07:59] LABS: Add Manual Diff / Slide Review NO; Basophils Absolute Auto 0 /uL (0-100); Basophils Percent Auto 0.2 % (0-2); Eosinophils Absolute Auto 200 /uL (0-450); Eosinophils Percent Auto 1.8 % (2-4); Hemoglobin 11.3 g/dL (13.5-17.5); Lymphocytes Absolute Auto 1500 /uL (1100-4500); Lymphocytes Percent Auto 13.5 % (25-40); Mean Corpuscular HGB Conc 35.2 % (30-36); Mean Corpuscular Hemoglobin 29.3 PG (26-34); Mean Corpuscular Volume 83.4 fL (80-100); Monocytes Absolute Auto 800 /uL (0-900); Monocytes Percent Auto 7.7 % (3-14); Neutrophils Absolute Auto 8400 /uL (1500-7000); Neutrophils Percent Auto 76.8 % (50-75); Platelet Count 195 X10^3/uL (150-400); Red Blood Cell Count 3.84 X10^6/uL (4.5-5.9); Red Cell Distribution Width 14.2 % (11.6-14.8)
[2021-01-27] MEDS: cefTRIAXone 1,000 MG in SODIUM CHLORIDE 0.9% 100 ML 200 ML IV (08:01)
[2021-01-27 08:13] LABS: Lactate (Lactic Acid) 0.7 mmol/L (0.7-2.1)
[2021-01-27 08:14] LABS: Alanine Aminotransferase 18 IU/L (<50); Albumin 3.5 g/dL (3.5-5.0); Albumin Globulin Ratio 0.8 (1.0-2.8); Alkaline Phosphatase 76 U/L (38-126); Aspartate Aminotransferase 26 IU/L (17-59); BUN Creatinine Ratio 22.7 (6-22); Bilirubin Total 0.4 mg/dL (0.2-1.3); Blood Urea Nitrogen 17 mg/dL (9-20); Calcium 8.7 mg/dL (8.4-10.2); Carbon Dioxide 31 mmol/L (22-32); Chloride 99 mmol/L (98-107); Estimated Glomerular Filt Rate > 60.0 mL/min (>60); Globulin 4.2 g/dL (1.7-4.1); Glucose 111 mg/dL (70-100); HEMOLYSIS < 15 (0-50); Potassium 3.5 mmol/L (3.4-5.1); Sodium 135 mmol/L (137-145); Total Protein 7.7 g/dL (6.3-8.2)
[2021-01-27] MEDS: VANCOMYCIN 1,250 MG/250 ML PIGGYBACK 250 MG IV (08:28)
[2021-01-27 08:29] LABS: Procalcitonin 0.13 ng/mL (<0.5)
[2021-01-27 08:57] LABS: COVID19 - ADMIT (NP swab/PCR) Negative (Negative)
--- NOTE | 2021-01-27 09:29 | DI.CT.S_ITS ---
PROCEDURE: CT UE RT W CON INDICATIONS: pain swelling, redness TECHNIQUE: After the administration of intravenous contrast, 3 mm axial sections acquired of the right upper extremity , with coronal and sagittal reformats. COMPARISON: None. FINDINGS: Image quality: Excellent. Bones: No acute, displaced fracture. No cortical destruction is seen to suggest osteomyelitis. Os acromiale. An intra-articular body is seen adjacent to the coronoid process. Soft tissues: Reticulated and confluent soft tissue density seen in the subcutaneous fat as well as skin thickening, compatible with edema/cellulitis. A 9 mm hypoattenuating focus is seen in the antecubital fossa musculature (series 3, image 288), which may reflect phlegmon or small abscess. No fascial gas is appreciated. Mild edematous change of the musculature in the antecubital fossa. Prominent right axillary lymph nodes, which may be reactive. IMPRESSION: 1. No acute osseous abnormality. 2. Abnormal appearance of the soft tissues as detailed above, most consistent with edema/cellulitis. 3. Mild edematous change of the musculature in the antecubital fossa, which may reflect reactive edema. Myositis cannot be excluded. 4. Subcentimeter hypoattenuating focus in the antecubital fossa musculature, which may reflect phlegmon or small abscess. Dictated by: Chris Valenzuela M.D. on 01/27/2021 at 10:10 Approved by: Chris Valenzuela M.D. on 01/27/2021 at 10:18
--- NOTE | 2021-01-27 09:31 | PC.NURSE ---
Provider asked for records for patients visit to [facility] for visits on 11/21/2020 & 11/23/2020. Called the appropriate medical records department and made the request. Records received and handed to Dr. Powell.
[2021-01-27 10:57] LABS: Creatine Kinase 121 U/L (55-170)
--- NOTE | 2021-01-27 11:54 | PC.NURSE ---
report given to beth colorado acu [id number]
--- NOTE | 2021-01-27 12:43 | PC.NURSE ---
Day shift: Pt on unit from ED at approx 1240. He is A&Ox4. His rt arm does appear infected and red. C/o pain with movement or touch to that area. Denies nausea and is eating food. Steady on feet and has voided in the bathroom. has also been informed that Pt is in room now. Oriented to room and call light. Call light in reach.
[2021-01-27] MEDS: metroNIDAZOLE 500 MG TABLET PO ×3 (13:06→20:44)
[2021-01-27] MEDS: ENOXAPARIN 40 MG/0.4 ML SYRINGE SUBCUT (13:07)
[2021-01-27] MEDS: ACETAMINOPHEN 325 MG TABLET 650 MG PO (13:07)
[2021-01-27] MEDS: CEFEPIME 1 GM in SODIUM CHLORIDE 0.9% 100 ML 200 ML IV (13:19)
--- NOTE | 2021-01-27 14:22 | PM.HP.1 ---
History of Present Illness History of Present Illness Date Patient Seen: 01/27/21 Time Patient Seen: 14:24 Chief complaint: right arm infected x5 days Narrative: THIS IS A 40-YEAR-OLD MALE WHO ADMITTED THAT HE USES ILLICIT DRUGS. HE USUALLY INJECTS HEROIN. REPORTEDLY. HE ALSO REPORTED DRINKING ALCOHOL DAILY WELL SMOKING EXTENSIVELY. HE REPORTED THAT ABOUT 5 DAYS AGO HE STARTED HAVING SOME PAIN TO THE RIGHT UPPER ARM THIS IS THE ARM THAT HE USED LAST TO INJECT HEROIN. HE REPORTED SOME SUBJECTIVE FEVERS. NO CHILLS. HE DENIES ANY PUS OR PURULENT ORDER. NO INSECT BITE. NO TRAUMAS. HE ALSO REPORTED SOME SWELLING MEDIALLY TO THE FOREARM. THE ARM HAS BEEN VERY PAINFUL. IT IS THE RIGHT UPPER ARM AROUND THE ELBOW AREA ANTERIORLY. HE HAD NO OTHER COMPLAINTS Patient History Medical History (Updated 01/27/21 @ 10:49 by Mike Powell DO) Epilepsy Hypertension Opioid use disorder Surgical History No pertinent past surgical history Family & Social History Social History: household members none Prior Living Arrangements Homeless Safety & Behavioral: Feels Safe in Current Yes Environment Been Physically Hurt or No Threatened By a Person Suicidal Ideation Description None Suicide Plan Description No Plan Tobacco & Substance use: Tobacco type cigarettes Smoking Status Current every day smoker Smoking packs per day 1 alcohol intake current alcohol intake frequency a few times a week Substance Use Type marijuana,IV drugs,heroin,methamphetamine Meds Home Medications and Allergies Home Medications Medication Instructions Recorded Confirmed Type FUROSEMIDE (Lasix) 20 mg Q DAY #0 10/28/09 10/22/19 History LISINOPRIL (Zestril / Prinivil) 10 mg Q DAY #0 10/28/09 10/22/19 History [ISOSORBIDE] 30 mg PO Q DAY #0 10/28/09 10/22/19 History [LEVETIRACETA] 1,500 mg BID #0 11/04/09 10/22/19 History levetiracetam 500 mg tablet 1,000 mg PO BID #120 tab 11/16/17 10/22/19 Rx (Keppra) sertraline 25 mg tablet 25 mg PO DAILY #30 tab 11/16/17 10/22/19 Rx amoxicillin 875 mg-potassium 1 tab PO BID #14 tab 10/24/19 Rx clavulanate 125 mg tablet (Augmentin) clindamycin HCl 300 mg capsule 300 mg PO TID #30 cap 06/24/20 Rx sulfamethoxazole 800 1 tab PO BID #20 tab 06/24/20 Rx mg-trimethoprim 160 mg tablet (Bactrim DS) sulfamethoxazole 800 1 tab PO BID #14 tab 07/17/20 Rx mg-trimethoprim 160 mg tablet (Bactrim DS) levetiracetam 500 mg tablet 1,500 mg PO BID 10/10/20 10/10/20 History cephalexin 500 mg capsule 500 mg PO TID #30 cap 10/11/20 Rx sulfamethoxazole 800 1 tab PO BID #20 tab 10/11/20 Rx mg-trimethoprim 160 mg tablet (Bactrim DS) Allergies Allergy/AdvReac Type Severity Reaction Status Date / Time morphine [MORPHINE] Allergy Severe mccann on Verified 10/10/20 20:34 skin Penicillins [PENICILLINS] AdvReac Severe vomiting Verified 10/10/20 20:34 Review of Systems Review of Systems Narrative: NEGATIVE UNLESS NOTED ABOVE IN HPI Exam Vital Signs (past 8 hours): - 01/27/21 06:28 01/27/21 08:40 01/27/21 08:41 Temperature 99.5 F Pulse Rate 106 H 86 85 Respiratory Rate 17 18 Blood Pressure 178/109 H 156/70 H Pulse Oximetry 99 94 95 01/27/21 09:00 01/27/21 09:30 01/27/21 09:31 Temperature Pulse Rate 94 H 97 H 96 H Respiratory Rate 18 20 18 Blood Pressure 153/71 H 140/59 L Pulse Oximetry 98 97 98 01/27/21 09:47 01/27/21 10:00 01/27/21 10:30 Temperature Pulse Rate 98 H 98 H 90 Respiratory Rate 18 16 16 Blood Pressure 156/74 H 157/72 H 149/77 H Pulse Oximetry 100 99 97 01/27/21 11:00 01/27/21 11:30 01/27/21 12:00 Temperature Pulse Rate 90 97 H 92 H Respiratory Rate 16 17 20 Blood Pressure 134/67 153/74 H 160/86 H Pulse Oximetry 96 94 97 01/27/21 12:42 01/27/21 13:07 Temperature 99.1 F 99.7 F H Pulse Rate 86 Respiratory Rate 16 Blood Pressure 126/85 Pulse Oximetry 96 Oxygen Delivery Method Room Air Oxygen Flow Rate 0 Narrative Exam Narrative: NO ACUTE DISTRESS. PATIENT IS ALERT ORIENTED X3. APPEARS OLDER THAN STATED AGE. POOR DENTITION VITAL SIGNS STABLE HEAD ATRAUMATIC NORMOCEPHALIC NECK : SUPPLE WITHOUT ADENOPATHY NO CAROTID BRUITS EYE: EOMI, PERRLA, NORMAL CONJUNCTIVA; NO JAUNDICE CHEST: REGULAR RATE. NO RUBS. PMI IS NON DISPLACED. NO MURMURS; NORMAL S1-S2 PULMONARY: DECREASED BS OVER THE BASES. MILD BIBASILAR CRACKLES NOTED; NO INCREASED DULLNESS TO PERCUSSION ABDOMEN: SOFT. NONTENDER. NONDISTENDED. BOWEL SOUNDS ARE PRESENT IN ALL 4 QUADRANTS. NO MASS. EXTREMITIES: SOME EDEMA NOTED TO THE RIGHT UPPER EXTREMITY. ONE AREA OF INDURATION ALSO NOTED ON THE MEDIAL ASPECT OF THE FOREARM. TENDER TO TOUCH. SENSATION IS INTACT NEURO: CRANIAL NERVES 2-12 GROSSLY INTACT. NO FOCAL NEUROLOGICAL DEFICIT NOTED. MSK: ADEQUATE ACTIVE AND PASSIVE RANGE OF MOTION FOR AGE. PAIN WITH EXTENSION AND FLEXION OF THE RIGHT FOREARM. SKIN: NORMAL FOR ETHNICITY; NO ECCHYMOSIS. NO LESION. GOOD TURGOR.; NO RASHES : NORMAL EXTERNAL GENITALIA. PSYCH : APPROPRIATE MOOD AND AFFECT. ALERT AWAKE ORIENTED X3 Objective Labs Result Diagrams: 01/27/21 07:35 01/27/21 07:35 Labs: Laboratory Results - last 24 hr 01/27/21 01/27/21 01/27/21 07:35 07:35 07:35 WBC 11.0 RBC 3.84 L Hgb 11.3 L Hct 32.0 L MCV 83.4 MCH 29.3 MCHC 35.2 RDW 14.2 Plt Count 195 Neut % (Auto) 76.8 H Lymph % (Auto) 13.5 L [place] % (Auto) 7.7 Eos % (Auto) 1.8 L Baso % (Auto) 0.2 Neut # (Auto) 8400 H Lymph # (Auto) 1500 [place] # (Auto) 800 Eos # (Auto) 200 Baso # (Auto) 0 Sodium 135 L Potassium 3.5 Chloride 99 Carbon Dioxide 31 BUN 17 Creatinine 0.75 Estimated GFR > 60.0 BUN/Creatinine Ratio 22.7 H Glucose 111 H Lactate 0.7 Calcium 8.7 Total Bilirubin 0.4 AST 26 ALT 18 Alkaline Phosphatase 76 Total Creatine Kinase Total Protein 7.7 Albumin 3.5 Globulin 4.2 H Albumin/Globulin Ratio 0.8 L Procalcitonin 0.13 SARS-CoV-2 (PCR) 01/27/21 01/27/21 07:35 07:40 WBC RBC Hgb Hct MCV MCH MCHC RDW Plt Count Neut % (Auto) Lymph % (Auto) [place] % (Auto) Eos % (Auto) Baso % (Auto) Neut # (Auto) Lymph # (Auto) [place] # (Auto) Eos # (Auto) Baso # (Auto) Sodium Potassium Chloride Carbon Dioxide BUN Creatinine Estimated GFR BUN/Creatinine Ratio Glucose Lactate Calcium Total Bilirubin AST ALT Alkaline Phosphatase Total Creatine Kinase 121 Total Protein Albumin Globulin Albumin/Globulin Ratio Procalcitonin SARS-CoV-2 (PCR) Negative Assessment & Plan Assessment & Plan narrative: PROBLEM LIST RIGHT UPPER EXTREMITY CELLULITIS. POSSIBLE DEVELOPING MYOSITIS NOTED ON CT SCAN. CONSIDER DEVELOPING ABSCESS WELL ANEMIA. TYPE IS UNCLEAR COULD BE OF CHRONIC DISEASE ILLICIT DRUG USE. COUNSELING GIVEN ALCOHOL ABUSE. COUNSELING GIVEN TOBACCO ABUSE. COUNSELING GIVEN WELL POSSIBLE HYPERTENSION PER HISTORY POSSIBLE ANXIETY FOR HISTORY POSSIBLE SEIZURE DISORDERS PER HISTORY PLAN PATIENT WILL BE STARTED ON ANTIBIOTICS WITH VANCOMYCIN, CEFEPIME, FLAGYL. CONSIDER ADDING CLINDAMYCIN TO COVER FOR STREPTOCOCCUS TOXIN WELL IF INDICATED CHECK CPK WILL REFER TO ORTHOPEDIC SURGERY FOR FURTHER RECOMMENDATIONS WILL MAKE NPO AFTER MIDNIGHT WILL ALSO REPEAT CT SCAN IN THE MORNING DAILY LAB TO FOLLOW DAILY CPK LEVEL TO FOLLOW WELL DUE TO HISTORY OF SUBSTANCE ABUSE, IV AND ORAL MEDICATION WILL BE ORDERED NEEDED TO HELP SYMPTOMATICALLY WILL ORDER ON NICOTINE PATCH STRONG HISTORY OF ALCOHOL ABUSE ALSO REPORTED WILL START ON LIBRIUM T.I.D. ON ATIVAN IV NEEDED LOVENOX FOR DVT PROPHYLAXIS UNLESS OTHERWISE RECOMMENDED BY SURGICAL TEAM ONCE ON BOARD ADDITIONAL MANAGEMENT PER CLINICAL COURSE PROGNOSIS IS GUARDED Time Spent With Patient Critical Care time: I spent a total of [] minutes of critical care time on this patient's care today; this time is exclusive of procedural time. Quality VTE Deep Vein Thrombosis/Pulmonary Embolism Present on Admission: No
[2021-01-27] MEDS: VANCOMYCIN 1,000 MG/200 ML PIGGYBACK 200 MG IV ×2 (14:47→20:45)
[2021-01-27] MEDS: NICOTINE 21 MG PATCH TOP (14:59)
--- NOTE | 2021-01-27 15:05 | PC.NURSE ---
Day shift: Pt asleep and woke up for approx 20 seconds for meds and Nicotine patch applied. Pt asleep with no signs of pain or discomfort at this time. Ok with Dr Rishabh fonseca Pt did not take any PO meds at this time. When Pt awakes enough to take they can be given. I.S. in room but Pt not awake enough for teachings. Call light in reach.
[2021-01-27] MEDS: chlordiazePOXIDE 25 MG CAPSULE PO ×2 (17:03→20:44)
[2021-01-27] MEDS: GABAPENTIN 300 MG CAPSULE PO ×2 (17:03→21:13)
[2021-01-27] MEDS: TRAMADOL 50 MG TABLET PO (17:03)
[2021-01-27] MEDS: SODIUM CHLORIDE 0.9% 250 ML 21 ML IV (17:28)
--- NOTE | 2021-01-27 18:37 | PC.NURSE ---
Day shift: Pt sleeping at this time. No s/s of pain or discomfort. He did not wake for dinner. IV site remains patent and NS running at [facility].
[2021-01-27] MEDS: SENNOSIDES 8.6 MG TABLET 17.2 MG PO (20:44)
[2021-01-27] MEDS: SODIUM CHLORIDE 0.9% FLUSH 10 ML IV (20:45)
--- NOTE | 2021-01-28 01:15 | PC.NURSE ---
Addendum entered by Felisa Oviedo R.N. 01/28/21 03:55: PICC nurse placed double lumen midline to left upper arm, patient tolerated well. Original Note: I went to patients room to give IV medications as ordered, at the time patient was sitting up in bed coughing. Found midline catheter on the floor, catheter tip intact. When asked how it came out, patient laid down in bed and went back to sleep without answering. Norberto NEIL notified and Charge nurse notified.
[2021-01-28] MEDS: DEXTROSE 5%-0.45NS W/KCL 20MEQ 1,000 ML 100 MEQ IV ×3 (02:39→21:09)
[2021-01-28] MEDS: CEFEPIME 1 GM in SODIUM CHLORIDE 0.9% 100 ML 200 ML IV ×3 (02:40→12:52)
[2021-01-28] MEDS: VANCOMYCIN 1,000 MG/200 ML PIGGYBACK 200 MG IV ×2 (03:17→10:13)
[2021-01-28 04:10] VITALS: BP 143/92; PULSE 94; RESP 16; TEMP 36.8; O2SAT 98
[2021-01-28 06:22] LABS: Add Manual Diff / Slide Review NO; Basophils Absolute Auto 0 /uL (0-100); Basophils Percent Auto 0.3 % (0-2); Eosinophils Absolute Auto 100 /uL (0-450); Eosinophils Percent Auto 0.8 % (2-4); Hematocrit 35.6 % (41-53); Hemoglobin 12.1 g/dL (13.5-17.5); Lymphocytes Absolute Auto 1400 /uL (1100-4500); Lymphocytes Percent Auto 16.3 % (25-40); Mean Corpuscular HGB Conc 33.8 % (30-36); Mean Corpuscular Hemoglobin 28.6 PG (26-34); Mean Corpuscular Volume 84.6 fL (80-100); Monocytes Absolute Auto 500 /uL (0-900); Monocytes Percent Auto 6.1 % (3-14); Neutrophils Absolute Auto 6700 /uL (1500-7000); Neutrophils Percent Auto 76.5 % (50-75); Platelet Count 231 X10^3/uL (150-400); Red Blood Cell Count 4.21 X10^6/uL (4.5-5.9); Red Cell Distribution Width 13.8 % (11.6-14.8); White Blood Cell Count 8.8 X10^3/uL (4.5-11.0)
[2021-01-28 06:54] LABS: Creatine Kinase 50 U/L (55-170)
--- NOTE | 2021-01-28 07:00 | DI.CT.S_ITS ---
PROCEDURE: CT UE RT WO/W CON INDICATIONS: POSSIBLE RIGHT UPPER EXTREMITY ABSCESS TECHNIQUE: After the administration of intravenous contrast, 3 mm axial sections acquired of the right upper extremity , with coronal and sagittal reformats. COMPARISON: [facility], CT, CT UE RT W CON, 01/27/2021, 9:43. FINDINGS: Image quality: Excellent. Bones: No fracture or dislocation Soft tissues: There is circumferential soft tissue swelling the right arm mostly around the region of the distal humerus and forearm. No soft tissue gas. No radiopaque foreign bodies. No fluid collection to suggest abscess. A previously described 9 mm hypoattenuating focus in the antecubital fossa is no longer visualized. There is no soft tissue abscess. IMPRESSION: 1. Soft tissue edema consistent with cellulitis. 2. No abscess. Dictated by: Brennen Howard M.D. on 01/28/2021 at 9:50 Approved by: Brennen Howard M.D. on 01/28/2021 at 10:04
[2021-01-28 07:07] LABS: Alanine Aminotransferase 18 IU/L (<50); Albumin 3.4 g/dL (3.5-5.0); Albumin Globulin Ratio 0.8 (1.0-2.8); Alkaline Phosphatase 83 U/L (38-126); Aspartate Aminotransferase 24 IU/L (17-59); BUN Creatinine Ratio 13.4 (6-22); Bilirubin Total 0.4 mg/dL (0.2-1.3); Blood Urea Nitrogen 9 mg/dL (9-20); Calcium 9.1 mg/dL (8.4-10.2); Carbon Dioxide 29 mmol/L (22-32); Chloride 104 mmol/L (98-107); Estimated Glomerular Filt Rate > 60.0 mL/min (>60); Globulin 4.2 g/dL (1.7-4.1); Glucose 117 mg/dL (70-100); HEMOLYSIS < 15 (0-50); Potassium 3.7 mmol/L (3.4-5.1); Sodium 139 mmol/L (137-145); Total Protein 7.6 g/dL (6.3-8.2)
[2021-01-28 08:00] VITALS: BP 153/89; PULSE 97; RESP 18; TEMP 37.1; O2SAT 97
[2021-01-28] MEDS: LORazepam 2 MG/ML INJ 1 MG IV ×4 (09:00→23:38)
[2021-01-28] MEDS: ENOXAPARIN 40 MG/0.4 ML SYRINGE SUBCUT (09:11)
[2021-01-28] MEDS: NICOTINE 21 MG PATCH TOP (09:11)
[2021-01-28 09:49] LABS: Vancomycin Trough 17.8 ug/mL (10-20)
[2021-01-28] MEDS: HYDROMORPHONE 1 MG INJ IV ×3 (10:17→19:57)
[2021-01-28] MEDS: SODIUM CHLORIDE 0.9% FLUSH 10 ML IV ×2 (10:18→21:11)
--- NOTE | 2021-01-28 10:50 | PC.NURSE ---
Morning Shift Note Per MD to hold on PO medications until CT scan results.
[2021-01-28 11:20] VITALS: BP 155/90; PULSE 104; RESP 20; TEMP 37.4; O2SAT 96
--- NOTE | 2021-01-28 11:49 | CM.DANOTE ---
DCP Assessment: Patient is a 40 yr old male who was admitted to the hospital for cellulites of the hand . patient is an self described IV drug user with no plans on stopping. Cm met with patient at the bedside and explained role. patient was drowsy and didn't open his eyes when CM was in the room but was responding appropriately to questions asked. patient states he is currently homeless and moves around friends houses sleeping on their couches. CM asked patient about his IV drug use and he stated yes i use drugs, I inject them and have no intention in stopping when CM asked if he wanted information to review at all about possible resources to help he told CM NO and to get out. CM left the patients room with the intention of following up assessment. CM followed up earlier meeting with the patient. patient was still not very awake but was able to communicate and answer questions appropriately. Patient may need surgical intervention and pending blood cultures to determine IV abx vs Oral ABX. Patient stated he does not want to go to a SNF if he needs IV ABX he wants to go back to the street and wants to use. CM explained that the patient may need IV abx and if that is the case he will need either to stay in the hospital or SNF to get his full does of IV abx if it is needed. Patient just repeated he will not go to SNF. CM will follow the patient to work on DC plan depending on CT results, surgical consultation and Blood cultures to determine if IV abx will be needed or not. I Medicare and medicaid Plan: DC back to the streets on oral Abx or if IV abx needed plan for patient to get full IV abx dosage he does not want SNF, and is an active IV drug user so OP IV abx therapy not an option. CM will continue to follow to work on appropriate DC plan for the patient once determined if patient will need surgery and IV abx or not. Mary Palencia RN Case Manger Discharge Planning/Care Management Advanced directive, confirm from FAMILY Start: 01/27/21 13:24 Freq: Q24H Status: Active Protocol: Document 01/27/21 13:44 YAD (Rec: 01/27/21 13:46 YAD [id number]) Advance Directive, confirm on record Time 13:46 Person contacted patient Copy received No CM Discharge Assessment Start: 01/28/21 11:32 Freq: Status: Active Protocol: Document 01/28/21 11:32 HS (Rec: 01/28/21 11:40 HS [id number]) Discharge Planning Assessment Assigned Livestock Commission Agent Mary Palencia RN Case Manger DPOA/Assigned Designee Name Mother- Karime Marc Contact Information [phone] Advance Directives? No Advance Directives on File No History Provided By Patient,Medical Record Has Patient been admitted in last 30 No days? Prior Living Arrangements Homeless Comment patient is homeless but goes from friends house to friends house sleeping on their couches. Household Members none Type of transporation used prior to Relies on Others admit Comment kenn stated he can drive but doesn't and has friends who provide him transportation Independent with ADL's Yes Is patient alert and oriented? No: Patient was very groggy was clear with his answers but seemed very medicate Caregiver for Another No Patient/Family Preference Drug/Alcohol Rehab Comment patient refuses Drug an Alcohol rehab infromation or support group information. Barriers to Discharge Yes Comment Patient is IV drug user and MD and CM agree that kenn can 't be DC on IV abx. will need to wait until blood cultures come back to determine what ABX is needed and if it can be po or if it needs to be IV. Referrals Initiated None needed Whiteboard Updated in Patient Room with Yes name and ext. # of Livestock Commission Agent Review Status In Process Next Review Type Continued Stay Review
[2021-01-28] MEDS: VANCOMYCIN PEAK 1 REQUEST MISC (15:08)
[2021-01-28 15:15] VITALS: BP 147/90; PULSE 94; RESP 22; TEMP 37.9; O2SAT 95
--- NOTE | 2021-01-28 15:41 | PM.PN.1 ---
Subjective Subjective Interval history: BRIEF HISTORY IV DRUG USER PATIENT ADMITTED FOR CELLULITIS OF THE RIGHT FOREARM TODAY. CONTINUE TO HAVE SOME PAIN TO THE RIGHT FOREARM. REQUESTING OPIOID MEDICATIONS ALSO REPORTED FEELING THAT HE WAS GOING INTO WITHDRAWAL DENIES ANY CHEST PAIN. NO SHORTNESS OF BREATH NO NAUSEA OR VOMITING NO DIARRHEA NO SIGNIFICANT ISSUES OVERNIGHT REPORTED BY NURSING STAFF Exam Vital Signs (past 8 hours): - 01/28/21 08:00 01/28/21 11:20 01/28/21 15:15 Temperature 98.7 F 99.3 F 100.2 F H Pulse Rate 97 H 104 H 94 H Respiratory Rate 18 20 22 Blood Pressure 153/89 H 155/90 H 147/90 H Pulse Oximetry 97 96 95 Oxygen Delivery Method Room Air Oxygen Flow Rate 0 Narrative Exam Narrative: NO ACUTE DISTRESS.? PATIENT IS ALERT ORIENTED X3.? APPEARS OLDER THAN STATED AGE.? POOR DENTITION VITAL SIGNS STABLE HEAD ATRAUMATIC NORMOCEPHALIC NECK : SUPPLE WITHOUT ADENOPATHY NO CAROTID BRUITS EYE:? EOMI, PERRLA, NORMAL CONJUNCTIVA; NO JAUNDICE CHEST:? REGULAR RATE.? ? NO RUBS.? PMI IS NON DISPLACED.? NO MURMURS; NORMAL S1-S2 PULMONARY:? DECREASED BS OVER THE BASES.? MILD BIBASILAR CRACKLES NOTED; NO INCREASED DULLNESS TO PERCUSSION ABDOMEN:? SOFT.? NONTENDER.? NONDISTENDED.? BOWEL SOUNDS ARE PRESENT IN ALL 4 QUADRANTS.? NO MASS. EXTREMITIES:? SOME EDEMA NOTED TO THE RIGHT UPPER EXTREMITY.? ONE AREA OF INDURATION ALSO NOTED ON THE MEDIAL ASPECT OF THE FOREARM.? TENDER TO TOUCH.? SENSATION INTACT NEURO:? CRANIAL NERVES 2-12 GROSSLY INTACT. NO FOCAL NEUROLOGICAL DEFICIT NOTED. MSK:? ADEQUATE ACTIVE AND PASSIVE RANGE OF MOTION FOR AGE.? PAIN WITH EXTENSION AND FLEXION OF THE RIGHT ? FOREARM. SKIN:? NORMAL FOR ETHNICITY; NO ECCHYMOSIS.? NO LESION. ? GOOD? TURGOR.; NO RASHES :? NORMAL EXTERNAL GENITALIA. PSYCH :? APPROPRIATE MOOD AND AFFECT.? ALERT AWAKE ORIENTED X3 Objective Labs Result Diagrams: 01/28/21 06:00 01/28/21 06:00 Labs: Laboratory Results - last 24 hr 01/28/21 01/28/21 01/28/21 06:00 06:00 06:00 WBC 8.8 RBC 4.21 L Hgb 12.1 L Hct 35.6 L MCV 84.6 MCH 28.6 MCHC 33.8 RDW 13.8 Plt Count 231 Neut % (Auto) 76.5 H Lymph % (Auto) 16.3 L [place] % (Auto) 6.1 Eos % (Auto) 0.8 L Baso % (Auto) 0.3 Neut # (Auto) 6700 Lymph # (Auto) 1400 [place] # (Auto) 500 Eos # (Auto) 100 Baso # (Auto) 0 Sodium 139 Potassium 3.7 Chloride 104 Carbon Dioxide 29 BUN 9 Creatinine 0.67 Estimated GFR > 60.0 BUN/Creatinine Ratio 13.4 Glucose 117 H Calcium 9.1 Total Bilirubin 0.4 AST 24 ALT 18 Alkaline Phosphatase 83 Total Creatine Kinase 50 L Total Protein 7.6 Albumin 3.4 L Globulin 4.2 H Albumin/Globulin Ratio 0.8 L Vancomycin Trough 01/28/21 08:24 WBC RBC Hgb Hct MCV MCH MCHC RDW Plt Count Neut % (Auto) Lymph % (Auto) [place] % (Auto) Eos % (Auto) Baso % (Auto) Neut # (Auto) Lymph # (Auto) [place] # (Auto) Eos # (Auto) Baso # (Auto) Sodium Potassium Chloride Carbon Dioxide BUN Creatinine Estimated GFR BUN/Creatinine Ratio Glucose Calcium Total Bilirubin AST ALT Alkaline Phosphatase Total Creatine Kinase Total Protein Albumin Globulin Albumin/Globulin Ratio Vancomycin Trough 17.8 [facility] Medical History (Updated 01/27/21 @ 10:49 by Mike Powell DO) Epilepsy Hypertension Opioid use disorder Surgical History No pertinent past surgical history Social History household members: none Smoking Status: Current every day smoker alcohol intake: current Assessment & Plan Assessment & Plan narrative: PROBLEM LIST RIGHT UPPER EXTREMITY CELLULITIS.? POSSIBLE DEVELOPING MYOSITIS NOTED ON CT SCAN. ABSCESS RULED OUT ANEMIA.? TYPE IS UNCLEAR. COULD BE OF CHRONIC DISEASE ILLICIT DRUG USE.? COUNSELING GIVEN ALCOHOL ABUSE.? COUNSELING GIVEN TOBACCO ABUSE.? COUNSELING GIVEN WELL POSSIBLE HYPERTENSION PER HISTORY POSSIBLE ANXIETY FOR HISTORY POSSIBLE SEIZURE DISORDERS PER HISTORY MEDICAL NONCOMPLIANCE. COUNSELING GIVEN PLAN 01/28 CONTINUE CURRENT MANAGEMENT FOR NOW PATIENT IS ON VANCOMYCIN, CEFEPIME WELL FLAGYL AGAIN WILL CONSIDER ADDING CLINDAMYCIN P.O. DAILY NEXT [address] INDIC[address] CLIN[address]ALLY [address] SCAN REPEATED TODAY AND WAS NEGATIVE FOR DEVELOPING ABSCESS NO SURGICAL INTERVENTION INDICATED AT THIS TIME WILL LIKELY START TO DEESCALATE ANTIBIOTIC THERAPY OVER THE NEXT 24 HOURS MONITOR CLOSELY FOR ANY SIGNS OF C DIFF COLITIS WHILE ON ANTIBIOTIC THERAPY MONITOR CLOSELY FOR SIGNS OF WITHDRAWAL IN REGARD TO SUBSTANCE ABUSE PATIENT WILL BE RESTARTED ON ORAL INTAKE ADDITIONAL MANAGEMENT PER CLINICAL COURSE 01/27 PATIENT WILL BE STARTED ON ANTIBIOTICS WITH VANCOMYCIN, CEFEPIME, FLAGYL. CONSIDER ADDING CLINDAMYCIN TO COVER FOR STREPTOCOCCUS TOXIN WELL IF INDICATED CHECK CPK WILL REFER TO ORTHOPEDIC SURGERY FOR FURTHER RECOMMENDATIONS WILL MAKE NPO AFTER MIDNIGHT WILL ALSO REPEAT CT SCAN IN THE MORNING DAILY LAB TO FOLLOW DAILY CPK LEVEL TO FOLLOW WELL DUE TO HISTORY OF SUBSTANCE ABUSE, IV AND ORAL MEDICATION WILL BE ORDERED NEEDED TO HELP SYMPTOMATICALLY WILL ORDER ON NICOTINE PATCH STRONG HISTORY OF ALCOHOL ABUSE ALSO REPORTED WILL START ON LIBRIUM T.I.D. ON ATIVAN IV NEEDED LOVENOX FOR DVT PROPHYLAXIS UNLESS OTHERWISE RECOMMENDED BY SURGICAL TEAM ONCE ON BOARD ADDITIONAL MANAGEMENT PER CLINICAL COURSE PROGNOSIS IS GUARDED Time Spent With Patient Critical Care time: I spent a total of [] minutes of critical care time on this patient's care today; this time is exclusive of procedural time. Quality VTE Deep Vein Thrombosis/Pulmonary Embolism Present on Admission: No
[2021-01-28 16:08] LABS: Vancomycin Peak 28.6 ug/mL (20-40)
[2021-01-28] MEDS: LACTOBACILLUS ACIDOPHILUS TABLET 1 EACH PO (16:39)
[2021-01-28] MEDS: GABAPENTIN 300 MG CAPSULE PO ×2 (16:39→21:10)
[2021-01-28] MEDS: chlordiazePOXIDE 25 MG CAPSULE PO ×2 (16:39→21:11)
[2021-01-28] MEDS: TRAMADOL 50 MG TABLET PO ×2 (16:39→21:10)
[2021-01-28] MEDS: metroNIDAZOLE 500 MG TABLET PO ×2 (16:39→21:10)
[2021-01-28 19:45] VITALS: O2SAT 95
[2021-01-28] MEDS: VANCOMYCIN 1,250 MG/250 ML PIGGYBACK 250 MG IV (19:46)
[2021-01-28 20:10] VITALS: BP 177/95; PULSE 102; RESP 14; TEMP 37.4; O2SAT 99
[2021-01-28] MEDS: MELATONIN 3 MG TABLET 6 MG PO (21:10)
[2021-01-28] MEDS: TRAZODONE 100 MG TABLET PO (21:10)
[2021-01-28] MEDS: SENNOSIDES 8.6 MG TABLET 17.2 MG PO (21:11)
[2021-01-29] MEDS: HYDROMORPHONE 1 MG INJ IV (01:34)
[2021-01-29 01:38] VITALS: BP 161/111; PULSE 85; RESP 20; TEMP 37.5; O2SAT 94
[2021-01-29] MEDS: VANCOMYCIN 1,250 MG/250 ML PIGGYBACK 250 MG IV ×2 (03:39→18:31)
[2021-01-29] MEDS: LORazepam 2 MG/ML INJ 1 MG IV (03:47)
[2021-01-29 06:07] LABS: Add Manual Diff / Slide Review NO; Basophils Absolute Auto 0 /uL (0-100); Basophils Percent Auto 0.3 % (0-2); Eosinophils Absolute Auto 0 /uL (0-450); Eosinophils Percent Auto 0.3 % (2-4); Hematocrit 34.1 % (41-53); Hemoglobin 11.4 g/dL (13.5-17.5); Lymphocytes Absolute Auto 1300 /uL (1100-4500); Mean Corpuscular HGB Conc 33.3 % (30-36); Mean Corpuscular Hemoglobin 28.4 PG (26-34); Mean Corpuscular Volume 85.3 fL (80-100); Monocytes Absolute Auto 400 /uL (0-900); Monocytes Percent Auto 7.4 % (3-14); Neutrophils Absolute Auto 4300 /uL (1500-7000); Platelet Count 235 X10^3/uL (150-400); Red Cell Distribution Width 13.3 % (11.6-14.8); White Blood Cell Count 6.1 X10^3/uL (4.5-11.0)
[2021-01-29 07:45] VITALS: BP 156/110; PULSE 87; RESP 18; TEMP 37.1; O2SAT 96
[2021-01-29] MEDS: SODIUM CHLORIDE 0.9% FLUSH 10 ML IV ×2 (09:02→21:08)
[2021-01-29] MEDS: NICOTINE 21 MG PATCH TOP (09:02)
[2021-01-29] MEDS: DEXTROSE 5%-0.45NS W/KCL 20MEQ 1,000 ML 100 MEQ IV (09:11)
[2021-01-29] MEDS: TRAMADOL 50 MG TABLET PO ×3 (09:21→21:06)
[2021-01-29] MEDS: GABAPENTIN 300 MG CAPSULE PO ×3 (09:21→21:07)
[2021-01-29] MEDS: chlordiazePOXIDE 25 MG CAPSULE PO ×3 (09:21→21:07)
[2021-01-29] MEDS: metroNIDAZOLE 500 MG TABLET PO ×3 (09:21→21:07)
[2021-01-29] MEDS: LACTOBACILLUS ACIDOPHILUS TABLET 1 EACH PO (09:21)
[2021-01-29 11:00] VITALS: PULSE 89; RESP 18; TEMP 37.7; O2SAT 94
[2021-01-29 11:24] VITALS: BP 147/93
--- NOTE | 2021-01-29 13:12 | PM.PN.1 ---
Subjective Subjective Date Patient Seen: 01/29/21 Interval history: BRIEF HISTORY IV DRUG USER PATIENT ADMITTED FOR CELLULITIS OF THE RIGHT FOREARM TODAY. NURSING REPORTED PATIENT PULLED OUT HIS IV ONCE AGAIN PATIENT DENIES ANY INCREASING CONFUSION CONTINUES TO REPORT FEELING THAT HE IS GOING TO WITHDRAWAL DENIES ANY CHEST PAIN. NO SHORTNESS OF BREATH NO NAUSEA OR VOMITING NO DIARRHEA NO SIGNIFICANT ISSUES OVERNIGHT REPORTED BY NURSING STAFF Exam Vital Signs (past 8 hours): - 01/29/21 07:45 01/29/21 11:00 01/29/21 11:24 Temperature 98.8 F 99.8 F H Pulse Rate 87 89 Respiratory Rate 18 18 Blood Pressure 156/110 H 147/93 H Pulse Oximetry 96 94 Oxygen Delivery Method Room Air Oxygen Flow Rate 0 Narrative Exam Narrative: NO ACUTE DISTRESS.? PATIENT IS ALERT ORIENTED X3.? APPEARS OLDER THAN STATED AGE.? POOR DENTITION VITAL SIGNS STABLE HEAD ATRAUMATIC NORMOCEPHALIC NECK : SUPPLE WITHOUT ADENOPATHY NO CAROTID BRUITS EYE:? EOMI, PERRLA, NORMAL CONJUNCTIVA; NO JAUNDICE CHEST:? REGULAR RATE.? ? NO RUBS.? PMI IS NON DISPLACED.? NO MURMURS; NORMAL S1-S2 PULMONARY:? DECREASED BS OVER THE BASES.? MILD BIBASILAR CRACKLES NOTED; NO INCREASED DULLNESS TO PERCUSSION ABDOMEN:? SOFT.? NONTENDER.? NONDISTENDED.? BOWEL SOUNDS ARE PRESENT IN ALL 4 QUADRANTS.? NO MASS. EXTREMITIES:? SOME EDEMA NOTED TO THE RIGHT UPPER EXTREMITY.? ONE AREA OF INDURATION ALSO NOTED ON THE MEDIAL ASPECT OF THE FOREARM.? TENDER TO TOUCH.? SENSATION INTACT NEURO:? CRANIAL NERVES 2-12 GROSSLY INTACT. NO FOCAL NEUROLOGICAL DEFICIT NOTED. MSK:? ADEQUATE ACTIVE AND PASSIVE RANGE OF MOTION FOR AGE.? PAIN WITH EXTENSION AND FLEXION OF THE RIGHT ? FOREARM. SKIN:? SKIN TRACKING APPRECIATED. REDNESS TO RIGHT UPPER MEDIAL ASPECT OF THE FOREARM :? NORMAL EXTERNAL GENITALIA. PSYCH :? APPROPRIATE MOOD AND AFFECT.? ALERT AWAKE ORIENTED X3 Objective Labs Result Diagrams: 01/29/21 05:40 01/28/21 06:00 Labs: Laboratory Results - last 24 hr 01/28/21 01/29/21 15:05 05:40 WBC 6.1 RBC 4.00 L Hgb 11.4 L Hct 34.1 L MCV 85.3 MCH 28.4 MCHC 33.3 RDW 13.3 Plt Count 235 Neut % (Auto) 71.0 Lymph % (Auto) 21.0 L [place] % (Auto) 7.4 Eos % (Auto) 0.3 L Baso % (Auto) 0.3 Neut # (Auto) 4300 Lymph # (Auto) 1300 [place] # (Auto) 400 Eos # (Auto) 0 Baso # (Auto) 0 Vancomycin Peak 28.6 PFSH Medical History (Updated 01/27/21 @ 10:49 by Mike Powell DO) Epilepsy Hypertension Opioid use disorder Surgical History No pertinent past surgical history Social History household members: none Smoking Status: Current every day smoker alcohol intake: current Assessment & Plan Assessment & Plan narrative: PROBLEM LIST RIGHT UPPER EXTREMITY CELLULITIS.? STREPTOCOCCUS ON CULTURE. POSSIBLE MYOSITIS NOTED ON CT SCAN.? ABSCESS RULED OUT; ON ANTIBIOTICS ANEMIA.? TYPE IS UNCLEAR.? COULD BE OF CHRONIC DISEASE ILLICIT DRUG USE.? COUNSELING GIVEN ALCOHOL ABUSE.? COUNSELING GIVEN TOBACCO ABUSE.? COUNSELING GIVEN WELL POSSIBLE HYPERTENSION PER HISTORY POSSIBLE ANXIETY FOR HISTORY POSSIBLE SEIZURE DISORDERS PER HISTORY MEDICAL NONCOMPLIANCE.? COUNSELING GIVEN PLAN 01/29 WILL ORDER PICC LINE TODAY TO REPLACE THE MIDLINE CONTINUE IV ANTIBIOTICS WELL WILL AGAIN CONSIDER ADDING CLINDAMYCIN HOWEVER THIS COULD BE DONE ON DISPOSITION LABS REMAIN STABLE FOLLOW SIGNS REMAINED STABLE WELL WILL START TAPERING ANTIBIOTIC THERAPY OVER THE NEXT 24-48 HOURS TO ORAL ANTIBIOTICS ONCE INDICATED FOLLOW LABS DAILY MONITOR FOR SIGN AND SYMPTOMS OF C DIFF COLITIS ADDITIONAL MANAGEMENT PER CLINIC RAFIA 01/28 CONTINUE CURRENT MANAGEMENT FOR NOW PATIENT IS ON VANCOMYCIN, CEFEPIME WELL FLAGYL AGAIN WILL CONSIDER ADDING CLINDAMYCIN P.O. DAILY NEXT [address] IF INDICATED CLINICALLY [address] SCAN REPEATED TODAY AND WAS NEGATIVE FOR DEVELOPING ABSCESS NO SURGICAL INTERVENTION INDICATED AT THIS TIME WILL LIKELY START TO DEESCALATE ANTIBIOTIC THERAPY OVER THE NEXT 24 HOURS MONITOR CLOSELY FOR ANY SIGNS OF C DIFF COLITIS WHILE ON ANTIBIOTIC THERAPY MONITOR CLOSELY FOR SIGNS OF WITHDRAWAL IN REGARD TO SUBSTANCE ABUSE PATIENT WILL BE RESTARTED ON ORAL INTAKE ADDITIONAL MANAGEMENT PER CLINICAL COURSE 01/27 PATIENT WILL BE STARTED ON ANTIBIOTICS WITH VANCOMYCIN, CEFEPIME, FLAGYL. CONSIDER ADDING CLINDAMYCIN TO COVER FOR STREPTOCOCCUS TOXIN WELL IF INDICATED CHECK CPK WILL REFER TO ORTHOPEDIC SURGERY FOR FURTHER RECOMMENDATIONS WILL MAKE NPO AFTER MIDNIGHT WILL ALSO REPEAT CT SCAN IN THE MORNING DAILY LAB TO FOLLOW DAILY CPK LEVEL TO FOLLOW WELL DUE TO HISTORY OF SUBSTANCE ABUSE, IV AND ORAL MEDICATION WILL BE ORDERED NEEDED TO HELP SYMPTOMATICALLY WILL ORDER ON NICOTINE PATCH STRONG HISTORY OF ALCOHOL ABUSE ALSO REPORTED WILL START ON LIBRIUM T.I.D. ON ATIVAN IV NEEDED LOVENOX FOR DVT PROPHYLAXIS UNLESS OTHERWISE RECOMMENDED BY SURGICAL TEAM ONCE ON BOARD ADDITIONAL MANAGEMENT PER CLINICAL COURSE PROGNOSIS IS GUARDED Time Spent With Patient Critical Care time: I spent a total of [] minutes of critical care time on this patient's care today; this time is exclusive of procedural time. Quality VTE Deep Vein Thrombosis/Pulmonary Embolism Present on Admission: No
[2021-01-29 15:35] VITALS: BP 150/123; PULSE 95; RESP 18; TEMP 37.6; O2SAT 96
[2021-01-29] MEDS: CEFEPIME 1 GM in SODIUM CHLORIDE 0.9% 100 ML 200 ML IV (19:46)
[2021-01-29] MEDS: MELATONIN 3 MG TABLET 6 MG PO (21:07)
[2021-01-29] MEDS: SENNOSIDES 8.6 MG TABLET 17.2 MG PO (21:08)
[2021-01-29] MEDS: TRAZODONE 100 MG TABLET PO (21:08)
[2021-01-29 21:10] VITALS: BP 155/105; PULSE 92; RESP 20; TEMP 37.4; O2SAT 96
--- NOTE | 2021-01-29 21:43 | PC.NURSE ---
Addendum entered by Teresa France R.N. 01/30/21 06:12: Has had low grade temp all night and is up to 100.4 this morning so medicated with Tylenol. Original Note: Patient is oriented but with flat affect and offers minimal responses to questions asked. Breath sounds CTA with RA sat of 96%. HRR but tachy at 100 bpm and has elevated BP of 155/105 which is consistent with previous recordings. Denied nausea. BT present and abdomen is soft. Voiding per urinal and is without dysuria. Is able to move himself in bed. Complained of 7/10 right arm/shoulder/wrist pain and was medicated with scheduled Tramadol and Gabapentin. No obvious signs of withdrawl at this time. Refused SCD's so reminded to ankle wave. Fall risk score is moderate and bed alarm is activated.
[2021-01-30] VITALS (9 sets, daily range): BP systolic 136–165; BP diastolic 94–125; PULSE 78–97; RESP 16–18; TEMP 36.8–38; O2SAT 94–98
[2021-01-30] MEDS: VANCOMYCIN 1,250 MG/250 ML PIGGYBACK 250 MG IV ×3 (03:10→19:34)
[2021-01-30] MEDS: SODIUM CHLORIDE 0.9% FLUSH 10 ML IV ×3 (05:22→20:49)
[2021-01-30] MEDS: HYDROMORPHONE 1 MG INJ IV (05:35)
[2021-01-30 06:00] LABS: Add Manual Diff / Slide Review NO; Basophils Absolute Auto 0 /uL (0-100); Basophils Percent Auto 0.4 % (0-2); Eosinophils Absolute Auto 0 /uL (0-450); Eosinophils Percent Auto 0.6 % (2-4); Hematocrit 38.3 % (41-53); Hemoglobin 13.5 g/dL (13.5-17.5); Lymphocytes Absolute Auto 1600 /uL (1100-4500); Lymphocytes Percent Auto 23.7 % (25-40); Mean Corpuscular HGB Conc 35.2 % (30-36); Mean Corpuscular Hemoglobin 29.1 PG (26-34); Mean Corpuscular Volume 82.7 fL (80-100); Monocytes Absolute Auto 500 /uL (0-900); Monocytes Percent Auto 6.5 % (3-14); Neutrophils Absolute Auto 4800 /uL (1500-7000); Neutrophils Percent Auto 68.8 % (50-75); Platelet Count 272 X10^3/uL (150-400); Red Blood Cell Count 4.64 X10^6/uL (4.5-5.9); Red Cell Distribution Width 13.5 % (11.6-14.8); White Blood Cell Count 6.9 X10^3/uL (4.5-11.0)
[2021-01-30 06:05] LABS: Creatine Kinase 26 U/L (55-170)
[2021-01-30 06:07] LABS: Alanine Aminotransferase 18 IU/L (<50); Albumin 3.9 g/dL (3.5-5.0); Albumin Globulin Ratio 0.8 (1.0-2.8); Alkaline Phosphatase 86 U/L (38-126); Aspartate Aminotransferase 26 IU/L (17-59); BUN Creatinine Ratio 7.2 (6-22); Bilirubin Total 0.4 mg/dL (0.2-1.3); Blood Urea Nitrogen 5 mg/dL (9-20); Calcium 9.7 mg/dL (8.4-10.2); Carbon Dioxide 28 mmol/L (22-32); Chloride 104 mmol/L (98-107); Estimated Glomerular Filt Rate > 60.0 mL/min (>60); Globulin 4.7 g/dL (1.7-4.1); Glucose 105 mg/dL (70-100); HEMOLYSIS < 15 (0-50); Potassium 3.7 mmol/L (3.4-5.1); Sodium 137 mmol/L (137-145); Total Protein 8.6 g/dL (6.3-8.2)
[2021-01-30] MEDS: ACETAMINOPHEN 325 MG TABLET 650 MG PO (06:11)
[2021-01-30] MEDS: GABAPENTIN 300 MG CAPSULE PO ×3 (08:30→20:48)
[2021-01-30] MEDS: metroNIDAZOLE 500 MG TABLET PO ×3 (08:30→20:48)
[2021-01-30] MEDS: chlordiazePOXIDE 25 MG CAPSULE PO ×2 (08:30→20:48)
[2021-01-30] MEDS: TRAMADOL 50 MG TABLET PO ×3 (08:30→20:49)
[2021-01-30] MEDS: LACTOBACILLUS ACIDOPHILUS TABLET 1 EACH PO (08:31)
[2021-01-30] MEDS: NICOTINE 21 MG PATCH TOP (08:31)
[2021-01-30] MEDS: DEXTROSE 5%-0.45NS W/KCL 20MEQ 1,000 ML 100 MEQ IV ×2 (08:35→21:00)
[2021-01-30] MEDS: CEFEPIME 1 GM in SODIUM CHLORIDE 0.9% 100 ML 200 ML IV ×2 (08:36→20:47)
[2021-01-30] MEDS: ENOXAPARIN 40 MG/0.4 ML SYRINGE SUBCUT (08:36)
[2021-01-30] MEDS: levETIRAcetam 250 MG TABLET 1000 MG PO ×2 (09:13→20:48)
--- NOTE | 2021-01-30 15:01 | P.PN_ITS ---
Subjective Subjective Date Patient Seen: 01/30/21 Interval history: BRIEF HISTORY IV DRUG USER PATIENT ADMITTED FOR CELLULITIS OF THE RIGHT FOREARM TODAY. PATIENT THROUGH AND TO LEAVE AGAINST MEDICAL ADVICE TODAY PER NURSING SPOKE TO PATIENT REGARDING THE CASE NO CHEST PAIN. NO SHORTNESS OF BREATH NO NAUSEA OR VOMITING NO DIARRHEA Exam Vital Signs (past 8 hours): - 01/30/21 08:45 01/30/21 12:00 Temperature 99.3 F 99.2 F Pulse Rate 97 H 94 H Respiratory Rate 18 16 Blood Pressure 150/110 H 158/118 H Pulse Oximetry 95 94 Oxygen Delivery Method Room Air Oxygen Flow Rate 0 Narrative Exam Narrative: NO ACUTE DISTRESS.? PATIENT IS ALERT ORIENTED X3.? APPEARS OLDER THAN STATED AGE.? POOR DENTITION HEAD ATRAUMATIC NORMOCEPHALIC NECK : SUPPLE WITHOUT ADENOPATHY NO CAROTID BRUITS EYE:? EOMI, PERRLA, NORMAL CONJUNCTIVA; NO JAUNDICE CHEST:? REGULAR RATE.? ? NO RUBS.? PMI IS NON DISPLACED.? NO MURMURS; NORMAL S1- S2 PULMONARY:? DECREASED BS OVER THE BASES.? MILD BIBASILAR CRACKLES NOTED; NO INCREASED DULLNESS TO PERCUSSION ABDOMEN:? SOFT.? NONTENDER.? NONDISTENDED.? BOWEL SOUNDS ARE PRESENT IN ALL 4 QUADRANTS.? NO MASS. EXTREMITIES:? SOME EDEMA NOTED TO THE RIGHT UPPER EXTREMITY.? ONE AREA OF INDURATION ALSO NOTED ON THE MEDIAL ASPECT OF THE FOREARM.? TENDER TO TOUCH.? SENSATION INTACT NEURO:? CRANIAL NERVES 2-12 GROSSLY INTACT. NO FOCAL NEUROLOGICAL DEFICIT NOTED. MSK:? ADEQUATE ACTIVE AND PASSIVE RANGE OF MOTION FOR AGE.? PAIN WITH EXTENSION AND FLEXION OF THE RIGHT ? FOREARM. SKIN:? SKIN TRACKING APPRECIATED.? REDNESS TO RIGHT UPPER MEDIAL ASPECT OF THE FOREARM :? NORMAL EXTERNAL GENITALIA. PSYCH :? APPROPRIATE MOOD AND AFFECT.? ALERT AWAKE ORIENTED X3 Objective Labs Result Diagrams: 01/30/21 05:27 01/30/21 05:27 Labs: Laboratory Results - last 24 hr 01/29/21 01/29/21 01/30/21 06:40 06:50 05:27 WBC 6.9 RBC 4.64 Hgb 13.5 Hct 38.3 L MCV 82.7 MCH 29.1 MCHC 35.2 RDW 13.5 Plt Count 272 Neut % (Auto) 68.8 Lymph % (Auto) 23.7 L [place] % (Auto) 6.5 Eos % (Auto) 0.6 L Baso % (Auto) 0.4 Neut # (Auto) 4800 Lymph # (Auto) 1600 [place] # (Auto) 500 Eos # (Auto) 0 Baso # (Auto) 0 Sodium Cancelled Potassium Cancelled Chloride Cancelled Carbon Dioxide Cancelled BUN Cancelled Creatinine Cancelled Estimated GFR Cancelled BUN/Creatinine Ratio Cancelled Glucose Cancelled Calcium Cancelled Total Bilirubin Cancelled AST Cancelled ALT Cancelled Alkaline Phosphatase Cancelled Total Creatine Kinase Cancelled Total Protein Cancelled Albumin Cancelled Globulin Cancelled Albumin/Globulin Ratio Cancelled 01/30/21 01/30/21 05:27 05:27 WBC RBC Hgb Hct MCV MCH MCHC RDW Plt Count Neut % (Auto) Lymph % (Auto) [place] % (Auto) Eos % (Auto) Baso % (Auto) Neut # (Auto) Lymph # (Auto) [place] # (Auto) Eos # (Auto) Baso # (Auto) Sodium 137 Potassium 3.7 Chloride 104 Carbon Dioxide 28 BUN 5 L Creatinine 0.69 Estimated GFR > 60.0 BUN/Creatinine Ratio 7.2 Glucose 105 H Calcium 9.7 Total Bilirubin 0.4 AST 26 ALT 18 Alkaline Phosphatase 86 Total Creatine Kinase 26 L Total Protein 8.6 H Albumin 3.9 Globulin 4.7 H Albumin/Globulin Ratio 0.8 L REPLACED BY [facility] Medical History (Updated 01/27/21 @ 10:49 by Mike Powell DO) Epilepsy Hypertension Opioid use disorder Surgical History No pertinent past surgical history Social History household members: none Smoking Status: Current every day smoker alcohol intake: current Assessment & Plan Assessment & Plan narrative: PROBLEM LIST RIGHT UPPER EXTREMITY CELLULITIS.? STREPTOCOCCUS ON CULTURE.? POSSIBLE ? MYOSIT IS NOTED ON CT SCAN.? ABSCESS RULED OUT; ON ANTIBIOTICS ANEMIA.? TYPE IS UNCLEAR.? COULD BE OF CHRONIC DISEASE ILLICIT DRUG USE.? COUNSELING GIVEN ALCOHOL ABUSE.? COUNSELING GIVEN TOBACCO ABUSE.? COUNSELING GIVEN WELL ACCELERATED HYPERTENSION. STARTED ON LISINOPRIL, METOPROLOL. POSSIBLE ANXIETY FOR HISTORY POSSIBLE SEIZURE DISORDERS PER HISTORY MEDICAL NONCOMPLIANCE.? COUNSELING GIVEN PLAN 01/30 WILL PLAN TO CONTINUE ANTIBIOTIC THERAPY WITH VANCOMYCIN AND CEFEPIME/FLAGYL FOR ANOTHER 24 HOURS WILL LIKELY SWITCH TO CLINDAMYCIN VERSES DOXYCYCLINE AND LEVAQUIN/FLAGYL TOMORROW ASSISTANCE FROM THE PHARMACY TEAM GREATLY APPRECIATED WITH VANCOMYCIN DOSING LABS HAS REMAINED STABLE HYPERTENSION HAS BEEN NOTED FOR LAST 24 HOURS WILL ADD METOPROLOL AND LISINOPRIL WILL CONSIDER ADDING CALCIUM CHANNEL CORAZON IF INDICATED CLINICALLY WELL CLONIDINE ORDERED NEEDED FOR NOW PATIENT WANTED TO LEAVE AGAINST MEDICAL ADVICE TODAY SPOKE TO PATIENT AND HE CHANGED HIS MIND PICC LINE WAS ORDERED FOR BETTER IV ACCESS PICC LINE DRESSING CARE PER HOSPITAL PROTOCOL IN ANY CASE, I SHOULD BE ABLE TO DISCHARGE HIM IN THE NEXT 24-48 HOURS ON ORAL ANTIBIOTICS IF CLINICALLY STABLE PATIENT IS HIGH RISK FOR READMISSION DUE TO LIFESTYLE AND POOR SOCIAL SUPPORT 01/29 WILL ORDER PICC LINE TODAY TO REPLACE THE MIDLINE CONTINUE IV ANTIBIOTICS WELL WILL AGAIN CONSIDER ADDING CLINDAMYCIN HOWEVER THIS COULD BE DONE ON DISPOSITION LABS REMAIN STABLE FOLLOW SIGNS REMAINED STABLE WELL WILL START TAPERING ANTIBIOTIC THERAPY OVER THE NEXT 24-48 HOURS TO ORAL ANTIBIOTICS ONCE INDICATED FOLLOW LABS DAILY MONITOR FOR SIGN AND SYMPTOMS OF? C DIFF COLITIS ADDITIONAL MANAGEMENT PER CLINIC RAFIA 01/28 CONTINUE CURRENT MANAGEMENT FOR NOW PATIENT IS ON VANCOMYCIN, CEFEPIME WELL FLAGYL AGAIN WILL CONSIDER ADDING CLINDAMYCIN P.O. DAILY NEXT 24 HOURS IF INDICATED CLINICALLY CT SCAN REPEATED TODAY AND WAS NEGATIVE FOR DEVELOPING ABSCESS NO SURGICAL INTERVENTION INDICATED AT THIS TIME WILL LIKELY START TO DEESCALATE ANTIBIOTIC THERAPY OVER THE NEXT 24 HOURS MONITOR CLOSELY FOR ANY SIGNS OF C DIFF COLITIS WHILE ON ANTIBIOTIC THERAPY MONITOR CLOSELY FOR SIGNS OF WITHDRAWAL IN REGARD TO SUBSTANCE ABUSE PATIENT WILL BE RESTARTED ON ORAL INTAKE ADDITIONAL MANAGEMENT PER CLINICAL COURSE 01/27 PATIENT WILL BE STARTED ON ANTIBIOTICS WITH VANCOMYCIN, CEFEPIME, FLAGYL. CONSIDER ADDING CLINDAMYCIN TO COVER FOR STREPTOCOCCUS TOXIN WELL IF INDICATED CHECK CPK WILL REFER TO ORTHOPEDIC SURGERY FOR FURTHER RECOMMENDATIONS WILL MAKE NPO AFTER MIDNIGHT WILL ALSO REPEAT CT SCAN IN THE MORNING DAILY LAB TO FOLLOW DAILY CPK LEVEL TO FOLLOW WELL DUE TO HISTORY OF SUBSTANCE ABUSE, IV AND ORAL MEDICATION WILL BE ORDERED NEEDED TO HELP SYMPTOMATICALLY WILL ORDER ON NICOTINE PATCH STRONG HISTORY OF ALCOHOL ABUSE ALSO REPORTED WILL START ON LIBRIUM T.I.D. ON ATIVAN IV NEEDED LOVENOX FOR DVT PROPHYLAXIS UNLESS OTHERWISE RECOMMENDED BY SURGICAL TEAM ONCE ON BOARD ADDITIONAL MANAGEMENT PER CLINICAL COURSE PROGNOSIS IS GUARDED Time Spent With Patient Critical Care time: I spent a total of [] minutes of critical care time on this patient's care today; this time is exclusive of procedural time. Quality VTE Deep Vein Thrombosis/Pulmonary Embolism Present on Admission: No
--- NOTE | 2021-01-30 15:21 | CM.DPC ---
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 Per MD, pt likely only needs another 24 hrs of IV-Abx and then likely can be switched to oral abx. Per RN, pt now interested in remaining abstinent and wants Inpt MADELAINE tx. SW called [phone] [facility], based?in [place], to inquire if they are still doing MADELAINE assessments for pt here at the hospital and if they can determine if pt's Medicaid would cover his assessment and Inpt tx. Requested call back. If [facility] cannot do bedside assessment for Inpt MADELAINE tx, pt may need to d/c to either [facility] or [facility] detox for assist in getting into tx if still agreeable. Plan: SW to follow closely for return call from [facility] and further discussion with pt tomorrow towards confirming he is still voluntarily requesting MADELAINE tx at discharge. KAREN Aldridge
[2021-01-30] MEDS: FUROSEMIDE 20 MG TABLET PO (15:35)
[2021-01-30] MEDS: METOPROLOL ER 25 MG TABLET PO (15:35)
[2021-01-30] MEDS: lisinopriL 20 MG TABLET PO (15:35)
[2021-01-30] MEDS: LORazepam 2 MG/ML INJ 1 MG IV (19:33)
[2021-01-30] MEDS: MELATONIN 3 MG TABLET 6 MG PO (20:48)
[2021-01-30] MEDS: BUSPIRONE 5 MG TABLET 10 MG PO (20:48)
[2021-01-30] MEDS: SENNOSIDES 8.6 MG TABLET 17.2 MG PO (20:49)
[2021-01-30] MEDS: SERTRALINE 50 MG TABLET PO (20:49)
[2021-01-30] MEDS: TRAZODONE 100 MG TABLET PO (20:49)
[2021-01-31] VITALS (7 sets, daily range): BP systolic 160–176; BP diastolic 96–128; PULSE 82–89; RESP 17–18; TEMP 36.9–37.1; O2SAT 94–96
--- NOTE | 2021-01-31 00:26 | PC.NURSE ---
Patient is alert and oriented. Breath sounds diminished but CTA with RA sat of 98%. HRR. BP improved with use of BP meds but still high at 145/98. Denied nausea. BT present and abdomen is soft. Denied dysuria, frequency or urgency with urination; using urinal. Is able to move himself in bed. Gait not assessed. Decreased redness/firmness to right UE but still complains of 7/10 pain and is taking scheduled pain meds. Did complain of feeling anxious earlier and stated he felt like he was going through withdrawl but no real symptoms noted; did medicate with Ativan at that time. Continues to refuse use of SCD's so reminded to ankle wave. Fall risk score is moderate and bed alarm is activated.
[2021-01-31] MEDS: VANCOMYCIN 1,250 MG/250 ML PIGGYBACK 250 MG IV (03:32)
[2021-01-31] MEDS: SODIUM CHLORIDE 0.9% FLUSH 10 ML IV (05:09)
[2021-01-31 05:32] LABS: Add Manual Diff / Slide Review NO; Basophils Absolute Auto 0 /uL (0-100); Basophils Percent Auto 0.6 % (0-2); Eosinophils Absolute Auto 0 /uL (0-450); Eosinophils Percent Auto 0.9 % (2-4); Hematocrit 40.9 % (41-53); Lymphocytes Absolute Auto 1400 /uL (1100-4500); Lymphocytes Percent Auto 26.3 % (25-40); Mean Corpuscular HGB Conc 34.2 % (30-36); Mean Corpuscular Hemoglobin 28.7 PG (26-34); Mean Corpuscular Volume 84.1 fL (80-100); Monocytes Absolute Auto 400 /uL (0-900); Monocytes Percent Auto 7.9 % (3-14); Neutrophils Absolute Auto 3300 /uL (1500-7000); Neutrophils Percent Auto 64.3 % (50-75); Platelet Count 279 X10^3/uL (150-400); Red Blood Cell Count 4.86 X10^6/uL (4.5-5.9); Red Cell Distribution Width 13.9 % (11.6-14.8); White Blood Cell Count 5.2 X10^3/uL (4.5-11.0)
[2021-01-31 05:40] LABS: Alanine Aminotransferase 22 IU/L (<50); Albumin 3.8 g/dL (3.5-5.0); Albumin Globulin Ratio 0.8 (1.0-2.8); Alkaline Phosphatase 69 U/L (38-126); Aspartate Aminotransferase 32 IU/L (17-59); BUN Creatinine Ratio 7.5 (6-22); Bilirubin Total 0.4 mg/dL (0.2-1.3); Blood Urea Nitrogen 6 mg/dL (9-20); Calcium 9.4 mg/dL (8.4-10.2); Carbon Dioxide 28 mmol/L (22-32); Chloride 106 mmol/L (98-107); Estimated Glomerular Filt Rate > 60.0 mL/min (>60); Globulin 4.8 g/dL (1.7-4.1); Glucose 165 mg/dL (70-100); HEMOLYSIS < 15 (0-50); Potassium 3.6 mmol/L (3.4-5.1); Sodium 139 mmol/L (137-145); Total Protein 8.6 g/dL (6.3-8.2)
[2021-01-31 07:11] LABS: Creatine Kinase < 20 U/L (55-170)
[2021-01-31] MEDS: LACTOBACILLUS ACIDOPHILUS TABLET 1 EACH PO (08:31)
[2021-01-31] MEDS: CEFEPIME 1 GM in SODIUM CHLORIDE 0.9% 100 ML 200 ML IV (08:31)
[2021-01-31] MEDS: DOXYCYCLINE HYCLATE 100 MG TABLET PO (08:32)
[2021-01-31] MEDS: TRAMADOL 50 MG TABLET PO (08:32)
[2021-01-31] MEDS: GABAPENTIN 300 MG CAPSULE PO (08:32)
[2021-01-31] MEDS: metroNIDAZOLE 500 MG TABLET PO (08:32)
[2021-01-31] MEDS: lisinopriL 20 MG TABLET PO (08:33)
[2021-01-31] MEDS: FUROSEMIDE 20 MG TABLET PO (08:33)
[2021-01-31] MEDS: chlordiazePOXIDE 25 MG CAPSULE PO (08:34)
[2021-01-31] MEDS: levETIRAcetam 250 MG TABLET 1000 MG PO (08:34)
[2021-01-31] MEDS: ENOXAPARIN 40 MG/0.4 ML SYRINGE SUBCUT (08:34)
[2021-01-31] MEDS: NICOTINE 21 MG PATCH TOP (08:34)
[2021-01-31] MEDS: BUSPIRONE 5 MG TABLET 10 MG PO (08:55)
[2021-01-31] MEDS: METOPROLOL ER 25 MG TABLET PO (08:56)
[2021-01-31] MEDS: DEXTROSE 5%-0.45NS W/KCL 20MEQ 1,000 ML 100 MEQ IV (08:57)
[2021-01-31] MEDS: LORazepam 2 MG/ML INJ 1 MG IV (09:14)
[2021-01-31] MEDS: HYDROMORPHONE 1 MG INJ IV (09:20)
--- NOTE | 2021-01-31 10:19 | CM.DPC ---
DCP continued:CM met with patient at the bedside he was alert and oriented x3 during CM visit.... Patient has a plan to call Detox facility in [facility]- to start the process of getting clean and going to INPT treatment for his substance abuse. Patient was tearful and stated he is ready to get clean and wants to do better. CM gave him other [facility] treatment program information that way he will have resources incase the option he has chosen doesn't work for him. patient stated he was ready for DC whenever MD was ready. CM updated MD and the plan is for patient to DC today. Mary Palencia RNlivestock rancher
--- NOTE | 2021-01-31 10:28 | PM.DS.1 ---
History of Present Illness History of Present Illness Date Patient Seen: 01/31/21 Chief complaint: right arm infected x5 days Narrative: THIS IS A 40-YEAR-OLD MALE WHO ADMITTED THAT HE USES ILLICIT DRUGS. HE USUALLY INJECTS HEROIN. REPORTEDLY. HE ALSO REPORTED DRINKING ALCOHOL DAILY WELL SMOKING EXTENSIVELY. HE REPORTED THAT ABOUT 5 DAYS AGO HE STARTED HAVING SOME PAIN TO THE RIGHT UPPER ARM THIS IS THE ARM THAT HE USED LAST TO INJECT HEROIN. HE REPORTED SOME SUBJECTIVE FEVERS. NO CHILLS. HE DENIES ANY PUS OR PURULENT ORDER. NO INSECT BITE. NO TRAUMAS. HE ALSO REPORTED SOME SWELLING MEDIALLY TO THE FOREARM. THE ARM HAS BEEN VERY PAINFUL. IT IS THE RIGHT UPPER ARM AROUND THE ELBOW AREA ANTERIORLY. HE HAD NO OTHER COMPLAINTS Discharge Providers Provider Date of admission: 01/27/21 11:27 Discharge Date: 01/31/21 Primary care physician: NONE Consults: NONE Discharge provider: Yumiko Valadez DO Summary Hospital Course Discharge Diagnosis: RIGHT UPPER EXTREMITY CELLULITIS.? STREPTOCOCCUS ON CULTURE.? ABSCESS RULED OUT; DISCHARGED ON ANTIBIOTICS ANEMIA.? TYPE IS UNCLEAR.? COULD BE OF CHRONIC DISEASE ILLICIT DRUG USE.? COUNSELING GIVEN ALCOHOL ABUSE.? COUNSELING GIVEN TOBACCO ABUSE.? COUNSELING GIVEN WELL ACCELERATED HYPERTENSION.? STARTED ON LISINOPRIL, METOPROLOL. POSSIBLE ANXIETY FOR HISTORY POSSIBLE SEIZURE DISORDERS PER HISTORY MEDICAL NONCOMPLIANCE.? COUNSELING GIVEN Hospital Course: THIS IS A VERY NONCOMPLIANT 40-YEAR-OLD MALE WITH A HISTORY OF IV DRUG USE WELL SEIZURE DISORDER PRESENTED TO THE HOSPITAL WITH CELLULITIS OF THE RIGHT UPPER EXTREMITY. HIS RIGHT FOREARM WHERE HE INJECTS HEROIN WAS INFECTED. HE WAS TREATED WITH IV ANTIBIOTICS. MULTIPLE CT SCAN DID NOT SHOW ANY DEVELOPING ABSCESS. AT THIS TIME THE AREA IS NOT RED. NO SIGN OF ABSCESS. HE WILL BE DISCHARGED TO HOME ON ORAL ANTIBIOTICS. DOXYCYCLINE AND OMNICEF WERE ORDERED. HE WAS GIVEN EXTENSIVE CONSIDER REGARD TO SUBSTANCE ABUSE. RESOURCES WERE PROVIDED TO PATIENT PRIOR TO DISCHARGE CHANGES MADE TO HIS MEDICINES WELL. HE WILL BE ON METOPROLOL 50 MG XL DAILY. LISINOPRIL 20 MG DAILY WELL HE WAS STARTED ON GABAPENTIN, ZOLOFT WELL BUSPAR. TRAZODONE HAS BEEN ORDERED FOR NIGHTTIME. DUE TO NONCOMPLIANCE IS HIGH RISK FOR READMISSION. I DOUBT PATIENT WILL BE MEDICATION ORDERED. HIS PROGNOSIS IS GUARDED AT BASE IN THE LONG RUN. Status at Discharge Cognitive/behavioral status at discharge: oriented Functional status at discharge: independent ambulation Overall status at discharge: patient is back to baseline Time Spent with Patient Time spent: Greater than 30 minutes Exam Vital Signs (past 8 hours): - 01/31/21 04:43 01/31/21 08:33 01/31/21 08:56 Temperature 98.5 F Pulse Rate 82 Respiratory Rate 17 Blood Pressure 160/96 H 160/96 H 160/96 H Pulse Oximetry 94 01/31/21 09:00 Temperature 98.7 F Pulse Rate 89 Respiratory Rate 18 Blood Pressure 172/98 H Pulse Oximetry 96 Oxygen Delivery Method Room Air Oxygen Flow Rate 0 Narrative Exam Narrative: NO ACUTE DISTRESS.? PATIENT IS ALERT ORIENTED X3.? APPEARS OLDER THAN STATED AGE.? POOR DENTITION ? HEAD ATRAUMATIC NORMOCEPHALIC NECK : SUPPLE WITHOUT ADENOPATHY NO CAROTID BRUITS EYE:? EOMI, PERRLA, NORMAL CONJUNCTIVA; NO JAUNDICE CHEST:? REGULAR RATE.? ? NO RUBS.? PMI IS NON DISPLACED.? NO MURMURS; NORMAL S1-S2 PULMONARY:? DECREASED BS OVER THE BASES.? MILD BIBASILAR CRACKLES NOTED; NO INCREASED DULLNESS TO PERCUSSION ABDOMEN:? SOFT.? NONTENDER.? NONDISTENDED.? BOWEL SOUNDS ARE PRESENT IN ALL 4 QUADRANTS.? NO MASS. EXTREMITIES:? MILD EDEMA NOTED TO THE RIGHT UPPER EXTREMITY.? ONLY MILD REDNESS NOTED ON THE MEDIAL ASPECT OF THE FOREARM.? NONTENDER TO TOUCH.? SENSATION INTACT NEURO:? CRANIAL NERVES 2-12 GROSSLY INTACT. NO FOCAL NEUROLOGICAL DEFICIT NOTED. MSK:? ADEQUATE ACTIVE AND PASSIVE RANGE OF MOTION FOR AGE.? PAIN WITH EXTENSION AND FLEXION OF THE RIGHT ? FOREARM. SKIN:? SKIN TRACKING APPRECIATED.? MILD REDNESS TO RIGHT UPPER MEDIAL ASPECT OF THE FOREARM :? NORMAL EXTERNAL GENITALIA. PSYCH :? APPROPRIATE MOOD AND AFFECT.? ALERT AWAKE ORIENTED X3 Objective Labs Result Diagrams: 01/31/21 05:12 01/31/21 05:12 Labs: Laboratory Results - last 24 hr 01/31/21 01/31/21 01/31/21 05:12 05:12 05:12 WBC 5.2 RBC 4.86 Hgb 14.0 Hct 40.9 L MCV 84.1 MCH 28.7 MCHC 34.2 RDW 13.9 Plt Count 279 Neut % (Auto) 64.3 Lymph % (Auto) 26.3 [place] % (Auto) 7.9 Eos % (Auto) 0.9 L Baso % (Auto) 0.6 Neut # (Auto) 3300 Lymph # (Auto) 1400 [place] # (Auto) 400 Eos # (Auto) 0 Baso # (Auto) 0 Sodium 139 Potassium 3.6 Chloride 106 Carbon Dioxide 28 BUN 6 L Creatinine 0.80 Estimated GFR > 60.0 BUN/Creatinine Ratio 7.5 Glucose 165 H Calcium 9.4 Total Bilirubin 0.4 AST 32 ALT 22 Alkaline Phosphatase 69 Total Creatine Kinase < 20 L Total Protein 8.6 H Albumin 3.8 Globulin 4.8 H Albumin/Globulin Ratio 0.8 L PFSH Medical History (Updated 01/27/21 @ 10:49 by Mike Powell DO) Epilepsy Hypertension Opioid use disorder Surgical History No pertinent past surgical history Social History household members: none Smoking Status: Current every day smoker alcohol intake: current Discharge Plan Discharge Plan Patient Disposition: Home Discharge orders & Medications 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: New Bacid 1 billion cell- 250 mg Tablet 1 ea PO TIDWM Qty: 90 0RF buspirone 10 mg tablet 10 mg PO BID Qty: 60 0RF gabapentin [Neurontin] 300 mg Capsule 300 mg PO TID Qty: 90 0RF furosemide 20 mg Tablet 20 mg PO DAILY Qty: 30 0RF doxycycline hyclate 100 mg Tablet 100 mg PO BID Qty: 20 0RF levetiracetam 500 mg tablet 1,000 mg PO BID Qty: 120 0RF lisinopril 20 mg Tablet 20 mg PO DAILY Qty: 60 0RF metoprolol succinate 50 mg tablet extended release 24 hr 50 mg PO DAILY Qty: 60 0RF sennosides [senna] 8.6 mg Tablet 17.2 mg PO BEDTIME Qty: 120 0RF trazodone 100 mg Tablet 100 mg PO BEDTIME Qty: 60 0RF nicotine 21 mg/24 hr Patch 24 Hour 21 mg topical DAILY Qty: 20 0RF sertraline [Zoloft] 50 mg Tablet 50 mg PO BEDTIME Qty: 60 0RF cefdinir 300 mg capsule 300 mg PO BID Qty: 20 0RF Discontinued LISINOPRIL (Zestril / Prinivil) 10 mg Q DAY Qty: 0 0RF Label Comments: Has not been taking for about 1 year. FUROSEMIDE (Lasix) 20 mg Q DAY Qty: 0 0RF Label Comments: Has not been taking for about 1 year sertraline 25 mg tablet 25 mg PO DAILY Qty: 30 0RF Label Comments: Has not been taking for about 1 year. levetiracetam 500 mg tablet 1,500 mg PO BID 0RF Diet/Activity/Treatments Diet: Regular Activity: TOLERATED Skin/Wound/Dressing Care Report to your healthcare provider any signs of infection, such as:: chills, fever, night sweats, increased pain, unusual drainage and unusual redness Visit Report/Discharge Packet Instructions: Cellulitis Quality VTE Deep Vein Thrombosis/Pulmonary Embolism Present on Admission: No
[2021-01-31] MEDS: METOPROLOL IR 50 MG TABLET PO (10:47)
--- NOTE | 2021-01-31 11:32 | PC.NURSE ---
Discharge note: manager critical care met with patient and provided phone numbers/information on rehab resources. Pt going home on oral antibiotics. All scripts given. Reviewed home meds. Double lumen PICC line discontinued. Tip of catheter intact. Occlusive dressing applied and gauze under that. Instructed to keep dressing c/d/i for 24 hours, then may remove and cover site with bandaid until scab forms. Instructed not to soak arm in a bath tub or hot tub until exit site hole closes. Verbalized understanding. Taken to private vehicle via wheelchair, friend driving. Powder Shoveler was locked up in safe, returned to patient.
== END 2021-01-31 11:22 | disposition home or self-care (01) | DRG 603 ==
LOC: ED 10:49 → AC 11:28
PROVIDERS: Emergency Medicine; Admitting Provider Hospitalist; Emergency Provider Emergency Medicine; Referring Provider Emergency Medicine; Visit Provider Hospitalist
DX: L03.113 Cellulitis of right upper limb (principal); F10.10 Alcohol abuse, uncomplicated; D64.9 Anemia, unspecified; R56.9 Unspecified convulsions; F11.10 Opioid abuse, uncomplicated; F17.210 Nicotine dependence, cigarettes, uncomplicated; F41.9 Anxiety disorder, unspecified; Z91.19 Patient's noncompliance with other medical treatment and regimen; Z20.822 Contact with and (suspected) exposure to COVID-19
CPT/HCPCS: 36415; 36569; 36592; 73201; 73202; 80053; 80202; 82550; 82962; 83605; 84145; 85025; 87040; 87635; 94760; 96365; 96367; 99284; 99406; C9803; J0692; J0696; J1170; J1642; J1650; J2060; Q9967

== ENCOUNTER 2022-05-10 11:49 | Emergency (ER) | payer MEDICARE, MEDICAID, SELFPAY ==
[2021-01-27 13:13] VITALS: BMI 24.8
[2022-05-10 12:06] VITALS: BP 180/105; PULSE 79; O2SAT 100
[2022-05-10 12:09] VITALS: BP 180/105; PULSE 83; RESP 18; TEMP 36.4; O2SAT 100; BMI 25.0
[2022-05-10 12:30] VITALS: PULSE 72; O2SAT 99
[2022-05-10 12:32] VITALS: BP 183/105; PULSE 80; O2SAT 99
--- NOTE | 2022-05-10 12:42 | PC.NURSE ---
dental exam done by provider. left side of face is swollen to eye. states he was at the dentist yesterday and was started on clindamycin. denies any trauma to face.
--- NOTE | 2022-05-10 12:45 | ED.DENTAL ---
HPI - Dental/Oral <Ayala Malin PA-C - Last Filed: 05/10/22 19:55> General Chief complaint: Dental/Oral Stated complaint: Tooth infection, Face swelling Time Seen by Provider: 05/10/22 11:56 Source: patient Mode of arrival: Ambulatory History of Present Illness HPI Narrative: 42-year-old male with a history of IV drug use presents with concern for dental infection. Patient states he was seen at the dentist yesterday told he likely had an abscess in 1 of his teeth and started on clindamycin. Patient states that he kept waking up pain in the middle of the night with some pain so he took a clindamycin multiple times he is not sure exactly how many he took he thinks possibly 4 or 5 pills since yesterday evening. He states he has been having pain and swelling in the left side of his cheek and face for about 3 days, this started with and has continued with pain in 1 of his teeth in his left upper jaw in the middle. He endorses a previous history of problems with his teeth and previous infections but no problem in this location previously. He states the whole left side of his face feels painful and has been swollen. He states that he does still use recreational drugs, occasionally methamphetamine and he smokes blues almost every day he last smoked blue yesterday afternoon he states he no longer does any injection drugs. He denies fevers or chills and states he has otherwise been in his usual state of health. Related Data Previous Rx's Medication Instructions Recorded L.acidophilus-L.bulgar-B.bifid-S.thermoph 1 ea PO TIDWM #90 tabs 01/31/21 1 billion cell-250 mg tablet (Bacid) buspirone 10 mg tablet 10 mg PO BID #60 tabs 01/31/21 cefdinir 300 mg capsule 300 mg PO BID #20 caps 01/31/21 clonidine HCl 0.1 mg tablet 0.1 mg PO BID #60 tabs 01/31/21 doxycycline hyclate 100 mg tablet 100 mg PO BID #20 tabs 01/31/21 furosemide 20 mg tablet 20 mg PO DAILY #30 tabs 01/31/21 gabapentin 300 mg capsule 300 mg PO TID #90 caps 01/31/21 (Neurontin) levetiracetam 500 mg tablet 1,000 mg PO BID #120 tabs 01/31/21 lisinopril 20 mg tablet 20 mg PO DAILY #60 tabs 01/31/21 metoprolol succinate 50 mg 50 mg PO DAILY #60 tabs 01/31/21 tablet,extended release 24 hr nicotine 21 mg/24 hr daily 21 mg topical DAILY #20 ea 01/31/21 transdermal patch sennosides 8.6 mg tablet (senna) 17.2 mg PO BEDTIME #120 tabs 01/31/21 sertraline 50 mg tablet (Zoloft) 50 mg PO BEDTIME #60 tabs 01/31/21 trazodone 100 mg tablet 100 mg PO BEDTIME #60 tabs 01/31/21 Allergies Allergy/AdvReac Type Severity Reaction Status Date / Time morphine [MORPHINE] Allergy Severe mccann on Verified 05/10/22 12:14 skin Penicillins [PENICILLINS] AdvReac Severe vomiting Verified 05/10/22 12:14 Review of Systems <Ayala Malin PA-C - Last Filed: 05/10/22 19:55> Review of Systems Narrative: See HPI Patient History <Ayala Malin PA-C - Last Filed: 05/10/22 19:55> Medical History (Updated 05/10/22 @ 13:04 by Ayala Malin PA-C) Epilepsy Hypertension Opioid use disorder Surgical History No pertinent past surgical history Social History household members: none Smoking Status: Current every day smoker alcohol intake: current Smoking Status: Current every day smoker tobacco type: cigarettes alcohol intake frequency: a few times a week Substance Use Type: marijuana, heroin, opiates, IV drugs and methamphetamine Exam <Ayala Malin PA-C - Last Filed: 05/10/22 19:55> Narrative Exam Narrative: GENERAL: 42 year old patient appears stated age. Well-developed patient, in mild distress. HEAD: Atraumatic. Normocephalic--however the left side of the patient's face is moderately swollen, the left eye is swollen shut but the patient can open it. See skin EYES: Pupils equal round and reactive 2 mm. Extraocular motions intact. No scleral icterus. No injection or drainage. ENT: Nose without bleeding, purulent drainage. Throat without erythema, tonsillar hypertrophy or exudate. Airway patent. Patient has tenderness with manipulation of the tragus of the left ear also with placing the otoscope to examine the ear he has some pain, the TM is mildly injected but otherwise unremarkable, ear canal is unremarkable. Right TM is also slightly injected and ear canal is normal in appearance. Patient is missing multiple teeth, the tooth in question with suspected abscess at its root is on the left upper-- mid molar and is broken without obvious visible abscess of the gum line, patient has significant tenderness with palpation of this tooth and surrounding gum line. NECK: Trachea midline. Non tender CARDIOVASCULAR: Regular rate and rhythm without murmurs, gallops, or rubs. RESPIRATORY: Clear to auscultation. Breath sounds equal bilaterally. Slight bilateral upper field wheezes, without rales, or rhonchi. GASTROINTESTINAL: Abdomen soft, non-tender, nondistended. EXTREMITIES: No edema or joint tenderness. BACK: Nontender without deformity or crepitance. No flank tenderness. NEURO: AOx3. SKIN: Patient has multiple scars consistent with previous drug use, also note scattered erythematous rash of the scalp in patches. No other rash or erythema of visible areas Initial Vital Signs Initial Vital Signs: Vital Signs Pulse Rate 79 05/10/22 12:06 Blood Pressure 180/105 H 05/10/22 12:06 Pulse Oximetry 100 05/10/22 12:06 <Charis Richards DO - Last Filed: 05/11/22 08:02> Initial Vital Signs Initial Vital Signs: Vital Signs Pulse Rate 79 05/10/22 12:06 Blood Pressure 180/105 H 05/10/22 12:06 Pulse Oximetry 100 05/10/22 12:06 Course <Ayala Malin PA-C - Last Filed: 05/10/22 19:55> Course Course Narrative: Did consult Dr. Richards, attending physician regarding this patient as he is already on clindamycin but did have some concern that he may have a more widespread infection, possibly cellulitis of his face or possibly deeper space infection and would like a 2nd opinion regarding pursuing further evaluation here in the emergency department versus just continuing clindamycin. She will evaluate the patient as well. 12:50 Dr. Richards did also look at the patient and does not have concern for need for advanced imaging/labs at this time and notes the patient has only been on clindamycin for less than 1 day, plan to discharge the patient with return precautions and advised to follow up closely with dental in 7-10 days after he finishes this is antibiotics. 13:00 Vital Signs Vital signs: Vital Signs - 8 hr 05/10/22 12:09 05/10/22 12:06 05/10/22 12:06 Temperature 97.6 F Pulse Rate 83 79 Respiratory Rate 18 Blood Pressure 180/105 H 180/105 H Pulse Oximetry 100 100 Oxygen Delivery Method Room Air 05/10/22 12:30 05/10/22 12:32 05/10/22 12:32 Temperature Pulse Rate 72 80 Respiratory Rate Blood Pressure 183/105 H Pulse Oximetry 99 99 Oxygen Delivery Method 05/10/22 13:00 05/10/22 13:00 Temperature Pulse Rate 70 Respiratory Rate 16 Blood Pressure 182/107 H Pulse Oximetry 99 Oxygen Delivery Method Room Air <Charis Richards DO - Last Filed: 05/11/22 08:02> Vital Signs Vital signs: Vital Signs - 8 hr 05/10/22 12:09 05/10/22 12:06 05/10/22 12:06 Temperature 97.6 F Pulse Rate 83 79 Respiratory Rate 18 Blood Pressure 180/105 H 180/105 H Pulse Oximetry 100 100 Oxygen Delivery Method Room Air 05/10/22 12:30 05/10/22 12:32 05/10/22 12:32 Temperature Pulse Rate 72 80 Respiratory Rate Blood Pressure 183/105 H Pulse Oximetry 99 99 Oxygen Delivery Method 05/10/22 13:00 05/10/22 13:00 Temperature Pulse Rate 70 Respiratory Rate 16 Blood Pressure 182/107 H Pulse Oximetry 99 Oxygen Delivery Method Room Air MDM - Dental/Oral <Ayala Malin PA-C - Last Filed: 05/10/22 19:55> Differential Diagnosis Differential diagnosis: Likely dental caries, toothache and dental abscess Medical Records Attestation: I reviewed the patient's medical records. Treatment and disposition Social Determinants of Health that impact treatment or disposition: Pt is a chronic meth and opioid user Shared decision making:: shared decision making was used in determining the plan of care for this patient/hemant for outpatient follow up MDM Narrative Medical decision making narrative: 42-year-old male with history of chronic meth and opioid use presents with concern for possible dental abscess, was seen by a dentist yesterday and started on clindamycin. First dose of clindamycin was yesterday evening less than 24 hours ago. Patient presented to the emergency department because a dentist told him he might have an abscess and he comes in for further evaluation. Patient's vitals were not suggestive of a septic process, his history also was not suggestive of this, he is on appropriate antibiotics for a dental abscess and has been taking them for less than 24 hours, after exam and evaluation by myself and attending physician feel it is reasonable to discharge with him continue on clindamycin with return precautions. Patient is also advised to follow up closely with dentistry in 7-10 days for further evaluation. Return precautions provided, follow-up plan discussed, all questions answered. Discharge Plan Departure Patient Disposition: Home Clinical Impression: Dental infection Instructions: DI for Dental Pain Activity Restrictions/Additional Instructions: Thank you for letting us be part of her care in the emergency department today. You are already on appropriate antibiotics to treat ear infection however you have not been on them for very long and it is important to take them as prescribed and not more often or less often than as prescribed. These antibiotics should start to treat ear infection and he should see reduction in pain and inflammation over the next few days. If you do not or if you have new or worsening symptoms please do not hesitate to be re-evaluated. Strongly recommend he follow up closely with Dentistry in the next 7-10 days for a recheck. If you develop fevers, chills or other new or concerning symptoms do not hesitate to be re-evaluated present to the emergency department if necessary. I recommend you take Tylenol and ibuprofen for pain. There is no evidence of an emergent or life threatening illness at this time, but follow up with your doctor in 1-2 days is recommended nonetheless to continue to rule out serious underlying causes of your symptoms. Please call the office for an appointment. Please return to the Emergency Department for any worsening or persistent symptoms. Please take medications as directed. 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: No Action Bacid 1 billion cell- 250 mg Tablet 1 ea PO TIDWM Qty: 90 0RF buspirone 10 mg tablet 10 mg PO BID Qty: 60 0RF gabapentin [Neurontin] 300 mg Capsule 300 mg PO TID Qty: 90 0RF furosemide 20 mg Tablet 20 mg PO DAILY Qty: 30 0RF doxycycline hyclate 100 mg Tablet 100 mg PO BID Qty: 20 0RF levetiracetam 500 mg tablet 1,000 mg PO BID Qty: 120 0RF lisinopril 20 mg Tablet 20 mg PO DAILY Qty: 60 0RF metoprolol succinate 50 mg tablet extended release 24 hr 50 mg PO DAILY Qty: 60 0RF sennosides [senna] 8.6 mg Tablet 17.2 mg PO BEDTIME Qty: 120 0RF trazodone 100 mg Tablet 100 mg PO BEDTIME Qty: 60 0RF nicotine 21 mg/24 hr Patch 24 Hour 21 mg topical DAILY Qty: 20 0RF sertraline [Zoloft] 50 mg Tablet 50 mg PO BEDTIME Qty: 60 0RF cefdinir 300 mg capsule 300 mg PO BID Qty: 20 0RF clonidine HCl 0.1 mg tablet 0.1 mg PO BID Qty: 60 0RF Stand Alone Forms: Patient Portal/API <Charis Richards DO - Last Filed: 05/11/22 08:02> Cosign ED Attending Cosignature Attestation: I was asked to see patient patient has some mild swelling in the left side of his face without significant redness already taking clindamycin but has taken only 1 day's worth. There is no evidence of deep neck soft tissue infection no airway compromise, no obvious dental abscess he actually has no teeth. I discussed with patient if symptoms get worse then he should return however keep taking the clindamycin and antibiotics follow-up with dentist. I was immediately available in the department for consultation. Documentation has been reviewed.
[2022-05-10 13:00] VITALS: BP 182/107; PULSE 70; RESP 16; O2SAT 99
== END 2022-05-10 13:18 | disposition home or self-care (01) ==
PROVIDERS: Emergency Provider Student in an Organized Health Care Education/Training Program
DX: K04.7 Periapical abscess without sinus (principal)
CPT/HCPCS: 99281

== ENCOUNTER 2022-05-19 17:38 | Emergency (ER) | payer MEDICARE, MEDICAID, SELFPAY ==
[2021-01-27 13:13] VITALS: BMI 24.8
[2022-05-19 18:00] VITALS: BP 181/99; PULSE 82; RESP 18; TEMP 36.9; O2SAT 97; BMI 25.0
--- NOTE | 2022-05-19 18:07 | DI.CT.S_ITS ---
PROCEDURE: CT FACIAL BONES W CON INDICATIONS: L sided dental infection with eye involvement TECHNIQUE: After the administration of intravenous contrast, 2.5 mm axial sections acquired from the mid-neck to the frontal sinuses, with coronal and sagittal reformats. For radiation dose reduction, the following was used: automated exposure control, adjustment of mA and/or kV according to patient size. COMPARISON: None. FINDINGS: Image quality: Excellent. Soft tissues: Predominantly left periorbital cellulitis and left cheek cellulitis. However, inflammatory change crosses the midline and also involves the medial right periorbital region. No abscess cavity identified. No enlarged lymph nodes. Vascular: Visualized vascular structures appear patent throughout. Bony vascular foramina and canals appear normal. Bones: Facial bones appear intact, without fractures, erosions, or destruction. Visualized portions of the skull base and auditory canals also appear normal. No periodontal abscess identified. Most teeth no longer present. There are cavities noted. Sinuses: Paranasal sinuses are aerated without fluid levels, mucosal thickening, or mucoceles. Mastoid air cells are aerated. IMPRESSION: Facial cellulitis predominantly involving the left periorbital region and left cheek. No abscess. Dictated by: Kervin Yanez M.D. on 05/19/2022 at 19:15 Approved by: Kervin Yanez M.D. on 05/19/2022 at 19:19
--- NOTE | 2022-05-19 18:07 | ED.GENADULT ---
HPI - General Adult General Chief complaint: Dental/Oral Stated complaint: Tooth infection, Face swelling Time Seen by Provider: 05/19/22 17:58 Source: patient Mode of arrival: Ambulatory Limitations: no limitations History of Present Illness HPI narrative: Patient is a 42-year-old male who is here for evaluation of what he states is a dental infection in the swelling of the left side of his face. He states that he has been diagnosed with a dental infection in the past. Has seen a dentist. Has been on antibiotics but states that he has not been taking it as directed. He is here for continued pain and swelling. No problems breathing. Related Data Home Medications Medication Instructions Recorded Confirmed clindamycin HCl 300 mg capsule 300 mg PO Q6H 05/19/22 05/19/22 Previous Rx's Medication Instructions Recorded levetiracetam 500 mg tablet 1,000 mg PO BID #120 tabs 01/31/21 clindamycin HCl 300 mg capsule 300 mg PO QID 10 days #40 caps 05/19/22 Allergies Allergy/AdvReac Type Severity Reaction Status Date / Time morphine [MORPHINE] Allergy Severe mccann on Verified 05/19/22 18:07 skin Penicillins [PENICILLINS] AdvReac Severe vomiting Verified 05/19/22 18:07 Review of Systems Eyes Comments: Swallowing around left eye ENT Ears, Nose, Mouth, and Throat: Reports system reviewed and no additional complaints, except as documented Integumentary/Breasts Skin/Breast: Reports system reviewed and no additional complaints, except as documented Neurologic Neurologic: Reports system reviewed and no additional complaints, except as documented Patient History Medical History Epilepsy Hypertension Opioid use disorder Surgical History No pertinent past surgical history Social History household members: none Smoking Status: Current every day smoker alcohol intake: current Smoking Status: Current every day smoker tobacco type: cigarettes alcohol intake frequency: a few times a week Substance Use Type: marijuana, heroin, opiates, IV drugs and methamphetamine Exam Initial Vital Signs Initial Vital Signs: Vital Signs Temperature 98.5 F 05/19/22 18:00 Pulse Rate 82 05/19/22 18:00 Respiratory Rate 18 05/19/22 18:00 Blood Pressure 181/99 H 05/19/22 18:00 Pulse Oximetry 97 05/19/22 18:00 Oxygen Delivery Method Room Air 05/19/22 18:00 Const General: cooperative and No ill appearing HENMT Teeth and gingiva: poor dentition and other (No drainable abscess seen intraoral) HENMT Other: Swelling to left side of face the and swelling around the left eye. No erythema. Resp Effort & Inspection: normal respiratory effort Auscultation: clear to auscultation bilaterally Cardio Rate: regular rate Skin Other: No redness noted left side of face Course Orders Ordered: ED Orders 05/19/22 17:55 Basic Metabolic Panel Stat Complete Blood Count AUTO DIFF Stat 05/19/22 18:07 CT facial bones w con Stat Discontinued Medications Sodium Chloride (Normal Saline 0.9%) 1,000 mls @ 1,000 mls/hr IV BOLUS ONE Stop: 05/19/22 19:06 Last Infusion: 05/19/22 19:39 Dose: 0 mls/hr Documented By: Admin: 05/19/22 18:41 Dose: 1,000 mls/hr Documented By: KEYON Clindamycin Phosphate (Cleocin) 900 mg in 50 mls @ 50 mls/hr IV NOW ONE Stop: 05/19/22 19:07 Last Infusion: 05/19/22 19:28 Dose: 0 mls/hr Documented By: Admin: 05/19/22 18:41 Dose: 50 mls/hr Documented By: KEYON Ketorolac Tromethamine (Ketorolac 30 Mg/Ml Vial) 30 mg IV NOW ONE Stop: 05/19/22 20:09 Vital Signs Vital signs: Vital Signs - 8 hr 05/19/22 18:00 05/19/22 18:47 05/19/22 18:47 Temperature 98.5 F Pulse Rate 82 81 Respiratory Rate 18 Blood Pressure 181/99 H 176/88 H Pulse Oximetry 97 99 Oxygen Delivery Method Room Air 05/19/22 18:56 05/19/22 19:00 05/19/22 19:30 Temperature Pulse Rate 85 Respiratory Rate Blood Pressure 171/80 H 175/81 H Pulse Oximetry 100 Oxygen Delivery Method 05/19/22 20:00 Temperature Pulse Rate Respiratory Rate Blood Pressure 182/97 H Pulse Oximetry Oxygen Delivery Method Medical Decision Making Medical Records Medical records reviewed: Yes I reviewed the patient's medical records. Lab Data Lab results reviewed: Yes I reviewed the patient's lab results. 05/19/22 17:55 05/19/22 17:55 Labs: Lab Results 05/19/22 05/19/22 Range/Units 17:55 17:55 WBC 8.2 (4.5-11.0) X10^3/uL RBC 4.75 (4.5-5.9) X10^6/uL Hgb 14.8 (13.5-17.5) g/dL Hct 42.2 (41-53) % MCV 88.9 (80-100) fL MCH 31.2 (26-34) PG MCHC 35.1 (30-36) % RDW 12.2 (11.6-14.8) % Plt Count 180 (150-400) X10^3/uL Neut % (Auto) 69.5 (50-75) % Lymph % (Auto) 20.1 L (25-40) % [place] % (Auto) 8.9 (3-14) % Eos % (Auto) 1.3 L (2-4) % Baso % (Auto) 0.2 (0-2) % Neut # (Auto) 5700 (7072-5598) /uL Lymph # (Auto) 1600 (1092-8337) /uL [place] # (Auto) 700 (0-900) /uL Eos # (Auto) 100 (0-450) /uL Baso # (Auto) 0 (0-100) /uL Sodium 136 L (137-145) mmol/L Potassium 3.7 (3.4-5.1) mmol/L Chloride 97 L (98-107) mmol/L Carbon Dioxide 33 H (22-32) mmol/L BUN 18 (9-20) mg/dL Creatinine 0.77 (0.66-1.25) mg/dL Estimated GFR > 60 (>60) mL/min BUN/Creatinine Ratio 23.4 H (6-22) Glucose 85 (70-100) mg/dL Calcium 9.2 (8.4-10.2) mg/dL Imaging Data CT face: Radiologist's Impression: PROCEDURE:? CT FACIAL BONES W CON ? INDICATIONS:? L sided dental infection with eye involvement ? TECHNIQUE:? After the administration of intravenous contrast, 2.5 mm axial sections acquired from the mid-neck to the frontal sinuses, with coronal and sagittal reformats.? For radiation dose reduction, the following was used:? automated exposure control, adjustment of mA and/or kV according to patient size.? ? COMPARISON:? None. ? FINDINGS:? Image quality:? Excellent.? ? Soft tissues:? Predominantly left periorbital cellulitis and left cheek cellulitis.? However, inflammatory change crosses the midline and also involves the medial right periorbital region.? No abscess cavity identified.? No enlarged lymph nodes.? ? Vascular:? Visualized vascular structures appear patent throughout.? Bony vascular foramina and canals appear normal.? ? Bones:? Facial bones appear intact, without fractures, erosions, or destruction.? Visualized portions of the skull base and auditory canals also appear normal.? No periodontal abscess identified.? Most teeth no longer present.? There are cavities noted. ? Sinuses:? Paranasal sinuses are aerated without fluid levels, mucosal thickening, or mucoceles.? Mastoid air cells are aerated.? ? IMPRESSION:? Facial cellulitis predominantly involving the left periorbital region and left cheek. No abscess.? MDM Narrative Medical decision making narrative: Patient does have poor dentition. There is no drainable abscess noted intraoral. He does have swelling in the left side of his face around his left eye. CT scan shows cellulitis but no drainable abscess. No orbital cellulitis noted review of his medical record shows that he has been on clindamycin most recently for this dental infection. He states that things were improving with the but then for some reason he stopped taking the medication. I advised that he get admitted to the hospital for IV antibiotics given his social situation however the patient was requesting pain medication. Given his opioid use disorder I told him that we would try non opioid pain relief. I did order him Toradol. He stated ?that shit will not work for me?. He stated that if we were not going to control his pain that he would just leave. I did advise that he needs the oral antibiotics and he needs to take them as directed. He would not give me a specific pharmacy that he wanted the medication sent to so a prescription was printed for him. He was advised that he should return to the emergency department if his symptoms worsen. Discharge Plan Departure Patient Disposition: Home Clinical Impression: Cellulitis of face Instructions: DI for Cellulitis -- Adult Activity Restrictions/Additional Instructions: Despite my recommendation for admission to the hospital you opted to be discharged home. I recommend that you take the antibiotics as directed. It is important because you do have an infection in your face that if not properly treated could potentially be life threatening. You can return to the emergency department at any point for worsening symptoms. 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: New clindamycin HCl 300 mg capsule 300 mg PO QID 10 Days Qty: 40 0RF No Action levetiracetam 500 mg tablet 1,000 mg PO BID Qty: 120 0RF clindamycin HCl 300 mg Capsule 300 mg PO Q6H Stand Alone Forms: Patient Portal/API
[2022-05-19 18:13] LABS: Add Manual Diff / Slide Review NO; Basophils Absolute Auto 0 /uL (0-100); Basophils Percent Auto 0.2 % (0-2); Eosinophils Absolute Auto 100 /uL (0-450); Eosinophils Percent Auto 1.3 % (2-4); Hematocrit 42.2 % (41-53); Hemoglobin 14.8 g/dL (13.5-17.5); Lymphocytes Absolute Auto 1600 /uL (1100-4500); Lymphocytes Percent Auto 20.1 % (25-40); Mean Corpuscular HGB Conc 35.1 % (30-36); Mean Corpuscular Hemoglobin 31.2 PG (26-34); Mean Corpuscular Volume 88.9 fL (80-100); Monocytes Absolute Auto 700 /uL (0-900); Monocytes Percent Auto 8.9 % (3-14); Neutrophils Absolute Auto 5700 /uL (1500-7000); Neutrophils Percent Auto 69.5 % (50-75); Platelet Count 180 X10^3/uL (150-400); Red Blood Cell Count 4.75 X10^6/uL (4.5-5.9); Red Cell Distribution Width 12.2 % (11.6-14.8); White Blood Cell Count 8.2 X10^3/uL (4.5-11.0)
[2022-05-19 18:28] LABS: BUN Creatinine Ratio 23.4 (6-22); Blood Urea Nitrogen 18 mg/dL (9-20); Calcium 9.2 mg/dL (8.4-10.2); Carbon Dioxide 33 mmol/L (22-32); Chloride 97 mmol/L (98-107); Estimated Glomerular Filt Rate > 60 mL/min (>60); Glucose 85 mg/dL (70-100); HEMOLYSIS < 15 (0-50); Potassium 3.7 mmol/L (3.4-5.1); Sodium 136 mmol/L (137-145)
--- NOTE | 2022-05-19 18:39 | PC.NURSE ---
full exam deferred to Dr. lee
[2022-05-19] MEDS: SODIUM CHLORIDE 0.9% 1,000 ML 1000 ML IV (18:41)
[2022-05-19] MEDS: CLINDAMYCIN 900 MG/50 ML PIGGYBACK 50 MG IV (18:41)
[2022-05-19 18:47] VITALS: BP 176/88; PULSE 81; O2SAT 99
[2022-05-19 18:56] VITALS: PULSE 85; O2SAT 100
[2022-05-19 19:00] VITALS: BP 171/80
[2022-05-19 19:30] VITALS: BP 175/81
[2022-05-19 20:00] VITALS: BP 182/97
== END 2022-05-19 20:17 | disposition home or self-care (01) ==
PROVIDERS: Emergency Provider Emergency Medicine
DX: L03.211 Cellulitis of face (principal); H57.89 Other specified disorders of eye and adnexa
CPT/HCPCS: 36415; 70487; 80048; 85025; 96365; 99284; Q9967